=== PATIENT | male | born 1985 | race Caucasian/White ===

== ENCOUNTER 2016-11-21 11:51 | Emergency (ER) | payer MEDICAID ==
[2016-11-21] MEDS ORDERED: SODIUM CHLORIDE 0.9% 1,000 ML IV ONE (12:19)
[2016-11-21] MEDS ORDERED: ONDANSETRON 4 MG/2 ML VIAL IVP STA ×2 (12:19→13:04)
[2016-11-21] MEDS ORDERED: ONDANSETRON 4 MG/2 ML VIAL ONE ×2 (12:21→13:08)
[2016-11-21] MEDS ORDERED: KETOROLAC 60 MG/2 ML VIAL IVP STA (13:04)
[2016-11-21] MEDS ORDERED: KETOROLAC 30 MG/ML VIAL ONE (13:08)
== END 2016-11-21 13:34 | disposition home or self-care (01) ==
DX: K52.9 Noninfective gastroenteritis and colitis, unspecified (principal); J45.909 Unspecified asthma, uncomplicated; F17.200 Nicotine dependence, unspecified, uncomplicated

== ENCOUNTER 2016-12-02 13:55 | Emergency (ER) | payer MEDICAID ==
[2016-12-02 14:01] VITALS: BP 133/85
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
[2016-12-02] MEDS ORDERED: HYDROcod/ACETAM 5/325 MG TABLET ONE (14:43)
[2016-12-02] MEDS ORDERED: IBUPROFEN 600 MG TABLET PO ONE (14:43)
[2016-12-02] MEDS: IBUPROFEN 600 MG TABLET PO STA (14:44)
[2016-12-02] MEDS: BACITRACIN OINT TOP STA (14:44)
[2016-12-02] MEDS: HYDROcod/ACETAM 5/325 MG TABLET PO STA (14:44)
== END 2016-12-02 14:49 | disposition home or self-care (01) ==
LOC: ED 13:55
DX: T23.251A Burn of second degree of right palm, initial encounter (principal); T23.231A Burn of second degree of multiple right fingers (nail), not including thumb, initial encounter; X00.8XXA Other exposure to uncontrolled fire in building or structure, initial encounter; X06.3XXA Exposure to melting of other clothing and apparel, initial encounter; Y92.828 Other wilderness area as the place of occurrence of the external cause; J45.909 Unspecified asthma, uncomplicated; F17.200 Nicotine dependence, unspecified, uncomplicated
CPT/HCPCS: 99282; 99283

== ENCOUNTER 2016-12-08 14:32 | Emergency (ER) | payer MEDICAID ==
[2016-12-08] MEDS ORDERED: traMADol 50 MG TABLET PO STA (15:22)
[2016-12-08] MEDS ORDERED: traMADol 50 MG TABLET PO ONE (15:24)
== END 2016-12-08 15:37 | disposition home or self-care (01) ==
DX: T23.001D Burn of unspecified degree of right hand, unspecified site, subsequent encounter (principal); X08.8XXD Exposure to other specified smoke, fire and flames, subsequent encounter; J45.909 Unspecified asthma, uncomplicated; F17.200 Nicotine dependence, unspecified, uncomplicated
CPT/HCPCS: 99283; A9270

== ENCOUNTER 2016-12-10 14:45 | Outpatient (CLI) | payer MEDICAID | END 2016-12-10 14:46 | disposition critical access hospital (66) | DX: R42 Dizziness and giddiness (principal) | CPT/HCPCS: A0425; A0429 ==

== ENCOUNTER 2016-12-10 15:12 | Emergency (ER) | payer MEDICAID ==
[2016-12-10] MEDS ORDERED: LIDOCAINE PATCH 5% TOP STA (16:41)
[2016-12-10] MEDS ORDERED: SODIUM CHLORIDE 0.9% 1,000 ML IV ONE (16:41)
[2016-12-10] MEDS ORDERED: ONDANSETRON 4 MG/2 ML VIAL IVP STA (16:41)
[2016-12-10] MEDS ORDERED: LORazepam 2 MG/ML SYRINGE IVP STA (16:41)
[2016-12-10] MEDS ORDERED: LORazepam 2 MG/ML SYRINGE ONE (16:48)
[2016-12-10] MEDS ORDERED: ONDANSETRON 4 MG/2 ML VIAL ONE (16:50)
[2016-12-10] MEDS ORDERED: LIDOCAINE PATCH 5% TOP ONE (16:51)
[2016-12-10] MEDS ORDERED: FAMOTIDINE 20 MG TABLET PO STA (17:59)
[2016-12-10] MEDS ORDERED: MAG HYDROX/AL HYDROX/SIMETH 30 ML UDC PO STA (17:59)
[2016-12-10] MEDS ORDERED: LIDOCAINE VISCOUS 2% 15 ML UDC MM STA (17:59)
[2016-12-10] MEDS ORDERED: FAMOTIDINE 20 MG TABLET ONE (18:01)
[2016-12-10] MEDS ORDERED: MAG HYDROX/AL HYDROX/SIMETH 30 ML UDC ONE (18:02)
[2016-12-10] MEDS ORDERED: LIDOCAINE VISCOUS 2% 15 ML UDC MM ONE (18:02)
== END 2016-12-10 18:15 | disposition home or self-care (01) ==
DX: R42 Dizziness and giddiness (principal); T39.395A Adverse effect of other nonsteroidal anti-inflammatory drugs [NSAID], initial encounter; Y92.009 Unspecified place in unspecified non-institutional (private) residence as the place of occurrence of the external cause; J45.909 Unspecified asthma, uncomplicated; F17.200 Nicotine dependence, unspecified, uncomplicated; K29.00 Acute gastritis without bleeding; T23.201D Burn of second degree of right hand, unspecified site, subsequent encounter; X08.8XXD Exposure to other specified smoke, fire and flames, subsequent encounter
CPT/HCPCS: 36415; 80053; 80306; 80320; 81003; 83690; 85025; 93005; 93010; 96361; 96374; 96375; 99284; A9270; J2060

== ENCOUNTER 2016-12-17 15:14 | Emergency (ER) | payer MEDICAID ==
[2016-12-17] MEDS ORDERED: CYCLOBENZAPRINE 10 MG TABLET PO STA (17:02)
[2016-12-17] MEDS ORDERED: CYCLOBENZAPRINE 10 MG TABLET PO ONE (17:04)
== END 2016-12-17 18:07 | disposition left against medical advice (07) ==
DX: M54.2 Cervicalgia (principal); W13.2XXA Fall from, out of or through roof, initial encounter; J45.909 Unspecified asthma, uncomplicated; Z53.29 Procedure and treatment not carried out because of patient's decision for other reasons
CPT/HCPCS: 99282; 99283; A9270

== ENCOUNTER 2016-12-26 17:28 | Emergency (ER) | payer MEDICAID ==
[2016-12-26] MEDS ORDERED: IBUPROFEN 800 MG TABLET PO ONE (17:35)
[2016-12-26] MEDS ORDERED: HYDROcod/ACETAM 5/325 MG TABLET PO STA (17:40)
[2016-12-26] MEDS ORDERED: IPRATROPIUM/ALBUTEROL 3 ML NEB INH STA (17:40)
[2016-12-26] MEDS ORDERED: predniSONE 20 MG TABLET PO STA (17:40)
[2016-12-26] MEDS ORDERED: DOXYCYCLINE 100 MG TABLET PO STA (17:41)
[2016-12-26] MEDS ORDERED: predniSONE 20 MG TABLET ONE (17:43)
[2016-12-26] MEDS ORDERED: DOXYCYCLINE 100 MG TABLET PO ONE (17:43)
[2016-12-26] MEDS ORDERED: HYDROcod/ACETAM 5/325 MG TABLET ONE (17:43)
[2016-12-26] MEDS ORDERED: IPRATROPIUM/ALBUTEROL 3 ML NEB INH ONE (17:47)
== END 2016-12-26 18:57 | disposition home or self-care (01) ==
DX: M50.322 Other cervical disc degeneration at C5-C6 level (principal); J45.901 Unspecified asthma with (acute) exacerbation; K08.89 Other specified disorders of teeth and supporting structures; R05 Cough; F90.9 Attention-deficit hyperactivity disorder, unspecified type; M47.892 Other spondylosis, cervical region; W13.2XXA Fall from, out of or through roof, initial encounter; F17.200 Nicotine dependence, unspecified, uncomplicated; R03.0 Elevated blood-pressure reading, without diagnosis of hypertension; Z59.0 Homelessness
CPT/HCPCS: 72125; 94640; 99283; A9270; J7512; J7620

== ENCOUNTER 2017-01-09 12:01 | Emergency (ER) | payer MEDICAID ==
--- NOTE | 2017-01-09 13:03 | ED Physician Documentation ---
PD HPI HEENT - Stated complaint Stated Complaint: TOOTH PX/NAUSEA - Chief complaint Chief Complaint: Heent - History obtained from History obtained from: Patient - History of Present Illness Timing - onset: How many days ago (4) Timing - duration: Days (4) Timing - details: Gradual onset, Still present Location: Tooth Improves: Nothing Worsens: Everything Associated symptoms: Congestion, Other (nauasea) Similar symptoms before: Diagnosis (bad teeth) Recently seen: Emergency Dept (The patient was seen in the ED) - Additional information Additional information: 31 y/o male living in a tent on family property has had some trouble with his teeth and this is bad enough that he has been unable to eat for the past 4 days. He has pain with hot, cold, pressure and just about anything. He has only the four bottom front teeth left in his mouth. These are sensitive to everything and the patient feels that he is having the nausea because he is not eating. He reports that he is now staying in a tent and they have recently buried his father about a week ago. He has some asthma as well. He does not yet have his dental appointment. PD PAST MEDICAL HISTORY - Past Medical History Past Medical History: Yes Respiratory: Asthma Neuro: None Endocrine/Autoimmune: None GI: Pancreatitis Psych: ADD/ADHD - Past Surgical History Past Surgical History: Yes HEENT: Tonsil/Adenoidectomy - Present Medications Home Medications: Ambulatory Orders Medication Instructions Recorded Confirmed Torfinol 12/17/16 Albuterol Sulfate [Proventil Hfa 1 - 2 puffs IH Q4H PRN #1 12/26/16 Inhaler] hfa.[email or web address].ad predniSONE [Deltasone] 60 mg PO DAILY 5 Days 12/26/16 Clindamycin [Cleocin] 300 mg PO Q6H #28 capsule 01/09/17 HYDROcod/ACETAM 5/325 [[place] 5/325] 1 - 2 ea PO Q6H PRN #15 tablet 01/09/17 Ondansetron Odt [Zofran] 4 mg TL Q6H PRN #10 tablet 01/09/17 - Allergies Allergies/Adverse Reactions: Allergies Allergy/AdvReac Type Severity Reaction Status Date / Time meloxicam Allergy Intermediate Dizziness Verified 12/10/16 15:20 Penicillins Allergy Unknown Verified 12/02/16 14:00 prochlorperazine Allergy Anxiety Verified 12/02/16 14:00 [From Compazine] prochlorperazine edisylate * Allergy Anxiety Verified 12/02/16 14:00 [From Hangar Sevenazine] prochlorperazine maleate * Allergy Anxiety Verified 12/02/16 14:00 [From Hangar Sevenazine] - Social History Does the pt smoke?: Yes Smoking Status: Current every day smoker Does the pt drink ETOH?: No Does the pt have substance abuse?: Yes - Immunizations Immunizations are current?: Yes Immunizations: TDAP current <10years - POLST Patient has POLST: No PD ED PE NORMAL - HEENT HEENT: Atraumatic, PERRL, EOMI, Ears normal, Other (dry mucous membranes and dental decay is present on the lower 4 front teeth. These are the only natural teeth left in the mouth. There is decay at the gum line and a hole in the top of each tooth. ) - Neck Neck: Supple, no meningeal sign, No bony TTP - Cardiac Cardiac: No murmur, Other (tachy ) - Respiratory Respiratory: No respiratory distress, Other (there are transmitted rhonchi in all dorantes. ) - Abdomen Abdomen: Soft, Non tender - Back Back: No CVA TTP, No spinal TTP - Derm Derm: Normal color, Warm and dry, No rash - Extremities Extremities: No deformity, No edema - Neuro Neuro: No motor deficit, No sensory deficit - Psych Psych: Normal mood, Normal affect Results - Vitals Vitals: Vital Signs - 24 hr 01/09/17 12:01 Temperature 36.9 C Heart Rate 113 H Respiratory 18 Rate Blood Pressure 129/89 H O2 Saturation 95 Oxygen O2 Source Room air - Labs Labs: Laboratory Tests 01/09/17 01/09/17 01/09/17 13:00 13:12 13:12 WBC 9.0 RBC 4.63 L Hgb 15.1 Hct 43.9 MCV 94.6 H MCH 32.6 H MCHC 34.5 RDW 15.1 H Plt Count 220 MPV 7.9 Neut # 5.8 Lymph # 2.3 Ray # 0.7 Eos # 0.2 Baso # 0.0 Absolute Nucleated RBC 0.00 Nucleated RBCs 0.0 Sodium 135 Potassium 4.1 Chloride 105 Carbon Dioxide 22 Anion Gap 8.0 BUN 15 Creatinine 0.9 Estimated GFR (MDRD) 98 Glucose 120 H Calcium 9.3 Total Bilirubin 0.4 AST 27 ALT 38 Alkaline Phosphatase 77 Total Protein 7.0 Albumin 4.4 Globulin 2.6 Albumin/Globulin Ratio 1.7 Lipase 59 H Urine Color YELLOW Urine Clarity CLEAR Urine pH 6.0 Ur Specific [place] 1.010 Urine Protein NEGATIVE Urine Glucose (UA) NEGATIVE Urine Ketones NEGATIVE Urine Occult Blood NEGATIVE Urine Nitrite NEGATIVE Urine Bilirubin NEGATIVE Urine Urobilinogen 0.2 (NORMAL) Ur Leukocyte Esterase NEGATIVE Ur Microscopic Review NOT INDICATED Urine Culture Comments NOT INDICATED Urine Opiates Screen NEGATIVE Ur Oxycodone Screen NEGATIVE Urine Methadone Screen NEGATIVE Ur Propoxyphene Screen NEGATIVE Ur Barbiturates Screen NEGATIVE Ur Tricyclics Screen NEGATIVE Ur Phencyclidine Scrn NEGATIVE Ur Amphetamine Screen NEGATIVE U Methamphetamines Scrn NEGATIVE U Benzodiazepines Scrn NEGATIVE Urine Cocaine Screen NEGATIVE U Cannabinoids Screen POSITIVE H Procedures - IVC sono (time) 1410 Bedside IVC sono: IVC measures (cm) (1.64), IVC collapsed c insp (cm) (1.36), Euvolemia PD MEDICAL DECISION MAKING - ED course Complexity details: reviewed results, re-evaluated patient, considered differential, d/w patient ED course: 31 y/o male with nothing to eat or drink for the past 4 days with bad teeth on the bottom and stress of family has developed vomiting as well. An IV is begun and he is given an infusion of a banana bag some zofran and some toradal as well as some decadron. At the conclusion of the infusion his IVC was interrogated and he now appears euvolemic. His nausea improved but he continues to have pain. The exposed areas of the remaining teeth are covered with CAVIT to reduce irritation. Departure - Departure Disposition: 01 Home, Self Care Clinical Impression: Pain, dental, Dehydration Condition: Stable Instructions: ED Dehydration, ED Tooth Pain Follow-Up: [facility] [Provider Group] Prescriptions: Clindamycin [Cleocin] 300 mg PO Q6H #28 capsule HYDROcod/ACETAM 5/325 [[place] 5/325] 1 - 2 ea PO Q6H PRN #15 tablet PRN Reason: Pain Ondansetron Odt [Zofran] 4 mg TL Q6H PRN #10 tablet PRN Reason: Nausea / Vomiting
[2017-01-09] MEDS ORDERED: ONDANSETRON 4 MG/2 ML VIAL ONE (13:07)
[2017-01-09] MEDS ORDERED: CHERRY SYRUP 10 ML UDC PO ONE (13:07)
[2017-01-09] MEDS ORDERED: DEXAMETHASONE 10 MG/ML VIAL ONE (13:07)
[2017-01-09] MEDS ORDERED: KETOROLAC 30 MG/ML VIAL ONE (13:07)
[2017-01-09] MEDS: KETOROLAC 60 MG/2 ML VIAL IVP STA (13:19)
[2017-01-09] MEDS: FOLIC ACID INJ 1 MG, THIAMINE INJ 100 MG, MAGNESIUM SULFATE 2 GM, MULTIVITAMIN 10 ML in... IV STA ×5 (13:19)
[2017-01-09] MEDS: ONDANSETRON 4 MG/2 ML VIAL IVP STA (13:20)
[2017-01-09] MEDS: DEXAMETHASONE 10 MG/ML VIAL IVP STA (13:20)
[2017-01-09 13:27] LABS: BILIRUBIN,URINE NEGATIVE (NEGATIVE)
[2017-01-09 13:29] LABS: BASOPHILS % (AUTO) 0.4 %; EOSINOPHILS # (AUTO) 0.2 10^3/uL (0.0-0.7); EOSINOPHILS % (AUTO) 2.6 %; HCT - HEMATOCRIT 43.9 % (42.0-52.0); HGB - HEMOGLOBIN 15.1 g/dL (14.0-18.0); LYMPHOCYTES # (AUTO) 2.3 10^3/uL (1.5-3.5); LYMPHOCYTES % (AUTO) 25.1 %; MEAN CORPUSCULAR HEMOGLOBIN 32.6 pg (27.0-31.0); MEAN CORPUSCULAR HGB CONC 34.5 g/dL (32.0-36.0); MEAN CORPUSCULAR VOLUME 94.6 fL (80.0-94.0); MEAN PLATELET VOLUME 7.9 fL (7.4-11.4); MONOCYTES # (AUTO) 0.7 10^3/uL (0.0-1.0); MONOCYTES % (AUTO) 7.8 %; NEUTROPHILS # (AUTO) 5.8 10^3/uL (1.5-6.6); NEUTROPHILS % (AUTO) 64.1 %; RED BLOOD COUNT 4.63 10^6/uL (4.70-6.10); RED CELL DISTRIBUTION WIDTH 15.1 % (12.0-15.0)
[2017-01-09 13:34] LABS: UA CHARGE (STRIP ONLY) YES; UR CULTURE IF IND NOT INDICATED
[2017-01-09 13:40] LABS: ALBUMIN/GLOBULIN RATIO 1.7 (1.0-2.2); BILIRUBIN,TOTAL 0.4 mg/dL (0.2-1.0); CALCIUM 9.3 mg/dL (8.5-10.3); CREATININE 0.9 mg/dL (0.6-1.2); POTASSIUM 4.1 mmol/L (3.5-5.0)
[2017-01-09 14:29] VITALS: BP 128/78
== END 2017-01-09 14:34 | disposition home or self-care (01) ==
LOC: ED 12:01
DX: K08.89 Other specified disorders of teeth and supporting structures (principal); E86.0 Dehydration; J45.909 Unspecified asthma, uncomplicated; F17.200 Nicotine dependence, unspecified, uncomplicated
CPT/HCPCS: 80053; 80306; 81001; 81003; 83690; 85025; 87086; 96365; 96375; 99283; 99284

== ENCOUNTER 2017-02-06 11:50 | Emergency (ER) | payer MEDICAID ==
--- NOTE | 2017-02-06 15:08 | ED Physician Documentation ---
PD HPI HEENT - Stated complaint Stated Complaint: MOUTH PX - Chief complaint Chief Complaint: General - History obtained from History obtained from: Patient - History of Present Illness Timing - onset: How many days ago (5) Timing - duration: Days (5) Timing - details: Gradual onset, Still present Location: Tooth Improves: Other (beer) Worsens: Everything Associated symptoms: Congestion. No: Fever Similar symptoms before: Diagnosis (dental pain) Recently seen: Emergency Dept (Seen last month and treated with clindamyacin with improvement.) - Additional information Additional information: 31 y/o male with bad teeth on the bottom improved with treatment last time and has begun to have pain again. He is medicating this with beer and has begun to have the shakes when he is not drinking and he would like to stop drinking. Review of Systems Constitutional: denies: Fever Eyes: denies: Decreased vision Ears: denies: Ear pain Nose: reports: Congestion Throat: reports: Dental pain / toothache. denies: Sore throat Respiratory: reports: Cough. denies: Dyspnea GI: denies: Abdominal Pain, Nausea, Vomiting : denies: Dysuria, Frequency Skin: denies: Rash Musculoskeletal: denies: Neck pain, Back pain, Extremity pain Neurologic: denies: Generalized weakness, Focal weakness, Numbness PD PAST MEDICAL HISTORY - Past Medical History Respiratory: Asthma Neuro: None Endocrine/Autoimmune: None GI: Pancreatitis Psych: ADD/ADHD - Past Surgical History Past Surgical History: Yes HEENT: Tonsil/Adenoidectomy - Present Medications Home Medications: Ambulatory Orders Medication Instructions Recorded Confirmed Albuterol Sulfate [Proventil Hfa 1 - 2 puffs IH Q4H PRN #1 12/26/16 Inhaler] [email or web address] Clindamycin [Cleocin] 300 mg PO Q6H #28 capsule 02/06/17 HYDROcod/ACETAM 5/325 [Raymond 5/325] 1 - 2 ea PO Q6H PRN #15 tablet 02/06/17 Lorazepam [Ativan] 1 mg PO Q6HR PRN #20 tablet 02/06/17 - Allergies Allergies/Adverse Reactions: Allergies Allergy/AdvReac Type Severity Reaction Status Date / Time meloxicam Allergy Intermediate Dizziness Verified 02/06/17 12:14 Penicillins Allergy Unknown Verified 02/06/17 12:14 prochlorperazine Allergy Anxiety Verified 02/06/17 12:14 [From Compazine] prochlorperazine edisylate * Allergy Anxiety Verified 02/06/17 12:14 [From Compazine] prochlorperazine maleate * Allergy Anxiety Verified 02/06/17 12:14 [From Compazine] - Social History Does the pt smoke?: Yes Smoking Status: Current every day smoker Does the pt drink ETOH?: No Does the pt have substance abuse?: Yes - Immunizations Immunizations are current?: Yes Immunizations: TDAP current <10years - POLST Patient has POLST: No PD ED PE NORMAL - Vitals Vital signs reviewed: Yes (normal ) - HEENT HEENT: Atraumatic, PERRL, EOMI, Other (There is an uppper denture and 4 jena teeth in the front bottom all of which appear inflammed along the gum line. ) - Neck Neck: Supple, no meningeal sign, No bony TTP - Respiratory Respiratory: No respiratory distress - Derm Derm: Normal color, Warm and dry, No rash - Extremities Extremities: No deformity, No edema - Neuro Neuro: No motor deficit, No sensory deficit - Psych Psych: Normal mood, Normal affect Results - Vitals Vitals: Vital Signs - 24 hr 02/06/17 12:07 Temperature 36.8 C Heart Rate 96 Respiratory 16 Rate Blood Pressure 129/77 O2 Saturation 97 Oxygen O2 Source Room air PD MEDICAL DECISION MAKING - ED course Complexity details: considered differential, d/w patient ED course: 31 y/o male with a dental infection has been medicating with beer and wants to stop drinking. He has an appointment to see the dentist in 2 weeks. Departure - Departure Disposition: 01 Home, Self Care Clinical Impression: Pain, dental Alcohol withdrawal Qualifiers: Complication of substance-induced condition: uncomplicated Qualified Code(s): F10.230 - Alcohol dependence with withdrawal, uncomplicated Condition: Stable Instructions: ED Withdrawal Alcohol, ED Abscess Tooth Follow-Up: [facility] [Provider Group] Prescriptions: Lorazepam [Ativan] 1 mg PO Q6HR PRN #20 tablet PRN Reason: withdrawal symptoms Clindamycin [Cleocin] 300 mg PO Q6H #28 capsule HYDROcod/ACETAM 5/325 [Raymond 5/325] 1 - 2 ea PO Q6H PRN #15 tablet PRN Reason: Pain
[2017-02-06 15:36] VITALS: BP 141/97
== END 2017-02-06 15:33 | disposition home or self-care (01) ==
LOC: ED 11:50
DX: K08.89 Other specified disorders of teeth and supporting structures (principal); F17.200 Nicotine dependence, unspecified, uncomplicated; F10.230 Alcohol dependence with withdrawal, uncomplicated
CPT/HCPCS: 99283

== ENCOUNTER 2017-03-13 12:17 | Emergency (ER) | payer MEDICAID ==
[2017-03-13] MEDS ORDERED: SODIUM CHLORIDE 0.9% 1,000 ML IV ONE (12:28)
[2017-03-13] MEDS ORDERED: FOLIC ACID INJ 1 MG, THIAMINE INJ 100 MG, MAGNESIUM SULFATE 2 GM, MULTIVITAMIN 10 ML in... IV STA ×5 (12:35)
[2017-03-13] MEDS ORDERED: LORazepam 2 MG/ML SYRINGE IVP STA ×2 (12:36→14:24)
--- NOTE | 2017-03-13 12:42 | ED Physician Documentation ---
History of Present Illness - Stated complaint Stated Complaint: SOA/VOMITING - Chief complaint Chief Complaint: General - History obtained from History obtained from: Patient - Additonal information Additional information: Patient is a 31-year-old male with a history of alcoholism and asthma who presents with a complaint of nausea vomiting, and diarrhea. He has had these symptoms for the past couple days. He last consumed alcohol about a day ago. He says when he does not consume alcohol he often shakes but has never had blackouts. In general he has been trying to decrease his alcohol consumption. He also complains of low back pain which he thinks is unrelated to anything acute this low back pain is been present for a couple months. 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 It is worse when he eats and drinks. He does have a history of pancreatitis he says but it has been a long time he is unsure whether his symptoms are pancreatic in nature. Review of systems: For pertinent positive and negatives in the review of systems please see history of present illness. Otherwise all other systems have been reviewed and are negative. Dragon disclaimer: Parts of this medical record were created using voice recognition technology. Because of the inherent limitations of this system occasional same sounding word substitutions do occur and persist despite proofreading. Please read the document for context. Review of Systems Ten Systems: 10 systems reviewed and negative Constitutional: denies: Fever, Chills Cardiac: denies: Chest pain / pressure, Palpitations Respiratory: reports: Cough, Wheezing. denies: Dyspnea GI: reports: Abdominal Pain, Nausea, Vomiting, Diarrhea PD PAST MEDICAL HISTORY - Past Medical History Past Medical History: Yes Respiratory: Asthma Neuro: None Endocrine/Autoimmune: None GI: Pancreatitis Psych: ADD/ADHD - Past Surgical History Past Surgical History: Yes HEENT: Tonsil/Adenoidectomy - Present Medications Home Medications: Ambulatory Orders Medication Instructions Recorded Confirmed Ondansetron Odt [Zofran] 4 mg TL Q6H PRN #10 tablet 03/13/17 raNITIdine [Zantac] 150 mg PO DAILY #28 tablet 03/13/17 - Allergies Allergies/Adverse Reactions: Allergies Allergy/AdvReac Type Severity Reaction Status Date / Time meloxicam Allergy Intermediate Dizziness Verified 03/13/17 12:24 Penicillins Allergy Unknown Verified 03/13/17 12:24 prochlorperazine Allergy Anxiety Verified 03/13/17 12:24 [From Compazine] prochlorperazine edisylate * Allergy Anxiety Verified 03/13/17 12:24 [From Compazine] prochlorperazine maleate * Allergy Anxiety Verified 03/13/17 12:24 [From Compazine] - Social History Does the pt smoke?: Yes Smoking Status: Current every day smoker Does the pt drink ETOH?: Yes Does the pt have substance abuse?: No - Immunizations Immunizations are current?: Yes Immunizations: TDAP current <10years - POLST Patient has POLST: No PD ED PE NORMAL - General General: No acute distress, Well developed/nourished, Other (Flushed and tremulous. Very shaky. He is alert and oriented 3. Smells heavily of tobacco ) - HEENT HEENT: Atraumatic - Cardiac Cardiac: No murmur, No gallop, No rub, Other (Mildly tachycardic) - Respiratory Respiratory: Other (Occasional end expiratory wheezes) - Abdomen Abdomen: Normal bowel sounds, Soft, Non tender, Non distended - Back Back: No CVA TTP - Derm Derm: Warm and dry, No rash, Other - Extremities Extremities: No deformity, No tenderness to palpate - Neuro Neuro: Alert and oriented X 3, No motor deficit, No sensory deficit - Psych Psych: Normal mood, Normal affect Results - Vitals Vitals: Vital Signs - 24 hr 03/13/17 03/13/17 03/13/17 12:21 13:29 14:49 Temperature 36.8 C Heart Rate 122 H 79 81 Respiratory 16 16 16 Rate Blood Pressure 135/86 H 110/67 110/68 O2 Saturation 98 97 98 Oxygen O2 Source Room air - Labs Labs: Laboratory Tests 03/13/17 03/13/17 03/13/17 12:30 12:40 12:40 WBC 8.8 RBC 4.60 L Hgb 15.4 Hct 44.8 MCV 97.3 H MCH 33.4 H MCHC 34.3 RDW 13.4 Plt Count 203 MPV 8.3 Neut # 6.0 Lymph # 1.8 [place] # 0.9 Eos # 0.1 Baso # 0.1 Absolute Nucleated RBC 0.00 Nucleated RBCs 0.0 Sodium 135 Potassium 3.7 Chloride 103 Carbon Dioxide 22 Anion Gap 10.0 BUN 11 Creatinine 1.0 Estimated GFR (MDRD) 87 L Glucose 103 H Calcium 9.3 Total Bilirubin 0.8 AST 38 ALT 56 Alkaline Phosphatase 84 Total Protein 7.1 Albumin 4.2 Globulin 2.9 Albumin/Globulin Ratio 1.4 Lipase 36 Urine Color DARK YELLOW Urine Clarity CLOUDY Urine pH 6.0 Ur Specific [place] >=1.030 H Urine Protein NEGATIVE Urine Glucose (UA) NEGATIVE Urine Ketones 15 H Urine Occult Blood NEGATIVE Urine Nitrite NEGATIVE Urine Bilirubin MODERATE H Urine Urobilinogen 0.2 (NORMAL) Ur Leukocyte Esterase NEGATIVE Urine RBC 0-5 Urine WBC 4-5 Ur Squamous Epith Cells MOD Squamous H Urine Bacteria Moderate H Urine Mucus Few Strands Ur Microscopic Review INDICATED Urine Culture Comments NOT INDICATED Ethyl Alcohol < 5.0 PD MEDICAL DECISION MAKING - ED course Complexity details: reviewed old records, reviewed results, re-evaluated patient , considered differential, d/w patient ED course: Patient is a 31-year-old male who presents with a complaint of epigastric abdominal pain nausea vomiting and diarrhea. Historically think this patient has alcohol abuse issues although he says he gets by with drinking 3-4 times a week and gets shaky but otherwise does not have withdrawal symptoms. He does have emergency department care plan that recommend strongly against use of narcotics in this patient. He is supposed to be diverted back to see [facility]. The patient Presented mildly tachycardic and was tremulous. This might represent early alcohol withdrawal or perhaps even opiate withdrawal. 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 He does not have any numbness or weakness in his examination really is fairly benign I did not detect any tenderness epigastrium or any significant tenderness in the paraspinal muscles. He was given a liter of IV fluids here and 1 L of fluid with magnesium, thiamine and multivitamin. He is given a dose of Zofran and 2 doses of Ativan 1 mg each. We have addressed his hydration issue. In regards to his epigastric pain I suspect he might have a mild case of gastritis. His transaminases and lipase are normal. The patient did request narcotic Analgesics on a couple occasions. I told him I was not going to give him any opiates. I have reviewed his care planI think from a risk-benefit standpoint the use of antibiotics and other narcotics are contraindicated. I am directing him back to [facility] clinic. Disposition to home clinical impression: 1. Nausea vomiting diarrhea 2. Possible opiate and/or alcohol Withdrawal symptoms 3.Epigastric abdominal pain-suspect possible mild gastritis Departure - Departure Disposition: Home, Self Care Clinical Impression: Alcohol abuse, Gastritis and duodenitis Condition: Good Instructions: Alcoholism, ED Gastritis, ED Pain Management Contract Requ Follow-Up: [facility] [Provider Group] Prescriptions: raNITIdine [Zantac] 150 mg PO DAILY #28 tablet Ondansetron Odt [Zofran] 4 mg TL Q6H PRN #10 tablet PRN Reason: Nausea / Vomiting
[2017-03-13] MEDS ORDERED: LORazepam 2 MG/ML SYRINGE ONE ×2 (12:43→14:27)
[2017-03-13 12:54] LABS: BASOPHILS # (AUTO) 0.1 10^3/uL (0.0-0.1); BASOPHILS % (AUTO) 0.7 %; EOSINOPHILS # (AUTO) 0.1 10^3/uL (0.0-0.7); EOSINOPHILS % (AUTO) 1.4 %; HCT - HEMATOCRIT 44.8 % (42.0-52.0); HGB - HEMOGLOBIN 15.4 g/dL (14.0-18.0); LYMPHOCYTES # (AUTO) 1.8 10^3/uL (1.5-3.5); MEAN CORPUSCULAR HEMOGLOBIN 33.4 pg (27.0-31.0); MEAN CORPUSCULAR HGB CONC 34.3 g/dL (32.0-36.0); MEAN CORPUSCULAR VOLUME 97.3 fL (80.0-94.0); MEAN PLATELET VOLUME 8.3 fL (7.4-11.4); MONOCYTES # (AUTO) 0.9 10^3/uL (0.0-1.0); MONOCYTES % (AUTO) 9.9 %; RED CELL DISTRIBUTION WIDTH 13.4 % (12.0-15.0); UNCORRECTED WHITE BLOOD COUNT 8.8 x10^3/uL; WHITE BLOOD COUNT 8.8 x10^3/uL (4.8-10.8)
[2017-03-13 12:56] LABS: UA w/ MICROSCOPIC CHARGE YES
[2017-03-13 13:02] LABS: BILIRUBIN,URINE MODERATE (NEGATIVE)
[2017-03-13 13:08] LABS: UR CULTURE IF IND NOT INDICATED
[2017-03-13 13:12] LABS: ALBUMIN/GLOBULIN RATIO 1.4 (1.0-2.2); BILIRUBIN,TOTAL 0.8 mg/dL (0.2-1.0); BUN - BLOOD UREA NITROGEN 11 mg/dL (6-20); CALCIUM 9.3 mg/dL (8.5-10.3); CARBON DIOXIDE - CO2 22 mmol/L (21-32); CHLORIDE 103 mmol/L (101-111); GFR - MDRD 87 (>89); GLUCOSE 103 mg/dL (70-100); LIPASE 36 U/L (22-51); POTASSIUM 3.7 mmol/L (3.5-5.0); SODIUM 135 mmol/L (135-145); TOTAL PROTEIN 7.1 g/dL (6.7-8.2)
[2017-03-13] MEDS ORDERED: raNITIdine INJ 50 MG in SODIUM CHLORIDE 0.9% 50 ML IV ONE (13:17)
[2017-03-13] MEDS ORDERED: ONDANSETRON 4 MG/2 ML VIAL IVP STA (13:18)
[2017-03-13] MEDS ORDERED: FAMOTIDINE 20 MG/50 ML 50 ML IV STA (13:22)
[2017-03-13] MEDS ORDERED: ONDANSETRON 4 MG/2 ML VIAL ONE (13:22)
[2017-03-13] MEDS ORDERED: FAMOTIDINE 20 MG/50 ML 50 ML IV ONE (13:32)
[2017-03-13 14:49] VITALS: BP 110/68
== END 2017-03-13 16:05 | disposition home or self-care (01) ==
LOC: ED 12:17
DX: R11.2 Nausea with vomiting, unspecified (principal); R19.7 Diarrhea, unspecified; R10.13 Epigastric pain
CPT/HCPCS: 36415; 80053; 80320; 81001; 83690; 85025; 96365; 96366; 96368; 96375; 96376; 99284; J2060; J3411; 81003; 87086

== ENCOUNTER 2017-04-09 14:13 | Emergency (ER) | payer MEDICAID ==
[2017-04-09] MEDS: diphenhydrAMINE INJ 50 MG/ML VIAL IVP STA (17:09)
[2017-04-09] MEDS: METOCLOPRAMIDE 10 MG/2 ML VIAL IVP STA (17:09)
[2017-04-09] MEDS ORDERED: diphenhydrAMINE INJ 50 MG/ML VIAL ONE (17:09)
[2017-04-09] MEDS ORDERED: SODIUM CHLORIDE FLUSH 0.9% 10 ML SYRINGE IVP ONE (17:10)
[2017-04-09] MEDS: SODIUM CHLORIDE 0.9% 1,000 ML IV ONE (17:10)
[2017-04-09] MEDS ORDERED: METOCLOPRAMIDE 10 MG/2 ML VIAL ONE (17:10)
[2017-04-09 17:16] LABS: BASOPHILS # (AUTO) 0.1 10^3/uL (0.0-0.1); BASOPHILS % (AUTO) 0.6 %; EOSINOPHILS # (AUTO) 0.1 10^3/uL (0.0-0.7); EOSINOPHILS % (AUTO) 0.9 %; HCT - HEMATOCRIT 50.9 % (42.0-52.0); HGB - HEMOGLOBIN 17.2 g/dL (14.0-18.0); LYMPHOCYTES # (AUTO) 1.8 10^3/uL (1.5-3.5); LYMPHOCYTES % (AUTO) 17.9 %; MEAN CORPUSCULAR HEMOGLOBIN 33.1 pg (27.0-31.0); MEAN CORPUSCULAR HGB CONC 33.8 g/dL (32.0-36.0); MEAN PLATELET VOLUME 7.7 fL (7.4-11.4); MONOCYTES # (AUTO) 0.8 10^3/uL (0.0-1.0); MONOCYTES % (AUTO) 7.8 %; NEUTROPHILS # (AUTO) 7.5 10^3/uL (1.5-6.6); NEUTROPHILS % (AUTO) 72.8 %; RED BLOOD COUNT 5.19 10^6/uL (4.70-6.10); RED CELL DISTRIBUTION WIDTH 13.5 % (12.0-15.0); UNCORRECTED WHITE BLOOD COUNT 10.4 x10^3/uL; WHITE BLOOD COUNT 10.4 x10^3/uL (4.8-10.8)
[2017-04-09 17:25] LABS: ALBUMIN/GLOBULIN RATIO 1.6 (1.0-2.2); CALCIUM 9.5 mg/dL (8.5-10.3); CREATININE 1.1 mg/dL (0.6-1.2); POTASSIUM 4.1 mmol/L (3.5-5.0); TOTAL PROTEIN 7.5 g/dL (6.7-8.2)
[2017-04-09] MEDS ORDERED: LORazepam 2 MG/ML SYRINGE ONE (18:03)
[2017-04-09] MEDS: THIAMINE INJ 100 MG in SODIUM CHLORIDE 0.9% 50 ML IV STA (18:05)
[2017-04-09] MEDS: LORazepam 2 MG/ML SYRINGE IVP STA (18:05)
[2017-04-09 18:47] VITALS: BP 109/79
--- NOTE | 2017-04-09 18:50 | ED Physician Documentation ---
History of Present Illness - Stated complaint Stated Complaint: VOMITING - Chief complaint Chief Complaint: General - Additonal information Additional information: This patient is a 31-year-old male who has a admitted history of alcoholism. He normally drinks in the afternoon after working all day sleeps and then goes to work in the morning. Apparently this evening he apparently yesterday he was told that he has to quit drinking as a requirement of his current housing situation. Yesterday he started cutting back in alcohol and has not had much to drink for most of the day now presents feeling nauseous and jittery. It is unclear whether he is going to abstain from alcohol but he wants to at least try. He refuses going to treatment at this time. Review of systems: For pertinent positive and negatives in the review of systems please see the history of present illness, otherwise all other systems have been reviewed and are negative. Dragon disclaimer: Parts of this medical record were created using voice recognition technology. Because of the inherent limitations of this system, occasional same sounding word substitutions do occur and persist despite proofreading. Please read the document for context. Review of Systems Constitutional: denies: Fever, Chills, Myalgias Throat: denies: Dental pain / toothache Cardiac: denies: Chest pain / pressure, Palpitations Respiratory: denies: Dyspnea, Cough GI: reports: Nausea, Vomiting. denies: Abdominal Pain, Abdominal Swelling, Constipation, Diarrhea, Hematemesis : denies: Dysuria, Frequency, Hesitancy, Unable to Void, Hematuria Skin: denies: Rash, Lesions, Abrasion (s) Musculoskeletal: denies: Neck pain, Back pain, Extremity pain, Joint pain, Extremity swelling Neurologic: denies: Generalized weakness Psychiatric: denies: Depressed, Suicidal Endocrine: denies: Polydypsia PD PAST MEDICAL HISTORY - Past Medical History Respiratory: Asthma Neuro: None Endocrine/Autoimmune: None GI: Pancreatitis Psych: ADD/ADHD - Past Surgical History Past Surgical History: Yes HEENT: Tonsil/Adenoidectomy - Present Medications Home Medications: Ambulatory Orders Medication Instructions Recorded Confirmed Lorazepam [Ativan] 1 mg PO TID PRN #12 tablet 04/09/17 - Allergies Allergies/Adverse Reactions: Allergies Allergy/AdvReac Type Severity Reaction Status Date / Time meloxicam Allergy Intermediate Dizziness Verified 04/09/17 16:35 Penicillins Allergy Unknown Verified 04/09/17 16:35 prochlorperazine Allergy Anxiety Verified 04/09/17 16:35 [From Compazine] prochlorperazine edisylate * Allergy Anxiety Verified 04/09/17 16:35 [From Compazine] prochlorperazine maleate * Allergy Anxiety Verified 04/09/17 16:35 [From [employer]] - Social History Does the pt smoke?: Yes Smoking Status: Current every day smoker Does the pt drink ETOH?: Yes Does the pt have substance abuse?: No - Immunizations Immunizations are current?: Yes Immunizations: TDAP current <10years - POLST Patient has POLST: No PD ED PE NORMAL - Vitals Vital signs reviewed: Yes - General General: Alert and oriented X 3, Well developed/nourished - HEENT HEENT: Other - Neck Neck: Supple, no meningeal sign (Mild pupillary dilation bilaterally, mild tremulousness one episode of nausea witnessed) - Cardiac Cardiac: RRR, No murmur - Respiratory Respiratory: No respiratory distress - Abdomen Abdomen: Normal bowel sounds, Soft, Non tender, Non distended - Male Male : Deferred - Extremities Extremities: No deformity, No tenderness to palpate, Normal ROM s pain - Neuro Neuro: Alert and oriented X 3, No motor deficit, No sensory deficit - Psych Psych: Normal mood, Normal affect Results - Vitals Vitals: Vital Signs - 24 hr 04/09/17 04/09/17 14:17 17:59 Temperature 36.6 C 36.4 C L Heart Rate 97 74 Respiratory 20 18 Rate Blood Pressure 142/98 H 120/86 H O2 Saturation 97 100 Oxygen O2 Source Room air - Labs Labs: Laboratory Tests 04/09/17 04/09/17 17:00 17:00 WBC 10.4 RBC 5.19 Hgb 17.2 Hct 50.9 MCV 98.0 H MCH 33.1 H MCHC 33.8 RDW 13.5 Plt Count 266 MPV 7.7 Neut # 7.5 H Lymph # 1.8 [place] # 0.8 Eos # 0.1 Baso # 0.1 Absolute Nucleated RBC 0.00 Nucleated RBCs 0.0 Sodium 138 Potassium 4.1 Chloride 105 Carbon Dioxide 22 Anion Gap 11.0 BUN 9 Creatinine 1.1 Estimated GFR (MDRD) 78 L Glucose 102 H Calcium 9.5 Total Bilirubin 1.0 AST 27 ALT 24 Alkaline Phosphatase 102 Total Protein 7.5 Albumin 4.6 Globulin 2.9 Albumin/Globulin Ratio 1.6 Lipase 32 Ethyl Alcohol 6.2 PD MEDICAL DECISION MAKING - ED course Complexity details: reviewed old records, reviewed results, re-evaluated patient , considered differential ED course: Patient is a 31-year-old male who presents feeling jittery nauseated after not drinking for approximately 12 hours. On examination he is a rough appearing 31- year-old male who appears mildly tremulous. He is alert and oriented and does not look overtly toxic or ill. He has had a benign abdominal examination. He was given IV fluids, thiamine, Ativan, and Reglan here and he looks and feels better at this point in time he does not want to go into rehab he probably still getting continue drinking although is going to try and cut back which is a requirement of his current living situation. I did agree to write him for small amounts of Ativan to assist him but recommended that he consider formal alcohol detox. I have asked him to talk to his local Alcoholics Anonymous group for support. Disposition: To home Clinical impression: 1. History of alcoholism with possible early alcohol withdrawal symptoms Departure - Departure Disposition: 01 Home, Self Care Clinical Impression: Alcohol abuse counseling and surveillance Alcohol withdrawal Qualifiers: Complication of substance-induced condition: uncomplicated Qualified Code(s): F10.230 - Alcohol dependence with withdrawal, uncomplicated Instructions: ED Withdrawal Alcohol Follow-Up: [facility] [Provider Group] Prescriptions: Lorazepam [Ativan] 1 mg PO TID PRN #12 tablet PRN Reason: Alcohol Withdrawal
== END 2017-04-09 18:58 | disposition home or self-care (01) ==
LOC: ED 14:13
DX: F10.239 Alcohol dependence with withdrawal, unspecified (principal); J45.909 Unspecified asthma, uncomplicated; F17.200 Nicotine dependence, unspecified, uncomplicated
CPT/HCPCS: 36415; 80053; 80320; 83690; 85025; 96374; 96375; 99283; 99284; J2060; J3411; J7040

== ENCOUNTER 2017-04-12 07:50 | Emergency (ER) | payer MEDICAID ==
[2017-04-12] MEDS ORDERED: FAMOTIDINE 20 MG/50 ML 50 ML IV ONE ×2 (08:24→08:43)
[2017-04-12] MEDS ORDERED: SODIUM CHLORIDE 0.9% 1,000 ML IV ONE (08:24)
[2017-04-12] MEDS ORDERED: ONDANSETRON 4 MG/2 ML VIAL IVP STA (08:27)
[2017-04-12] MEDS ORDERED: LORazepam 2 MG/ML SYRINGE IVP STA (08:27)
--- NOTE | 2017-04-12 08:31 | ED Physician Documentation ---
PD HPI ABD PAIN - Stated complaint Stated Complaint: ABD PAIN - Chief complaint Chief Complaint: Abd Pain - History obtained from History obtained from: Patient - History of Present Illness Timing - onset: How many days ago (3) Timing - details: Still present Quality: Pain Location: Epigastric Radiation: Upper back Associated symptoms: Nausea, Vomiting, Diarrhea. No: Fever, Dysuria Similar symptoms before: Diagnosis (He reports history of pancreatitis 6 years ago.) Recently seen: Emergency Dept (3 days ago.) - Additional information Additional information: The patient is a 31-year-old male with history of alcoholism who quit drinking alcohol 3 days ago, and presents today with upper abdominal pain. His abdominal pain has been waxing and waning for the past 3 days. It radiates to his mid back. He was vomiting multiple times yesterday, and reports occasional diarrhea for the past 3 days. He denies fever or dysuria. His last alcohol was reportedly 3 days ago. He was seen in the emergency department here 3 days ago with tremulousness 12 hours after his last alcohol drink. He reports a history of pancreatitis about 6 years ago. He states his abdominal pain feels similar to when he had pancreatitis. Review of Systems Constitutional: denies: Fever Ears: denies: Tinnitus/ringing Nose: denies: Congestion Throat: denies: Sore throat Cardiac: denies: Chest pain / pressure Respiratory: reports: Cough (chronic smoker's cough.). denies: Dyspnea GI: reports: Abdominal Pain, Nausea, Vomiting, Diarrhea : denies: Dysuria Skin: denies: Rash Musculoskeletal: reports: Back pain. denies: Extremity pain Neurologic: denies: Focal weakness, Numbness, Headache PD PAST MEDICAL HISTORY - Past Medical History Respiratory: Asthma Neuro: None Endocrine/Autoimmune: None GI: Pancreatitis Psych: ADD/ADHD - Past Surgical History Past Surgical History: Yes HEENT: Tonsil/Adenoidectomy - Present Medications Home Medications: Ambulatory Orders Medication Instructions Recorded Confirmed Lorazepam [Ativan] 1 mg PO TID PRN #12 tablet 04/09/17 04/12/17 Lorazepam [Ativan] 1 mg PO TID PRN #15 tablet 04/12/17 Promethazine [Phenergan] 25 - 50 mg PO Q6H PRN #10 tab 04/12/17 raNITIdine [Zantac] 150 mg PO BID #30 tablet 04/12/17 - Allergies Allergies/Adverse Reactions: Allergies Allergy/AdvReac Type Severity Reaction Status Date / Time meloxicam Allergy Intermediate Dizziness Verified 04/12/17 08:00 Penicillins Allergy Unknown Verified 04/12/17 08:00 prochlorperazine Allergy Anxiety Verified 04/12/17 08:00 [From Compazine] prochlorperazine edisylate * Allergy Anxiety Verified 04/12/17 08:00 [From Compazine] prochlorperazine maleate * Allergy Anxiety Verified 04/12/17 08:00 [From Compazine] diphenhydramine HCl * AdvReac Anxiety Verified 04/12/17 08:00 [From Benadryl] - Social History Does the pt smoke?: Yes Smoking Status: Current every day smoker Does the pt drink ETOH?: Yes Does the pt have substance abuse?: No - Immunizations Immunizations are current?: Yes Immunizations: TDAP current <10years - POLST Patient has POLST: No PD ED PE NORMAL - Vitals Vital signs reviewed: Yes (tachycardic) - General General: Alert and oriented X 3, Well developed/nourished - HEENT HEENT: Atraumatic, EOMI, Pharynx benign - Neck Neck: Supple, no meningeal sign, No adenopathy, No JVD - Cardiac Cardiac: No murmur, Other (Rapid rate, regular rhythm.) - Respiratory Respiratory: No respiratory distress, Other (Faint expiratory wheezes bilaterally.) - Abdomen Abdomen: Normal bowel sounds, Soft, Other (Epigastric tenderness to palpation, without rebound or guarding.) - Back Back: No CVA TTP - Derm Derm: No rash - Extremities Extremities: No edema, No calf tenderness / cord - Neuro Neuro: Alert and oriented X 3, No motor deficit, No sensory deficit Results - Vitals Vitals: Oxygen O2 Source Room air - Labs Labs: Laboratory Tests 04/12/17 04/12/17 08:34 08:34 WBC 15.8 H RBC 4.89 Hgb 16.1 Hct 46.9 MCV 95.9 H MCH 32.9 H MCHC 34.3 RDW 13.2 Plt Count 208 MPV 7.6 Neut # 12.2 H Lymph # 2.1 [place] # 1.4 H Eos # 0.1 Baso # 0.1 Absolute Nucleated RBC 0.00 Nucleated RBCs 0.0 Sodium 134 L Potassium 3.5 Chloride 95 L Carbon Dioxide 26 Anion Gap 13.0 BUN 18 Creatinine 1.2 Estimated GFR (MDRD) 71 L Glucose 108 H Calcium 10.7 H Total Bilirubin 1.0 AST 33 ALT 26 Alkaline Phosphatase 98 Total Protein 7.7 Albumin 4.6 Globulin 3.1 Albumin/Globulin Ratio 1.5 Lipase 32 Ethyl Alcohol < 5.0 PD MEDICAL DECISION MAKING - ED course Complexity details: reviewed old records, reviewed results, re-evaluated patient , considered differential, d/w patient ED course: The patient's presentation is significant for alcoholic gastritis, and alcohol withdrawal symptoms. His lab results revealed normal liver enzymes and lipase. His white count is elevated at 15.8, but he clinically does not reveal evidence of intra-abdominal infectious process. Treatment in the emergency department included administration of normal saline 1 L IV, Zofran 4 mg IV, famotidine 20 mg IV, and lorazepam 1 mg IV. He felt subjectively improved with the above treatment, and repeat exam reveals a benign abdomen. I discussed alcohol treatment with him, and he declines any such referral. At discharge I did give him contact information for alcohol treatment facilities. He is being discharged with prescriptions for lorazepam and for Phenergan. I discussed with him potentially worrisome signs or symptoms that should prompt reevaluation in the emergency department. Departure - Departure Disposition: 01 Home, Self Care Clinical Impression: Alcohol withdrawal Qualifiers: Complication of substance-induced condition: uncomplicated Qualified Code(s): F10.230 - Alcohol dependence with withdrawal, uncomplicated Gastritis Qualifiers: Gastritis type: alcoholic Chronicity: acute Gastritis bleeding: without bleeding Qualified Code(s): K29.20 - Alcoholic gastritis without bleeding Condition: Stable Instructions: ED Gastritis Follow-Up: [facility] [Provider Group] [facility] [Provider Group] [facility] [Provider Group] Prescriptions: Lorazepam [Ativan] 1 mg PO TID PRN #15 tablet PRN Reason: Alcohol Withdrawal Promethazine [Phenergan] 25 - 50 mg PO Q6H PRN #10 tab PRN Reason: Nausea / Vomiting raNITIdine [Zantac] 150 mg PO BID #30 tablet Comments: Drink plenty of fluids. Refrain from alcohol. Take ranitidine twice daily as prescribed. You can use Ativan as prescribed if needed for alcohol withdrawal symptoms Schedule a followup appointment with primary physician as soon as possible. Return to the emergency department if you develop increasing abdominal pain, persistent vomiting, or otherwise worsening symptoms. Discharge Date/Time: 04/12/17 09:40
[2017-04-12 08:39] LABS: BASOPHILS # (AUTO) 0.1 10^3/uL (0.0-0.1); BASOPHILS % (AUTO) 0.3 %; EOSINOPHILS # (AUTO) 0.1 10^3/uL (0.0-0.7); EOSINOPHILS % (AUTO) 0.4 %; HCT - HEMATOCRIT 46.9 % (42.0-52.0); HGB - HEMOGLOBIN 16.1 g/dL (14.0-18.0); LYMPHOCYTES # (AUTO) 2.1 10^3/uL (1.5-3.5); LYMPHOCYTES % (AUTO) 13.6 %; MEAN CORPUSCULAR HEMOGLOBIN 32.9 pg (27.0-31.0); MEAN CORPUSCULAR HGB CONC 34.3 g/dL (32.0-36.0); MEAN CORPUSCULAR VOLUME 95.9 fL (80.0-94.0); MEAN PLATELET VOLUME 7.6 fL (7.4-11.4); MONOCYTES # (AUTO) 1.4 10^3/uL (0.0-1.0); MONOCYTES % (AUTO) 8.7 %; NEUTROPHILS # (AUTO) 12.2 10^3/uL (1.5-6.6); RED BLOOD COUNT 4.89 10^6/uL (4.70-6.10); RED CELL DISTRIBUTION WIDTH 13.2 % (12.0-15.0); UNCORRECTED WHITE BLOOD COUNT 15.8 x10^3/uL; WHITE BLOOD COUNT 15.8 x10^3/uL (4.8-10.8)
[2017-04-12] MEDS ORDERED: ONDANSETRON 4 MG/2 ML VIAL ONE (08:43)
[2017-04-12] MEDS ORDERED: LORazepam 2 MG/ML SYRINGE ONE (08:43)
[2017-04-12 08:51] LABS: ALBUMIN/GLOBULIN RATIO 1.5 (1.0-2.2); BUN - BLOOD UREA NITROGEN 18 mg/dL (6-20); CALCIUM 10.7 mg/dL (8.5-10.3); CARBON DIOXIDE - CO2 26 mmol/L (21-32); CHLORIDE 95 mmol/L (101-111); CREATININE 1.2 mg/dL (0.6-1.2); GFR - MDRD 71 (>89); GLUCOSE 108 mg/dL (70-100); LIPASE 32 U/L (22-51); POTASSIUM 3.5 mmol/L (3.5-5.0); SODIUM 134 mmol/L (135-145); TOTAL PROTEIN 7.7 g/dL (6.7-8.2)
[2017-04-12 09:32] VITALS: BP 126/69
== END 2017-04-12 09:40 | disposition home or self-care (01) ==
LOC: ED 07:50
DX: K29.20 Alcoholic gastritis without bleeding (principal); F10.239 Alcohol dependence with withdrawal, unspecified; J45.909 Unspecified asthma, uncomplicated; F17.200 Nicotine dependence, unspecified, uncomplicated
CPT/HCPCS: 36415; 80053; 80320; 83690; 85025; 96361; 96365; 96375; 99283; 99284; J2060

== ENCOUNTER 2017-04-24 10:15 | Emergency (ER) | payer MEDICAID ==
[2017-04-24] MEDS ORDERED: MULTIVITAMIN 10 ML in SODIUM CHLORIDE 0.9% 1,000 ML IV STA (11:33)
[2017-04-24] MEDS ORDERED: MAGNESIUM SULFATE 2 GRAM 50 ML IV STA (11:33)
[2017-04-24] MEDS ORDERED: THIAMINE INJ 100 MG, FOLIC ACID INJ 1 MG in SODIUM CHLORIDE 0.9% 100ML 100 ML IV STA (11:33)
[2017-04-24] MEDS ORDERED: DEXAMETHASONE 10 MG/ML VIAL IVP STA (11:34)
[2017-04-24] MEDS ORDERED: LORazepam 2 MG/ML SYRINGE IVP STA (11:34)
[2017-04-24] MEDS ORDERED: KETOROLAC 60 MG/2 ML VIAL IVP STA (11:34)
[2017-04-24 11:49] LABS: BASOPHILS # (AUTO) 0.1 10^3/uL (0.0-0.1); BASOPHILS % (AUTO) 0.3 %; EOSINOPHILS # (AUTO) 0.1 10^3/uL (0.0-0.7); EOSINOPHILS % (AUTO) 0.7 %; HCT - HEMATOCRIT 51.4 % (42.0-52.0); HGB - HEMOGLOBIN 17.2 g/dL (14.0-18.0); LYMPHOCYTES # (AUTO) 2.2 10^3/uL (1.5-3.5); LYMPHOCYTES % (AUTO) 13.2 %; MEAN CORPUSCULAR HEMOGLOBIN 32.6 pg (27.0-31.0); MEAN CORPUSCULAR HGB CONC 33.5 g/dL (32.0-36.0); MEAN CORPUSCULAR VOLUME 97.4 fL (80.0-94.0); MEAN PLATELET VOLUME 7.7 fL (7.4-11.4); MONOCYTES # (AUTO) 1.3 10^3/uL (0.0-1.0); MONOCYTES % (AUTO) 7.6 %; NEUTROPHILS # (AUTO) 13.1 10^3/uL (1.5-6.6); NEUTROPHILS % (AUTO) 78.2 %; NUCLEATED RED BLOOD CELLS AUTO 0.1 /100WBC; RED BLOOD COUNT 5.28 10^6/uL (4.70-6.10); RED CELL DISTRIBUTION WIDTH 13.4 % (12.0-15.0); UNCORRECTED WHITE BLOOD COUNT 16.7 x10^3/uL; WHITE BLOOD COUNT 16.7 x10^3/uL (4.8-10.8)
[2017-04-24] MEDS ORDERED: LORazepam 2 MG/ML SYRINGE ONE (11:57)
[2017-04-24] MEDS ORDERED: KETOROLAC 30 MG/ML VIAL ONE (11:58)
[2017-04-24] MEDS ORDERED: MAGNESIUM SULFATE 2 GRAM 50 ML IV ONE (11:58)
[2017-04-24] MEDS ORDERED: DEXAMETHASONE 10 MG/ML VIAL ONE (11:58)
[2017-04-24 12:13] LABS: ALBUMIN/GLOBULIN RATIO 1.6 (1.0-2.2); BILIRUBIN,TOTAL 0.7 mg/dL (0.2-1.0); CALCIUM 9.7 mg/dL (8.5-10.3); CREATININE 1.1 mg/dL (0.6-1.2); POTASSIUM 4.2 mmol/L (3.5-5.0); TOTAL PROTEIN 7.4 g/dL (6.7-8.2)
--- NOTE | 2017-04-24 12:40 | ED Physician Documentation ---
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 He did have a little bit of pain when he went to bed last night but this morning he can barely move. He is not having numbness or tingling is not having difficulty with urinary incontinence or fecal incontinence. He has pain with any movement.He felt like he did a good job of hydrating yesterday. He reports that he has decreased his alcohol intake from 12 beers a day to about 1 Beer per day and last cut down about 3-4 days ago. He has developed shakes and feels some symptoms of withdrawal. Review of Systems Constitutional: reports: Myalgias. denies: Fever, Chills Eyes: denies: Decreased vision Ears: denies: Ear pain Nose: denies: Congestion Throat: denies: Sore throat Respiratory: denies: Dyspnea, Cough GI: denies: Abdominal Pain, Nausea, Vomiting : denies: Dysuria, Frequency Skin: denies: Rash Musculoskeletal: reports: Back pain. denies: Neck pain Neurologic: denies: Generalized weakness, Focal weakness, Numbness PD PAST MEDICAL HISTORY - Past Medical History Respiratory: Asthma Neuro: None Endocrine/Autoimmune: None GI: Pancreatitis Psych: ADD/ADHD - Past Surgical History Past Surgical History: Yes HEENT: Tonsil/Adenoidectomy - Present Medications Home Medications: Ambulatory Orders Medication Instructions Recorded Confirmed Lorazepam [Ativan] 1 mg PO TID PRN #12 tablet 04/09/17 04/24/17 Lorazepam [Ativan] 1 mg PO TID PRN #15 tablet 04/12/17 04/24/17 Promethazine [Phenergan] 25 - 50 mg PO Q6H PRN #10 tab 04/12/17 04/24/17 raNITIdine [Zantac] 150 mg PO BID #30 tablet 04/12/17 04/24/17 Cyclobenzaprine [Flexeril] 10 mg PO TID PRN #20 tablet 04/24/17 HYDROcod/ACETAM 5/325 [Sumpter 5/325] 1 - 2 ea PO Q6H PRN #15 tablet 04/24/17 Lorazepam [Ativan] 1 mg PO Q6HR PRN #20 tablet 04/24/17 - Allergies Allergies/Adverse Reactions: Allergies Allergy/AdvReac Type Severity Reaction Status Date / Time meloxicam Allergy Intermediate Dizziness Verified 04/24/17 10:20 Penicillins Allergy Unknown Verified 04/24/17 10:20 prochlorperazine Allergy Anxiety Verified 04/24/17 10:20 [From Compazine] prochlorperazine edisylate * Allergy Anxiety Verified 04/24/17 10:20 [From Compazine] prochlorperazine maleate * Allergy Anxiety Verified 04/24/17 10:20 [From Compazine] diphenhydramine HCl * AdvReac Anxiety Verified 04/24/17 10:20 [From Benadryl] - Social History Does the pt smoke?: Yes Smoking Status: Current every day smoker Does the pt drink ETOH?: Yes Does the pt have substance abuse?: No - Immunizations Immunizations are current?: Yes Immunizations: TDAP current <10years - POLST Patient has POLST: No PD ED PE NORMAL - Vitals Vital signs reviewed: Yes (Hypertensive and tachycardic) - General General: Alert and oriented X 3, Well developed/nourished, Other (The patient has the shakes) - HEENT HEENT: Atraumatic, PERRL, Other (Dry mucous membranes) - Neck Neck: Supple, no meningeal sign, No bony TTP - Cardiac Cardiac: No murmur, Other (Tachycardic) - Respiratory Respiratory: No respiratory distress, Clear bilaterally - Abdomen Abdomen: Soft, Non tender - Back Back: No CVA TTP, No spinal TTP, Other (There is bilateral lower lumbar paraspinous muscle tenderness.) - Derm Derm: Normal color, Warm and dry, No rash - Extremities Extremities: No deformity, No edema - Neuro Neuro: Alert and oriented X 3, No motor deficit, No sensory deficit, Normal speech - Psych Psych: Normal mood, Normal affect Results - Vitals Vitals: Vital Signs - 24 hr 04/24/17 10:19 Temperature 36.1 C L Heart Rate 101 H Respiratory 18 Rate Blood Pressure 130/89 H O2 Saturation 99 Oxygen O2 Source Room air - Labs Labs: Laboratory Tests 04/24/17 04/24/17 10:43 10:43 WBC 16.7 H RBC 5.28 Hgb 17.2 Hct 51.4 MCV 97.4 H MCH 32.6 H MCHC 33.5 RDW 13.4 Plt Count 275 MPV 7.7 Neut # 13.1 H Lymph # 2.2 Crisp # 1.3 H Eos # 0.1 Baso # 0.1 Absolute Nucleated RBC 0.01 Nucleated RBCs 0.1 Sodium 135 Potassium 4.2 Chloride 100 L Carbon Dioxide 25 Anion Gap 10.0 BUN 11 Creatinine 1.1 Estimated GFR (MDRD) 78 L Glucose 88 Calcium 9.7 Total Bilirubin 0.7 AST 19 ALT 18 Alkaline Phosphatase 71 Total Protein 7.4 Albumin 4.5 Globulin 2.9 Albumin/Globulin Ratio 1.6 Lipase 24 Procedures - IVC sono (time) 1040 Bedside IVC sono: IVC measures (cm) (0.89), IVC collapsed c insp (cm) (complete) , Dehydration PD MEDICAL DECISION MAKING - ED course Complexity details: reviewed old records, reviewed results, re-evaluated patient , considered differential, d/w patient ED course: 31-year-old alcoholic male in alcohol withdrawal has developed back spasm after doing a lot of lifting yesterday and being dehydrated. Here in the emergency department he is administered dexamethasone 10 mg intravenously, a banana bag and 30 mg of Toradol. Departure - Departure Disposition: 01 Home, Self Care Clinical Impression: Back muscle spasm, Dehydration Alcohol withdrawal Qualifiers: Complication of substance-induced condition: uncomplicated Qualified Code(s): F10.230 - Alcohol dependence with withdrawal, uncomplicated Condition: Stable Instructions: ED Dehydration, ED Withdrawal Alcohol, ED Spasm Back No Trauma Follow-Up: [facility] [Provider Group] [facility] [Provider Group] Prescriptions: Lorazepam [Ativan] 1 mg PO Q6HR PRN #20 tablet PRN Reason: withdrawal symptoms Cyclobenzaprine [Flexeril] 10 mg PO TID PRN #20 tablet PRN Reason: Spasms HYDROcod/ACETAM 5/325 [Sumpter 5/325] 1 - 2 ea PO Q6H PRN #15 tablet PRN Reason: Pain Comments: Today in the Emergency Department your blood pressure was elevated. This can happen from the stress of the visit itself, from a current illness or circumstance or from uncontrolled hypertension. If you take blood pressure medications take your usual mediations, have your blood pressure re-checked in an appropriate setting and follow up any elevation with your primary care doctor.
[2017-04-24] MEDS ORDERED: ONDANSETRON 4 MG/2 ML VIAL IVP STA (13:12)
[2017-04-24] MEDS ORDERED: HYDROmorphone 1 MG/ML SYRINGE IVP STA (13:12)
[2017-04-24] MEDS ORDERED: HYDROmorphone 1 MG/ML SYRINGE ONE (13:20)
[2017-04-24] MEDS ORDERED: ONDANSETRON 4 MG/2 ML VIAL ONE (13:20)
[2017-04-24 13:39] VITALS: BP 147/78
== END 2017-04-24 13:42 | disposition home or self-care (01) ==
LOC: ED 10:15
DX: M62.830 Muscle spasm of back (principal); E86.0 Dehydration; F10.230 Alcohol dependence with withdrawal, uncomplicated
CPT/HCPCS: 36415; 80053; 83690; 85025; 96365; 96366; 96375; 99283; 99284; J1170; J2060; J3411

== ENCOUNTER 2017-04-29 18:01 | Outpatient (CLI) | payer MEDICAID | END 2017-04-29 18:02 | disposition critical access hospital (66) | LOC: EMS 18:01 | PROVIDERS: ATTEND Surgery | DX: R07.89 Other chest pain (principal) | CPT/HCPCS: A0425; A0427 ==

== ENCOUNTER 2017-04-29 18:26 | Observation (INO) | payer MEDICAID ==
[2017-04-29 18:49] LABS: BILIRUBIN,URINE NEGATIVE (NEGATIVE)
[2017-04-29] MEDS ORDERED: LORazepam 2 MG/ML SYRINGE IVP STA (18:49)
[2017-04-29] MEDS ORDERED: SODIUM CHLORIDE 0.9% 1,000 ML IV ONE (18:49)
[2017-04-29 18:52] LABS: UA CHARGE (STRIP ONLY) YES; UR CULTURE IF IND NOT INDICATED
--- NOTE | 2017-04-29 18:52 | ED Physician Documentation ---
PD HPI ABD PAIN - Stated complaint Stated Complaint: CP - Chief complaint Chief Complaint: Cardiac - History obtained from History obtained from: Patient, EMS - History of Present Illness Timing - onset: Other (31-year-old gentleman with history of tobacco and alcohol abuse admits to recent attempts to decrease his drinking. He has had mild diarrhea for the last few days. 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 They were moving boulders by hand and he suddenly developed severe upper back pain radiating straight through to the chest. He felt like he needed to have a bowel movement and try to but was unsuccessful. Pain is continuous. He has never had this before. There is no associated shortness of breath, pedal edema, or calf pain.) Review of Systems Ten Systems: 10 systems reviewed and negative Constitutional: denies: Fever, Chills Nose: denies: Rhinorrhea / runny nose, Congestion Cardiac: denies: Pedal edema, Calf pain Respiratory: denies: Dyspnea, Cough GI: denies: Abdominal Pain, Nausea, Vomiting, Bloody / black stool : denies: Dysuria, Frequency PD PAST MEDICAL HISTORY - Past Medical History Respiratory: Asthma Neuro: None Endocrine/Autoimmune: None GI: Pancreatitis Psych: ADD/ADHD - Past Surgical History Past Surgical History: Yes HEENT: Tonsil/Adenoidectomy - Present Medications Home Medications: Ambulatory Orders Medication Instructions Recorded Confirmed Lorazepam [Ativan] 1 mg PO TID PRN #12 tablet 04/09/17 04/29/17 Promethazine [Phenergan] 25 - 50 mg PO Q6H PRN #10 tab 04/12/17 04/24/17 raNITIdine [Zantac] 150 mg PO BID #30 tablet 04/12/17 04/24/17 Cyclobenzaprine [Flexeril] 10 mg PO TID PRN #20 tablet 04/24/17 04/29/17 HYDROcod/ACETAM 5/325 [[place] 5/325] 1 - 2 ea PO Q6H PRN #15 tablet 04/24/17 - Allergies Allergies/Adverse Reactions: Allergies Allergy/AdvReac Type Severity Reaction Status Date / Time meloxicam Allergy Intermediate Dizziness Verified 04/29/17 18:30 Penicillins Allergy Unknown Verified 04/29/17 18:30 prochlorperazine Allergy Anxiety Verified 04/29/17 18:30 [From Compazine] prochlorperazine edisylate * Allergy Anxiety Verified 04/29/17 18:30 [From Compazine] prochlorperazine maleate * Allergy Anxiety Verified 04/29/17 18:30 [From Compazine] diphenhydramine HCl * AdvReac Anxiety Verified 04/29/17 18:30 [From Benadryl] - Social History Does the pt smoke?: Yes Smoking Status: Current every day smoker Does the pt drink ETOH?: Yes Does the pt have substance abuse?: No - Immunizations Immunizations are current?: Yes Immunizations: TDAP current <10years - POLST Patient has POLST: No PD ED PE NORMAL - Vitals Vital signs reviewed: Yes (Tachycardic) - General General: Alert and oriented X 3, Other (Quite shaky) - HEENT HEENT: PERRL, EOMI - Neck Neck: Supple, no meningeal sign, No bony TTP - Cardiac Cardiac: No murmur, Other (Tachycardic) - Respiratory Respiratory: No respiratory distress, Clear bilaterally - Abdomen Abdomen: Soft, Non tender - Back Back: No CVA TTP, No spinal TTP - Derm Derm: Normal color, Warm and dry - Extremities Extremities: No deformity, No tenderness to palpate, No edema, No calf tenderness / cord - Neuro Neuro: Alert and oriented X 3, slab tripper 2-12 intact, No motor deficit, No sensory deficit, Other (Seems fairly shaky with a fine tremor consistent with probably alcohol withdrawal) Results - Vitals Vitals: Vital Signs - 24 hr 04/29/17 04/29/17 04/29/17 18:28 19:25 20:45 Temperature 36.6 C Heart Rate 126 H 95 109 H Respiratory 20 16 16 Rate Blood Pressure 115/72 144/75 H 132/93 H O2 Saturation 93 96 100 Oxygen O2 Source Room air - EKG (time done) 1832 Rate: Rate (enter#) (124) Rhythm: Sinus tachycardia Reva: Normal Intervals: Normal SC Ischemia: ST elevation c/w repol Computer interpretation: Agree with computer - Labs Labs: Laboratory Tests 04/29/17 04/29/17 04/29/17 18:41 18:41 19:48 WBC 8.8 RBC 4.26 L Hgb 14.1 Hct 41.3 L MCV 96.8 H MCH 33.1 H MCHC 34.2 RDW 13.3 Plt Count 243 MPV 7.4 Neut # 5.9 Lymph # 2.1 [place] # 0.6 Eos # 0.2 Baso # 0.1 Absolute Nucleated RBC 0.00 Nucleated RBCs 0.0 Sodium Potassium Chloride Carbon Dioxide Anion Gap BUN Creatinine Estimated GFR (MDRD) Glucose Calcium Total Bilirubin AST ALT Alkaline Phosphatase Troponin I Total Protein Albumin Globulin Albumin/Globulin Ratio Lipase Urine Color YELLOW Urine Clarity CLEAR Urine pH 6.0 Ur Specific [place] <=1.005 Urine Protein NEGATIVE Urine Glucose (UA) NEGATIVE Urine Ketones TRACE Urine Occult Blood NEGATIVE Urine Nitrite NEGATIVE Urine Bilirubin NEGATIVE Urine Urobilinogen 0.2 (NORMAL) Ur Leukocyte Esterase NEGATIVE Ur Microscopic Review NOT INDICATED Urine Culture Comments NOT INDICATED Urine Opiates Screen NEGATIVE Ur Oxycodone Screen NEGATIVE Urine Methadone Screen NEGATIVE Ur Propoxyphene Screen NEGATIVE Ur Barbiturates Screen NEGATIVE Ur Tricyclics Screen NEGATIVE Ur Phencyclidine Scrn NEGATIVE Ur Amphetamine Screen NEGATIVE U Methamphetamines Scrn NEGATIVE U Benzodiazepines Scrn POSITIVE H Urine Cocaine Screen NEGATIVE U Cannabinoids Screen POSITIVE H Ethyl Alcohol 04/29/17 04/29/17 19:48 19:48 WBC RBC Hgb Hct MCV MCH MCHC RDW Plt Count MPV Neut # Lymph # [place] # Eos # Baso # Absolute Nucleated RBC Nucleated RBCs Sodium 136 Potassium 3.7 Chloride 104 Carbon Dioxide 23 Anion Gap 9.0 BUN 11 Creatinine 0.9 Estimated GFR (MDRD) 98 Glucose 84 Calcium 8.7 Total Bilirubin 0.4 AST 14 ALT 13 Alkaline Phosphatase 58 Troponin I 0.33 Total Protein 5.7 L Albumin 3.4 Globulin 2.3 Albumin/Globulin Ratio 1.5 Lipase 23 Urine Color Urine Clarity Urine pH Ur Specific [place] Urine Protein Urine Glucose (UA) Urine Ketones Urine Occult Blood Urine Nitrite Urine Bilirubin Urine Urobilinogen Ur Leukocyte Esterase Ur Microscopic Review Urine Culture Comments Urine Opiates Screen Ur Oxycodone Screen Urine Methadone Screen Ur Propoxyphene Screen Ur Barbiturates Screen Ur Tricyclics Screen Ur Phencyclidine Scrn Ur Amphetamine Screen U Methamphetamines Scrn U Benzodiazepines Scrn Urine Cocaine Screen U Cannabinoids Screen Ethyl Alcohol 21.3 - Rads (name of study) cT cHEST ANGIO Radiology: EMP read contemporaneously (Negative for PE/dissection) PD MEDICAL DECISION MAKING - ED course ED course: 31-year-old gentleman with alcohol withdrawal presents with chest and abdominal pain with an EKG demonstrating only early repolarization pattern and tachycardia. He did appear to be in alcohol withdrawal and was administered IV fluids and Ativan with some improvement but was having a lot of nausea and got a couple of doses of morphine for the pain as well. Of note his troponin was 0.33 which is elevated for a young man without comorbid illnesses. Case was discussed by phone with [facility], Dr. 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 PE and dissection were considered as well, however there is no evidence of either on Angiogram of the chest. Spoke with Dr. Simon for admission at 8:56 PM Departure - Departure Disposition: ED Place in Observation Clinical Impression: Troponin level elevated Alcohol withdrawal Qualifiers: Complication of substance-induced condition: uncomplicated Qualified Code(s): F10.230 - Alcohol dependence with withdrawal, uncomplicated Chest pain Qualifiers: Chest pain type: unspecified Qualified Code(s): R07.9 - Chest pain, unspecified Condition: Serious Discharge Date/Time: 04/29/17 22:00
[2017-04-29] MEDS ORDERED: LORazepam 2 MG/ML SYRINGE ONE (19:08)
[2017-04-29] MEDS ORDERED: MORPHINE 2 MG/ML CARPUJECT IVP STA ×3 (19:36→21:46)
[2017-04-29] MEDS ORDERED: PROMETHAZINE INJ 25 MG in SODIUM CHLORIDE 0.9% 50 ML IV STA (19:36)
[2017-04-29] MEDS ORDERED: MORPHINE 2 MG/ML CARPUJECT ONE ×3 (19:46→20:48)
[2017-04-29] MEDS ORDERED: PROMETHAZINE 25 MG/1 ML VIAL ONE (19:46)
[2017-04-29 19:57] LABS: BASOPHILS # (AUTO) 0.1 10^3/uL (0.0-0.1); BASOPHILS % (AUTO) 0.7 %; EOSINOPHILS # (AUTO) 0.2 10^3/uL (0.0-0.7); EOSINOPHILS % (AUTO) 1.8 %; HCT - HEMATOCRIT 41.3 % (42.0-52.0); HGB - HEMOGLOBIN 14.1 g/dL (14.0-18.0); LYMPHOCYTES # (AUTO) 2.1 10^3/uL (1.5-3.5); MEAN CORPUSCULAR HEMOGLOBIN 33.1 pg (27.0-31.0); MEAN CORPUSCULAR HGB CONC 34.2 g/dL (32.0-36.0); MEAN CORPUSCULAR VOLUME 96.8 fL (80.0-94.0); MEAN PLATELET VOLUME 7.4 fL (7.4-11.4); MONOCYTES # (AUTO) 0.6 10^3/uL (0.0-1.0); MONOCYTES % (AUTO) 6.8 %; NEUTROPHILS # (AUTO) 5.9 10^3/uL (1.5-6.6); NEUTROPHILS % (AUTO) 66.7 %; RED BLOOD COUNT 4.26 10^6/uL (4.70-6.10); RED CELL DISTRIBUTION WIDTH 13.3 % (12.0-15.0); UNCORRECTED WHITE BLOOD COUNT 8.8 x10^3/uL; WHITE BLOOD COUNT 8.8 x10^3/uL (4.8-10.8)
[2017-04-29 20:11] LABS: ALBUMIN/GLOBULIN RATIO 1.5 (1.0-2.2); BILIRUBIN,TOTAL 0.4 mg/dL (0.2-1.0); CALCIUM 8.7 mg/dL (8.5-10.3); CREATININE 0.9 mg/dL (0.6-1.2); POTASSIUM 3.7 mmol/L (3.5-5.0); TOTAL PROTEIN 5.7 g/dL (6.7-8.2)
[2017-04-29] MEDS ORDERED: METOPROLOL 5 MG/5 ML VIAL IVP STA (20:23)
[2017-04-29] MEDS ORDERED: ASPIRIN 325 MG TABLET PO STA (20:23)
[2017-04-29] MEDS ORDERED: IOPAMIDOL-300 100 ML VIAL IVP ONE (20:29)
[2017-04-29] MEDS ORDERED: METOPROLOL 5 MG/5 ML VIAL IVP ONE ×2 (20:37→20:47)
[2017-04-29] MEDS ORDERED: ASPIRIN 325 MG TABLET PO ONE ×2 (20:37→20:47)
--- NOTE | 2017-04-29 20:56 | CT Preliminary Report ---
Exam: CT Chest Angio (AORTA) IMPRESSION: 1. Negative for aneurysm or dissection. Unremarkable other visualized vascular structures, including pulmonary arteries. 2. Mild bibasilar atelectasis or scarring and other incidental or chronic findings. [facility] SITE ID: [id number]
--- NOTE | 2017-04-29 20:58 | CT Report ---
<H1.> EXAM: CT ANGIOGRAM CHEST EXAM DATE: 04/29/2017 08:31 PM. CLINICAL HISTORY: Chest/back pain. COMPARISONS: None. TECHNIQUE: Routine axial helical CT angiographic imaging was performed through the chest. IV Contrast: 100 cc Is ovue-300. Reconstructions: Coronal, sagittal, and 3D MIP reconstructions of the aorta. In accordance with CT protocol optimization, one or more of the following dose reduction techniques w ere utilized for this exam: automated exposure control, adjustment of mA and/or KV based on patient s ize, or use of iterative reconstructive technique. FINDINGS: Vascular Structures: Normal. No aneurysm, dissection, or significant atherosclerotic disease of the t horacic aorta. The visualized pulmonary arteries also well visualized and within normal limits. Lungs/Pleura: Small blebs in medial apices, right more than left. Mild bibasilar atelectasis or scarr ing, right more than left. Otherwise unremarkable. No effusion or pneumothorax. Mediastinum: Normal heart size. No pericardial effusion. No coronary artery calcifications. No lympha denopathy. Upper abdomen: Normal. The liver, spleen, pancreas, adrenal glands, gallbladder and kidneys are tamica l in size and demonstrate no masses or abnormal enhancement. Bones: No significant abnormality. Other: None. IMPRESSION: 1. Negative for aneurysm or dissection. Unremarkable other visualized vascular structures, including pulmonary arteries. 2. Mild bibasilar atelectasis or scarring and other incidental or chronic findings. [facility] Referring Provider Line: [phone] SITE ID: [id number]
[2017-04-29] MEDS ORDERED: CYCLOBENZAPRINE 10 MG TABLET PO PRN (21:00)
[2017-04-29] MEDS ORDERED: MORPHINE 2 MG/ML CARPUJECT IVP PRN (21:01)
[2017-04-29] MEDS ORDERED: NITROGLYCERIN SL 0.4 MG TABLET SL PRN (21:01)
[2017-04-29] MEDS ORDERED: PROCHLORPERAZINE 10 MG/2 ML VIAL IVP PRN (21:01)
[2017-04-29] MEDS ORDERED: ZOLPIDEM 5 MG TABLET PO PRN (21:01)
[2017-04-29] MEDS ORDERED: ACETAMINOPHEN 325 MG TABLET PO PRN (21:01)
[2017-04-29] MEDS ORDERED: PROMETHAZINE 25 MG/1 ML VIAL IM PRN (21:01)
[2017-04-29] MEDS ORDERED: IBUPROFEN 600 MG TABLET PO PRN (21:01)
--- NOTE | 2017-04-29 22:24 | HISTORY & PHYSICAL EXAMINATION ---
Chief Complaint - Chief Complaint Chief Complaint: Chest and lower back pain History of Present Illness - Admitted From Admitted From:: Emergency department - History Obtained From Records Reviewed: Yes History obtained from: Patient Exam Limitations: None - History of Present Illness HPI Comment/Other: Patient is a 31-year-old gentleman with a past medical history significant for obesity, tobacco and alcohol abuse who presented to the emergency department with a chief complaint of left-sided chest pain and lower back pain. 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 He states that he has been having issues with chronic low back pain since starting the job. The patient states that the pain he experienced today however was very different. He states that around 2 PM today while he was lifting a cement block he had a sudden onset of left-sided chest pain as well as lower back pain which she states started around the same time. He states that the left-sided chest pain was 9 out of 10 , it was sharp and non-radiating. The patient states it was localized on the left side of his chest. He states that he has some associated nausea but no vomiting and no diaphoresis. The patient denied having any shortness of air, fevers, chills but does admit to some mild cough. The patient states that the chest pain is made worse with deep breathing, coughing and with having a bowel movement. The patient stated that the pain did improve after he received aspirin and morphine in the emergency department the pain was down to a 6 out of 10 when I saw him. The patient also admits to having diarrhea for the last 2 days he states that he has had loose stools but is only having 2 bowel movements a day. The patient also states that he has been cutting down on alcohol use over the last 2 weeks. He states that he was previously drinking a 12 pack of beer a night but has cut down to 124 ounce beer a night. He states that with cutting back on the alcohol he has noticed that he has had shakes. He does admit to having some shakes today. He also admits to having a headache. He otherwise denies any blurred vision, runny nose, sore throat, abdominal pain, muscle aches, joint pains, joint swelling, lower extremity swelling, orthopnea, PND, urinary urgency, urinary frequency, dysuria or focal neurologic deficits. On presentation to the emergency department the patient was afebrile he was however tachycardic with a heart rate of 126 and did become hypertensive while he was in the emergency department. The patient otherwise was not in any respiratory distress. The patient did appear to be quite flushed and shaky. The patient's EKG showed some early repolarization in the anterior leads but otherwise did not reveal any obvious ischemic changes. The patient's initial lab work did reveal a troponin of 0.33 which is mildly abnormal. Patient's lab work otherwise was negative. Dr. Izquierdo spoke with a stenographic court reporter on-call at [facility] who was unimpressed by the troponin of 0.33. 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 He recommended that the patient be placed in observation at [facility] and have repeat serial troponins and an echocardiogram. If the patient' s troponin became significantly elevated then he would likely need to be transferred to [facility]. The patient was given aspirin and morphine in the emergency department. Review of Systems - Other Findings Other Findings: A comprehensive review of systems was performed the pertinent positives and negatives are stated above in the HPI the remainder of the review of systems is negative History - Past Medical History Respiratory: reports: Asthma Neuro: reports: None Endocrine/Autoimmune: reports: None GI: reports: Pancreatitis Psych: reports: ADD/ADHD MRSA Hx?: No Other Past Medical History: 1. Asthma. 2. Obesity. 3. Alcohol abuse. 4. Tobacco abuse. 5. Marijuana use. 6. Tonsillectomy - Past Surgical History HEENT: reports: Tonsil/Adenoidectomy - Family & Social History Family History: Mother: Cancer (Breast cancer) Family History Comment/Other: Grandfather had cancer of unknown type and mother had breast cancer no family history of coronary artery disease or diabetes Living arrangement: At home Living Situation: Alone Social History Notes: Patient was born in [place], [place] and has lived in [place], [place] for 15 years. He is not , he does not have any children and lives alone. He has been working doing [email or web address] for the last 3 months. Patient smokes a quarter pack a day of cigarettes and has been smoking since the age of 13. The patient drinks 124 ounce beer a day but had been drinking a 12 pack of beer a day for many years he began drinking at the age of 22. The patient smokes marijuana a few times a week. He denies any other illicit drug use - POLST Patient has POLST: No POLST Status: Full Code Meds/Allgy - Home Medications Home Medications: Ambulatory Orders Medication Instructions Recorded Confirmed Lorazepam [Ativan] 1 mg PO TID PRN #12 tablet 04/09/17 04/29/17 Promethazine [Phenergan] 25 - 50 mg PO Q6H PRN #10 tab 04/12/17 04/24/17 raNITIdine [Zantac] 150 mg PO BID #30 tablet 04/12/17 04/24/17 Cyclobenzaprine [Flexeril] 10 mg PO TID PRN #20 tablet 04/24/17 04/29/17 HYDROcod/ACETAM 5/325 [[place] 5/325] 1 - 2 ea PO Q6H PRN #15 tablet 04/24/17 - Allergies Allergies/Adverse Reactions: Allergies Allergy/AdvReac Type Severity Reaction Status Date / Time meloxicam Allergy Intermediate Dizziness Verified 04/29/17 18:30 Penicillins Allergy Unknown Verified 04/29/17 18:30 prochlorperazine Allergy Anxiety Verified 04/29/17 18:30 [From Compazine] prochlorperazine edisylate * Allergy Anxiety Verified 04/29/17 18:30 [From Compazine] prochlorperazine maleate * Allergy Anxiety Verified 04/29/17 18:30 [From Compazine] diphenhydramine HCl * AdvReac Anxiety Verified 04/29/17 18:30 [From Benadryl] Exam - Vital Signs Reviewed Vital Signs: Yes Vital Signs: Vital Signs x48h Pulse Resp BP Pulse Ox 04/29/17 21:16 90 18 156/100 H 100 - Physical Exam General Appearance: positive: Alert, Mild distress (Shaky), Other (Poor hygiene) Eyes Bilateral: positive: Normal inspection, PERRL, EOMI, No lid inflammation, Conjunctivae nml, No scleral icterus ENT: positive: ENT inspection nml, Pharynx nml, Dry mucous membranes. negative : Purulent nasal drainage, Pharyngeal erythema, Oral lesions Neck: positive: Nml inspection, Thyroid nml, No JVD, Trachea midline. negative : Thyromegaly, Lymphadenopathy (R), Lymphadenopathy (L), Carotid bruit, Tracheal deviation Respiratory: positive: Chest non-tender, No respiratory distress, Breath sounds nml. negative: Wheezes, Rales, Rhonchi Cardiovascular: positive: No murmur, No gallop, Tachycardia, Other (Left chest wall tenderness) Peripheral Pulses: positive: 2+ Abdomen: positive: Non-tender, No organomegaly, Nml bowel sounds, No distention. negative: Guarding, Rebound, Hepatomegaly Back: positive: Nml inspection, Other (Lower back spasms of the paraspinal muscles in the lumbosacral spine). negative: CVA tenderness (R), CVA tenderness (L) Skin: positive: Color nml, No rash, Warm, Dry. negative: Cyanosis, Diaphoresis , Pallor Extremities: positive: Non-tender, Full ROM, Nml appearance, No pedal edema, Pedal edema Neurologic/Psychiatric: positive: Oriented x3, CN's nml (2-12), Motor nml, Sensation nml, Mood/affect nml Conclusion/Plan - Problem List (1) Chest pain Conclusion/Plan: The patient's chest pain most likely appears to be musculoskeletal as patient's chest wall is tender to palpation and the pain occurred with lifting and pulling at work in conjunction to low back pain. The patient is also cutting back on alcohol use and does have some mild symptoms of alcohol withdrawal. The patient's EKG showed early repolarization in the anterior leads and troponin was mildly elevated at 0.33. Cardiology at [facility] felt this could be alcoholic pericarditis. The patient does have risk factor of obesity and smoking but given his age he has lower risk for an [place]. Plan: Start patient on aspirin and Lipitor Start metoprolol 25 mg every 6 hours Serial troponins Telemetry monitoring Nitroglycerin as needed for chest pain Morphine as needed for chest pain Echocardiogram Lipid profile If troponin continues to rise then patient may need transfer for cardiology consultation. Qualifiers: Chest pain type: unspecified Qualified Code(s): R07.9 - Chest pain, unspecified (2) Alcohol abuse Conclusion/Plan: Patient has history of alcohol abuse. Was drinking up to 12 beers a day just 2 weeks ago but has been cutting down on his own at home. He is experiencing some shaking and some nausea. Patient was tachycardic on presentation and mildly hypertensive in the emergency department. This could all be due to some mild alcohol withdrawal. Plan: Patient counseled on need to quit drinking and referral made to social work. Placed on alcohol withdrawal protocol with Ativan as needed Start banana bag with multivitamin, folic acid, thiamine and normal saline Monitor for worsening withdrawal (3) Back muscle spasm Conclusion/Plan: Patient appears to have spasms in the lower back at the paraspinal muscles. This is likely secondary to muscle strain from heavy lifting at work. Plan: Muscle relaxantFlexeril Tylenol as needed and ibuprofen as needed. Vicodin for severe pain. Patient advised to use better technique when lifting and may consider rest from work. (4) Tobacco abuse Conclusion/Plan: Patient continues to smoke quarter pack cigarettes a day. He is not currently interested in quitting smoking as he states it helps him through his day. Patient advised to quit and counseled. Offered nicotine patch - Lab Results Lab results reviewed: Yes Fish Bones: 04/29/17 19:48 04/29/17 19:48 Other Lab Results: Laboratory Results WBC 8.8 x10^3/uL (4.8-10.8) 04/29/17 19:48 RBC 4.26 10^6/uL (4.70-6.10) L 04/29/17 19:48 Hgb 14.1 g/dL (14.0-18.0) 04/29/17 19:48 Hct 41.3 % (42.0-52.0) L 04/29/17 19:48 MCV 96.8 fL (80.0-94.0) H 04/29/17 19:48 MCH 33.1 pg (27.0-31.0) H 04/29/17 19:48 MCHC 34.2 g/dL (32.0-36.0) 04/29/17 19:48 RDW 13.3 % (12.0-15.0) 04/29/17 19:48 Plt Count 243 10^3/uL (130-450) 04/29/17 19:48 MPV 7.4 fL (7.4-11.4) 04/29/17 19:48 Neut # 5.9 10^3/uL (1.5-6.6) 04/29/17 19:48 Lymph # 2.1 10^3/uL (1.5-3.5) 04/29/17 19:48 [place] # 0.6 10^3/uL (0.0-1.0) 04/29/17 19:48 Eos # 0.2 10^3/uL (0.0-0.7) 04/29/17 19:48 Baso # 0.1 10^3/uL (0.0-0.1) 04/29/17 19:48 Absolute Nucleated RBC 0.00 x10^3/uL 04/29/17 19:48 Nucleated RBCs 0.0 /100WBC 04/29/17 19:48 Sodium 136 mmol/L (135-145) 04/29/17 19:48 Potassium 3.7 mmol/L (3.5-5.0) 04/29/17 19:48 Chloride 104 mmol/L (101-111) 04/29/17 19:48 Carbon Dioxide 23 mmol/L (21-32) 04/29/17 19:48 Anion Gap 9.0 (6-13) 04/29/17 19:48 BUN 11 mg/dL (6-20) 04/29/17 19:48 Creatinine 0.9 mg/dL (0.6-1.2) 04/29/17 19:48 Estimated GFR (MDRD) 98 (>89) 04/29/17 19:48 Glucose 84 mg/dL (70-100) 04/29/17 19:48 Calcium 8.7 mg/dL (8.5-10.3) 04/29/17 19:48 Total Bilirubin 0.4 mg/dL (0.2-1.0) 04/29/17 19:48 AST 14 IU/L (10-42) 04/29/17 19:48 ALT 13 IU/L (10-60) 04/29/17 19:48 Alkaline Phosphatase 58 IU/L (42-121) 04/29/17 19:48 Troponin I 0.33 ng/mL (<0.49) 04/29/17 19:48 Total Protein 5.7 g/dL (6.7-8.2) L 04/29/17 19:48 Albumin 3.4 g/dL (3.2-5.5) 04/29/17 19:48 Globulin 2.3 g/dL (2.1-4.2) 04/29/17 19:48 Albumin/Globulin Ratio 1.5 (1.0-2.2) 04/29/17 19:48 Lipase 23 U/L (22-51) 04/29/17 19:48 Urine Color YELLOW 04/29/17 18:41 Urine Clarity CLEAR (CLEAR) 04/29/17 18:41 Urine pH 6.0 PH (5.0-7.5) 04/29/17 18:41 Ur Specific [place] <=1.005 (1.002-1.030) 04/29/17 18:41 Urine Protein NEGATIVE mg/dL (NEGATIVE) 04/29/17 18:41 Urine Glucose (UA) NEGATIVE mg/dL (NEGATIVE) 04/29/17 18:41 Urine Ketones TRACE mg/dL (NEGATIVE) 04/29/17 18:41 Urine Occult Blood NEGATIVE (NEGATIVE) 04/29/17 18:41 Urine Nitrite NEGATIVE (NEGATIVE) 04/29/17 18:41 Urine Bilirubin NEGATIVE (NEGATIVE) 04/29/17 18:41 Urine Urobilinogen 0.2 (NORMAL) E.U./dL (NORMAL) 04/29/17 18:41 Ur Leukocyte Esterase NEGATIVE (NEGATIVE) 04/29/17 18:41 Ur Microscopic Review NOT INDICATED 04/29/17 18:41 Urine Culture Comments NOT INDICATED 04/29/17 18:41 Urine Opiates Screen NEGATIVE (NEGATIVE) 04/29/17 18:41 Ur Oxycodone Screen NEGATIVE (NEGATIVE) 04/29/17 18:41 Urine Methadone Screen NEGATIVE (NEGATIVE) 04/29/17 18:41 Ur Propoxyphene Screen NEGATIVE (NEGATIVE) 04/29/17 18:41 Ur Barbiturates Screen NEGATIVE (NEGATIVE) 04/29/17 18:41 Ur Tricyclics Screen NEGATIVE (NEGATIVE) 04/29/17 18:41 Ur Phencyclidine Scrn NEGATIVE (NEGATIVE) 04/29/17 18:41 Ur Amphetamine Screen NEGATIVE (NEGATIVE) 04/29/17 18:41 U Methamphetamines Scrn NEGATIVE (NEGATIVE) 04/29/17 18:41 U Benzodiazepines Scrn POSITIVE (NEGATIVE) H 04/29/17 18:41 Urine Cocaine Screen NEGATIVE (NEGATIVE) 04/29/17 18:41 U Cannabinoids Screen POSITIVE (NEGATIVE) H 04/29/17 18:41 Ethyl Alcohol 21.3 mg/dL 04/29/17 19:48 - Diagnostic Imaging Results Diagnostic Imaging Results: positive: Final report reviewed Diagnostic Imaging Results Comments: CT angiography of the chest Impression: 1. Negative for aneurysm or dissection. Unremarkable other visualized vascular structures, including pulmonary arteries. 2. Mild bibasilar atelectasis or scarring and other incidental or chronic findings. - EKG Results EKG Interpreted Independently: Yes EKG Findings: Early repolarization in the anterior leads. No ST elevations or ischemic changes are noted. Issues/Core Measures - Anticipated LOS Anticipated Stay Length: 2 or more midnights - DVT/VTE - Prophylaxis VTE/DVT Device ordered at admit?: Yes
[2017-04-29] MEDS: SODIUM CHLORIDE FLUSH 0.9% 10 ML SYRINGE IVP SCH (22:27)
[2017-04-29] MEDS: ONDANSETRON 4 MG/2 ML VIAL IVP PRN (22:27)
[2017-04-29] MEDS: METOPROLOL TARTRATE 25 MG TABLET PO SCH (22:27)
[2017-04-29] MEDS: MORPHINE 2 MG/ML CARPUJECT IVP PRN (22:27)
[2017-04-29] MEDS: LORazepam 0.5 MG TABLET PO PRN (22:46)
[2017-04-30] MEDS: HYDROcod/ACETAM 5/325 MG TABLET PO PRN ×3 (00:04→08:58)
[2017-04-30] MEDS: LORazepam 0.5 MG TABLET PO PRN ×6 (00:04→09:30)
[2017-04-30] MEDS: MORPHINE 2 MG/ML CARPUJECT IVP PRN ×2 (01:42→05:14)
[2017-04-30] MEDS: SODIUM CHLORIDE FLUSH 0.9% 10 ML SYRINGE IVP PRN ×2 (01:43→05:14)
[2017-04-30] MEDS: METOPROLOL TARTRATE 25 MG TABLET PO SCH ×2 (04:14→10:15)
--- NOTE | 2017-04-30 04:58 | Discharge Plan ---
Discharge Plan Disposition: 07 Against Medical Advice Condition: Fair Diet: Regular Activity Restrictions: Activity as Tolerated Shower Restrictions: No Driving Restrictions: No Weight Bearing: Full Weight Additional Instructions or Follow Up instructions: No Smoking: If you smoke, Please STOP! Call for help.
--- NOTE | 2017-04-30 05:03 | DISCHARGE SUMMARY ---
Discharge Summary Admit Date: 04/29/17 Condition at Discharge: Fair Discharge Disposition: 07 Against Medical Advice - ALLERGIES Allergies/Adverse Reactions: Allergies Allergy/AdvReac Type Severity Reaction Status Date / Time meloxicam Allergy Intermediate Dizziness Verified 04/29/17 18:30 Penicillins Allergy Unknown Verified 04/29/17 18:30 prochlorperazine Allergy Anxiety Verified 04/29/17 18:30 [From Compazine] prochlorperazine edisylate * Allergy Anxiety Verified 04/29/17 18:30 [From Compazine] prochlorperazine maleate * Allergy Anxiety Verified 04/29/17 18:30 [From Compazine] diphenhydramine HCl * AdvReac Anxiety Verified 04/29/17 18:30 [From Benadryl] - MEDICATIONS Home Medications: Ambulatory Orders Medication Instructions Recorded Confirmed Lorazepam [Ativan] 1 mg PO TID PRN #12 tablet 04/09/17 04/29/17 Promethazine [Phenergan] 25 - 50 mg PO Q6H PRN #10 tab 04/12/17 04/24/17 raNITIdine [Zantac] 150 mg PO BID #30 tablet 04/12/17 04/24/17 Cyclobenzaprine [Flexeril] 10 mg PO TID PRN #20 tablet 04/24/17 04/29/17 HYDROcod/ACETAM 5/325 [[place] 5/325] 1 - 2 ea PO Q6H PRN #15 tablet 04/24/17 - LABS Result Diagrams: 04/29/17 19:48 04/29/17 19:48
[2017-04-30] MEDS: SODIUM CHLORIDE FLUSH 0.9% 10 ML SYRINGE IVP SCH ×3 (06:21→10:35)
[2017-04-30] MEDS ORDERED: PANTOPRAZOLE 40 MG TABLET PO SCH (07:00)
[2017-04-30 08:39] LABS: ALBUMIN/GLOBULIN RATIO 1.7 (1.0-2.2); BILIRUBIN,TOTAL 0.4 mg/dL (0.2-1.0); BUN - BLOOD UREA NITROGEN 12 mg/dL (6-20); CALCIUM 8.9 mg/dL (8.5-10.3); CARBON DIOXIDE - CO2 25 mmol/L (21-32); CHLORIDE 102 mmol/L (101-111); CHOL/HDL RATIO 3.5 (<5.0); CHOLESTEROL 144 mg/dL; GFR - MDRD 87 (>89); GLUCOSE 144 mg/dL (70-100); HDL CHOLESTEROL 41 mg/dL; LDL/HDL RATIO 2.1 (<3.6); POTASSIUM 3.5 mmol/L (3.5-5.0); SODIUM 136 mmol/L (135-145); TRIGLYCERIDES 83 mg/dL; VLDL CHOLESTEROL 17 mg/dL
[2017-04-30] MEDS ORDERED: MULTIVITAMIN 10 ML in SODIUM CHLORIDE 0.9% 1,000 ML IV SCH (09:00)
[2017-04-30] MEDS ORDERED: ASPIRIN EC 81 MG TABLET PO SCH (09:00)
[2017-04-30] MEDS ORDERED: POLYETHYLENE GLYCOL 3350 17 GM PACKET PO SCH (09:00)
[2017-04-30] MEDS ORDERED: THIAMINE INJ 100 MG, FOLIC ACID INJ 1 MG in SODIUM CHLORIDE 0.9% 100ML 100 ML IV SCH (09:00)
[2017-04-30 10:15] VITALS: BP 132/78
[2017-04-30] MEDS: ONDANSETRON 4 MG/2 ML VIAL IVP PRN (10:35)
--- NOTE | 2017-04-30 10:57 | PROVIDER PROGRESS NOTE ---
Subjective - Prog Note Date Prog Note Date: 04/30/17 - Subjective Pt reports feeling: Improved Subjective: pt state he want to go home as soon as possible. pt report he does not have chest pain any more. pt report he had chest pain at left anterior chest which is producible and tender by palpitation. Pt report he has mild chronic back pain as well. No shortness of breathing, diaphoresis, palpitations or other complaints reported Current Medications - Current Medications Current Medications: I callled pharmacy, pharmacy told me pt did not have home medications. The medications in home medication list on [facility] are the medications ER provider gave to pt. Objective - Vital Signs/Intake & Output Vital Signs: Vital Signs x48h Temp Pulse Resp BP BP Pulse Ox 04/30/17 10:15 132/78 H 04/30/17 07:30 36.7 C 88 20 115/62 99 04/30/17 05:13 81 22 118/82 H 04/30/17 04:20 36.6 C 96 18 97/64 95 04/30/17 04:14 97/64 Intake & Output: Intake & Output 04/27/17 04/28/17 04/29/17 04/30/17 23:59 23:59 23:59 23:59 Intake Total 1500 Output Total 1050 Balance 450 - Objective General Appearance: positive: No acute distress, Alert. negative: Lethargic Eyes Bilateral: positive: Normal inspection, PERRL. negative: No lid inflammation, Conjunctivae nml ENT: positive: ENT inspection nml, Pharynx nml, No signs of dehydration. negative: Purulent nasal drainage, Pharyngeal erythema Neck: positive: Nml inspection, Thyroid nml, No JVD, Trachea midline. negative : Thyromegaly, Lymphadenopathy (R), Lymphadenopathy (L), Stiff neck, Swelling/ bruising, Tracheal deviation Respiratory: positive: Chest non-tender, No respiratory distress, Breath sounds nml. negative: Wheezes, Rales, Rhonchi Cardiovascular: positive: Regular rate & rhythm, No murmur, No gallop. negative : Irregularly irregular, Tachycardia, Bradycardia, Systolic murmur, Diastolic murmur Peripheral Pulses: 2+ Radial (R), 2+ Radial (L), 2+ Dorsalis pedis (R), 2+ Dorsalis pedis (L) Abdomen: positive: Non-tender, Nml bowel sounds, No distention. negative: Tenderness, Guarding, Rebound Back: positive: Nml inspection. negative: CVA tenderness (R), CVA tenderness (L ) Skin: positive: Color nml, Warm, Dry. negative: Cyanosis, Diaphoresis, Pallor, Skin rash Extremities: positive: Non-tender, Full ROM, Nml appearance. negative: Pedal edema, Calf tenderness, Pato's sign/cords Neurologic/Psychiatric: positive: Oriented x3, Motor nml, Sensation nml, Mood/ affect nml. negative: Sensory loss, Facial droop, Slurred/abnml speech, Depressed mood/affect - Lab Results Fish Bones: 04/29/17 19:48 04/30/17 08:10 Other Labs: Lab Results x24hrs 04/30/17 04/30/17 04/30/17 Range/Units 08:10 08:10 08:10 Sodium 136 (135-145) mmol/L Potassium 3.5 (3.5-5.0) mmol/L Chloride 102 (101-111) mmol/L Carbon Dioxide 25 (21-32) mmol/L Anion Gap 9.0 (6-13) BUN 12 (6-20) mg/dL Creatinine 1.0 (0.6-1.2) mg/dL Estimated GFR (MDRD) 87 L (>89) Glucose 144 H (70-100) mg/dL Calcium 8.9 (8.5-10.3) mg/dL Total Bilirubin 0.4 (0.2-1.0) mg/dL AST 16 (10-42) IU/L ALT 14 (10-60) IU/L Alkaline Phosphatase 60 (42-121) IU/L Troponin I 0.35 (<0.49) ng/mL B-Natriuretic Peptide 41 (5-100) pg/mL Total Protein 6.0 L (6.7-8.2) g/dL Albumin 3.8 (3.2-5.5) g/dL Globulin 2.2 (2.1-4.2) g/dL Albumin/Globulin Ratio 1.7 (1.0-2.2) Triglycerides 83 ( - 149) mg/dL Cholesterol 144 ( - 199) mg/dL LDL Cholesterol, Calc 86 ( - 129) mg/dL VLDL Cholesterol 17 mg/dL HDL Cholesterol 41 L (60 - ) mg/dL LDL/HDL Ratio 2.1 (<3.6) Cholesterol/HDL Ratio 3.5 (<5.0) 04/30/17 Range/Units 02:15 Sodium (135-145) mmol/L Potassium (3.5-5.0) mmol/L Chloride (101-111) mmol/L Carbon Dioxide (21-32) mmol/L Anion Gap (6-13) BUN (6-20) mg/dL Creatinine (0.6-1.2) mg/dL Estimated GFR (MDRD) (>89) Glucose (70-100) mg/dL Calcium (8.5-10.3) mg/dL Total Bilirubin (0.2-1.0) mg/dL AST (10-42) IU/L ALT (10-60) IU/L Alkaline Phosphatase (42-121) IU/L Troponin I 0.34 (<0.49) ng/mL B-Natriuretic Peptide (5-100) pg/mL Total Protein (6.7-8.2) g/dL Albumin (3.2-5.5) g/dL Globulin (2.1-4.2) g/dL Albumin/Globulin Ratio (1.0-2.2) Triglycerides ( - 149) mg/dL Cholesterol ( - 199) mg/dL LDL Cholesterol, Calc ( - 129) mg/dL VLDL Cholesterol mg/dL HDL Cholesterol (60 - ) mg/dL LDL/HDL Ratio (<3.6) Cholesterol/HDL Ratio (<5.0) Assessment/Plan - Problem List (1) Chest pain Impression: 1) Chest pain Conclusion/Plan: pt denies chest pain now. three troponin negative. EKG indicate ST before which could be etiology from pt's alcoholic withdrawal. now HR is down to 88, ECHO is pending plan D/C today The patient's chest pain most likely appears to be musculoskeletal as patient's chest wall is tender to palpation and the pain occurred with lifting and pulling at work in conjunction to low back pain. The patient is also cutting back on alcohol use and does have some mild symptoms of alcohol withdrawal. The patient's EKG showed early repolarization in the anterior leads and troponin was mildly elevated at 0.33. 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 The patient does have risk factor of obesity and smoking but given his age he has lower risk for an NC. Plan: Start patient on aspirin and Lipitor Start metoprolol 25 mg every 6 hours Serial troponins Telemetry monitoring Nitroglycerin as needed for chest pain Morphine as needed for chest pain Echocardiogram Lipid profile If troponin continues to rise then patient may need transfer for cardiology consultation. Qualifiers: Chest pain type: unspecified Qualified Code(s): R07.9 - Chest pain, unspecified (2) Alcohol abuse Conclusion/Plan: it is pt's major issue. advise pt quit alcohol, and referral to social work Patient has history of alcohol abuse. Was drinking up to 12 beers a day just 2 weeks ago but has been cutting down on his own at home. He is experiencing some shaking and some nausea. Patient was tachycardic on presentation and mildly hypertensive in the emergency department. This could all be due to some mild alcohol withdrawal. Plan: Patient counseled on need to quit drinking and referral made to social work. Placed on alcohol withdrawal protocol with Ativan as needed Start banana bag with multivitamin, folic acid, thiamine and normal saline Monitor for worsening withdrawal (3) Back muscle spasm Conclusion/Plan: continue current treatment Patient appears to have spasms in the lower back at the paraspinal muscles. This is likely secondary to muscle strain from heavy lifting at work. Plan: Muscle relaxantFlexeril Tylenol as needed and ibuprofen as needed. Vicodin for severe pain. Patient advised to use better technique when lifting and may consider rest from work. (4) Tobacco abuse Conclusion/Plan: Patient continues to smoke quarter pack cigarettes a day. He is not currently interested in quitting smoking as he states it helps him through his day. Patient advised to quit and counseled. Offered nicotine patch Qualifiers: Chest pain type: unspecified Qualified Code(s): R07.9 - Chest pain, unspecified
--- NOTE | 2017-04-30 11:33 | Discharge Plan ---
Discharge Plan Disposition: 01 Home, Self Care Condition: Stable Prescriptions: Lorazepam [Ativan] 1 mg PO TID PRN #12 tablet PRN Reason: Alcohol Withdrawal HYDROcod/ACETAM 5/325 [Ram[place] 5/325] 1 - 2 ea PO Q6H PRN #15 tablet PRN Reason: Pain Promethazine [Phenergan] 25 - 50 mg PO Q6H PRN #10 tab PRN Reason: Nausea / Vomiting raNITIdine [Zantac] 150 mg PO BID #30 tablet Diet: Regular Activity Restrictions: Activity as Tolerated Shower Restrictions: No Driving Restrictions: No Weight Bearing: Full Weight Additional Instructions or Follow Up instructions: may see PCP in one week Follow-Up Care: [facility] - [facility] No Smoking: If you smoke, Please STOP! Call for help. Follow-up with: EDDY FONG DO [Physician No Access] -
--- NOTE | 2017-04-30 15:12 | DISCHARGE SUMMARY ---
Discharge Summary Admit Date: 04/29/17 Discharge Date: 04/30/17 Discharging Provider: ROCHA Primary Care Provider: [facility] Code Status: Attempt Resuscitation Condition at Discharge: Stable Discharge Disposition: 01 Home, Self Care - DIAGNOSES Admission Diagnoses: 1) Chest pain (2) Alcohol abuse (3) Back muscle spasm (4) Tobacco abuse Discharge Diagnoses with Status of Each Condition: (1) Chest pain pt report he does not have chest pain more. Pt report his previous chest pain was producible, and tender when palpitation, worsen with deep breathing. (2) Alcohol abuse advise pt quit the alcohol, consult with oncology social work, provide the resource to help pt (3) Back muscle spasm chronic stable condition, pain control (4) Tobacco abuse pt state he is not volunteer to void smoking yet. - HPI History of Present Illness: please referral HPI from Dr. Simon's HPI on 04/30/17 as the following. Patient is a 31-year-old gentleman with a past medical history significant for obesity, tobacco and alcohol abuse who presented to the emergency department with a chief complaint of left-sided chest pain and lower back pain. The patient states that he started a new [employer] job about 3 months ago which requires a lot of heavy lifting and bending. He states that he has been having issues with chronic low back pain since starting the job. The patient states that the pain he experienced today however was very different. He states that around 2 PM today while he was lifting a cement block he had a sudden onset of left-sided chest pain as well as lower back pain which she states started around the same time. He states that the left-sided chest pain was 9 out of 10 , it was sharp and non-radiating. The patient states it was localized on the left side of his chest. He states that he has some associated nausea but no vomiting and no diaphoresis. The patient denied having any shortness of air, fevers, chills but does admit to some mild cough. The patient states that the chest pain is made worse with deep breathing, coughing and with having a bowel movement. The patient stated that the pain did improve after he received aspirin and morphine in the emergency department the pain was down to a 6 out of 10 when I saw him. The patient also admits to having diarrhea for the last 2 days he states that he has had loose stools but is only having 2 bowel movements a day. The patient also states that he has been cutting down on alcohol use over the last 2 weeks. He states that he was previously drinking a 12 pack of beer a night but has cut down to 124 ounce beer a night. He states that with cutting back on the alcohol he has noticed that he has had shakes. He does admit to having some shakes today. He also admits to having a headache. He otherwise denies any blurred vision, runny nose, sore throat, abdominal pain, muscle aches, joint pains, joint swelling, lower extremity swelling, orthopnea, PND, urinary urgency, urinary frequency, dysuria or focal neurologic deficits. On presentation to the emergency department the patient was afebrile he was however tachycardic with a heart rate of 126 and did become hypertensive while he was in the emergency department. The patient otherwise was not in any respiratory distress. The patient did appear to be quite flushed and shaky. The patient's EKG showed some early repolarization in the anterior leads but otherwise did not reveal any obvious ischemic changes. The patient's initial lab work did reveal a troponin of 0.33 which is mildly abnormal. Patient's lab work otherwise was negative. Dr. Izquierdo spoke with a chief of anesthesiology on-call at [facility] who was unimpressed by the troponin of 0.33. 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 He recommended that the patient be placed in observation at [facility] and have repeat serial troponins and an echocardiogram. If the patient' s troponin became significantly elevated then he would likely need to be transferred to [facility]. The patient was given aspirin and morphine in the emergency department. - HOSPITAL COURSE Hospital Course: pt was admitted last night for chest pain. Pt report he had heavy physical work day on yesterday. He feels chest pain at left anterior chest lateral to middle sternal. Pt report his chest pain is worsening when he deeply breath. Some tenderness appear by palpation. When I assess pt at the morning, he denies any more chest pain. Troponin serial three times are stable, but less than 0.5, are considered negative, although elevated. consulted the [facility] chief of anesthesiology on last night as HPI statement. Pt's EKG and ECHO are unremarkable. Pt's HR is 88 at d/c time, vital stable. Pt's initiate elevated HR is ST and Pt request to D/C today "no matter what, I will leave." Pt is advised to follow up PCP and quit his alcohol abuse. 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 - ALLERGIES Allergies/Adverse Reactions: Allergies Allergy/AdvReac Type Severity Reaction Status Date / Time meloxicam Allergy Intermediate Dizziness Verified 04/29/17 18:30 Penicillins Allergy Unknown Verified 04/29/17 18:30 prochlorperazine Allergy Anxiety Verified 04/29/17 18:30 [From Compazine] prochlorperazine edisylate * Allergy Anxiety Verified 04/29/17 18:30 [From Compazine] prochlorperazine maleate * Allergy Anxiety Verified 04/29/17 18:30 [From Compazine] diphenhydramine HCl * AdvReac Anxiety Verified 04/29/17 18:30 [From Benadryl] - MEDICATIONS Home Medications: Ambulatory Orders Medication Instructions Recorded Confirmed HYDROcod/ACETAM 5/325 [Bryant 5/325] 1 - 2 ea PO Q6H PRN #15 tablet 04/30/17 Lorazepam [Ativan] 1 mg PO TID PRN #12 tablet 04/30/17 Promethazine [Phenergan] 25 - 50 mg PO Q6H PRN #10 tab 04/30/17 raNITIdine [Zantac] 150 mg PO BID #30 tablet 04/30/17 - PHYSICAL EXAM AT DISCHARGE General Appearance: positive: No acute distress, Alert. negative: Lethargic Eyes Bilateral: positive: Normal inspection, PERRL, EOMI. negative: No lid inflammation, Conjunctivae nml ENT: positive: ENT inspection nml, Pharynx nml, No signs of dehydration. negative: Purulent nasal drainage, Pharyngeal erythema, Oral lesions Neck: positive: Nml inspection, Thyroid nml, Trachea midline. negative: Thyromegaly, Lymphadenopathy (R), Lymphadenopathy (L), Stiff neck, Carotid bruit , Swelling/bruising, Tracheal deviation Respiratory: positive: Chest non-tender, No respiratory distress, Breath sounds nml. negative: Wheezes, Rales, Rhonchi Cardiovascular: positive: Regular rate & rhythm, No murmur, No gallop. negative : Tachycardia, Bradycardia, Systolic murmur, Diastolic murmur Peripheral Pulses: negative: 2+ Abdomen: positive: Non-tender, No organomegaly, Nml bowel sounds, No distention. negative: Tenderness, Guarding, Rebound Back: positive: Nml inspection. negative: CVA tenderness (R), CVA tenderness (L ) Skin: positive: Color nml, No rash, Warm, Dry. negative: Cyanosis, Diaphoresis , Skin rash Extremities: positive: Non-tender, Full ROM, Nml appearance. negative: Calf tenderness, Pato's sign/cords Neurologic/Psychiatric: positive: Oriented x3, Motor nml, Sensation nml, Mood/ affect nml. negative: Weakness, Sensory loss, Facial droop, Slurred/abnml speech, Depressed mood/affect - LABS Result Diagrams: 04/29/17 19:48 04/30/17 08:10 - FOLLOW UP Follow Up: december follow up PCP in one week - TIME SPENT Time Spent in Discharge (Minutes): 40
[2017-04-30] MEDS ORDERED: ATORVASTATIN 40 MG TABLET PO SCH (21:00)
[2017-05-01] MEDS ORDERED: METOPROLOL TARTRATE 50 MG TABLET PO SCH (21:00)
== END 2017-04-30 12:05 | disposition home or self-care (01) ==
LOC: EDUNIT# → ED 18:26 → OBS 21:01
PROVIDERS: ADMIT Internal Medicine; ATTEND Nurse Practitioner Gerontology
DX: R07.9 Chest pain, unspecified (principal); F10.10 Alcohol abuse, uncomplicated; M62.830 Muscle spasm of back; E66.9 Obesity, unspecified; Z68.34 Body mass index [BMI] 34.0-34.9, adult; J45.909 Unspecified asthma, uncomplicated; F17.210 Nicotine dependence, cigarettes, uncomplicated; E86.0 Dehydration
CPT/HCPCS: 36415; 71275; 80053; 80061; 80306; 80320; 81001; 81003; 83690; 83880; 84484; 85025; 87086; 93005; 93306; 96361; 96365; 96375; 96376; 99284; 99285

== ENCOUNTER 2017-05-07 09:11 | Emergency (ER) | payer MEDICAID ==
[2017-05-07] MEDS ORDERED: MULTIVITAMIN 10 ML in SODIUM CHLORIDE 0.9% 1,000 ML IV STA (10:45)
[2017-05-07] MEDS ORDERED: MAGNESIUM SULFATE 2 GRAM 50 ML IV STA (10:45)
[2017-05-07] MEDS ORDERED: LORazepam 2 MG/ML SYRINGE IVP STA ×2 (10:45→11:58)
[2017-05-07] MEDS ORDERED: THIAMINE INJ 100 MG, FOLIC ACID INJ 1 MG in SODIUM CHLORIDE 0.9% 100ML 100 ML IV STA (10:45)
--- NOTE | 2017-05-07 10:47 | ED Physician Documentation ---
History of Present Illness - Stated complaint Stated Complaint: SHAKEY,ANXIOUS - Chief complaint Chief Complaint: General - History obtained from History obtained from: Patient - History of Present Illness Timing: How many weeks ago (4) - Additonal information Additional information: 31-year-old male with a prior alcohol use of 12 beers per day has cut down to 1 beer per day and continues to have shakes and anxiety. He is not able to sleep at night with ruminations. 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 The patient indicates that the ruminations are keeping him from falling asleep at night and he has not used much of anything for sleep previously. The patient has had a recent admission to the hospital when he presented to the emergency department with shakes and was found to have a mildly elevated troponin. The troponin remained stable he remained in in alcohol withdrawal and signed out AGAINST MEDICAL ADVICE. Review of Systems Constitutional: reports: Myalgias, Fatigue, Sweats. denies: Fever Eyes: denies: Decreased vision Ears: denies: Ear pain Nose: denies: Rhinorrhea / runny nose, Congestion Throat: denies: Sore throat Cardiac: denies: Chest pain / pressure, Palpitations Respiratory: denies: Dyspnea, Cough GI: reports: Abdominal Pain, Nausea, Vomiting : denies: Dysuria, Frequency Skin: denies: Rash Musculoskeletal: reports: Back pain. denies: Neck pain, Extremity pain Neurologic: denies: Generalized weakness, Focal weakness, Numbness PD PAST MEDICAL HISTORY - Past Medical History Cardiovascular: None Respiratory: Asthma Neuro: None Endocrine/Autoimmune: None GI: Pancreatitis : None HEENT: None Psych: ADD/ADHD Musculoskeletal: Chronic back pain Derm: None - Past Surgical History Past Surgical History: Yes HEENT: Tonsil/Adenoidectomy - Present Medications Home Medications: Ambulatory Orders Medication Instructions Recorded Confirmed HYDROcod/ACETAM 5/325 [[place] 5/325] 1 - 2 ea PO Q6H PRN #15 tablet 04/30/1701/16 Lorazepam [Ativan] 1 mg PO TID PRN #12 tablet 04/30/17 05/07/17 Promethazine [Phenergan] 25 - 50 mg PO Q6H PRN #10 tab 04/30/17 05/07/17 raNITIdine [Zantac] 150 mg PO BID #30 tablet 04/30/17 05/07/17 Lorazepam [Ativan] 1 - 2 mg PO Q6HR PRN #30 tablet 05/07/17 Olanzapine [Zyprexa] 2.5 mg PO QPM #7 tablet 05/07/17 traMADol [Ultram] 50 - 100 mg PO Q6H PRN #20 tablet 05/07/17 - Allergies Allergies/Adverse Reactions: Allergies Allergy/AdvReac Type Severity Reaction Status Date / Time meloxicam Allergy Intermediate Dizziness Verified 05/07/17 09:18 Penicillins Allergy Unknown Verified 05/07/17 09:18 prochlorperazine Allergy Anxiety Verified 05/07/17 09:18 [From Compazine] prochlorperazine edisylate * Allergy Anxiety Verified 05/07/17 09:18 [From Compazine] prochlorperazine maleate * Allergy Anxiety Verified 05/07/17 09:18 [From Compazine] diphenhydramine HCl * AdvReac Anxiety Verified 05/07/17 09:18 [From Benadryl] - Social History Does the pt smoke?: Yes Smoking Status: Current every day smoker Does the pt drink ETOH?: Yes Does the pt have substance abuse?: No - Immunizations Immunizations are current?: Yes Immunizations: TDAP current <10years - POLST Patient has POLST: No POLST Status: Full Code PD ED PE NORMAL - Vitals Vital signs reviewed: Yes (tachy and hypertensive ) - General General: Well developed/nourished, Other - HEENT HEENT: Atraumatic, Other (dry mucous membranes) - Neck Neck: Supple, no meningeal sign, No bony TTP - Cardiac Cardiac: No murmur, Other (tachy ) - Respiratory Respiratory: No respiratory distress, Clear bilaterally - Abdomen Abdomen: Soft, Non tender - Back Back: No CVA TTP, No spinal TTP - Derm Derm: Normal color, Warm and dry, No rash - Extremities Extremities: No deformity, No edema - Neuro Neuro: No motor deficit, No sensory deficit - Psych Psych: Normal mood, Normal affect Results - Vitals Vitals: Vital Signs - 24 hr 05/07/17 05/07/17 05/07/17 09:15 10:32 12:14 Temperature 36.7 C 36.9 C 36.2 C L Heart Rate 117 H 85 95 Respiratory 18 18 18 Rate Blood Pressure 136/101 H 154/83 H 135/84 H O2 Saturation 98 97 99 05/07/17 14:11 Temperature 37.0 C Heart Rate 91 Respiratory 16 Rate Blood Pressure 168/96 H O2 Saturation 100 Oxygen O2 Source Room air - Labs Labs: Laboratory Tests 05/07/17 05/07/17 05/07/17 11:00 11:00 11:00 WBC 7.7 RBC 4.94 Hgb 16.3 Hct 47.2 MCV 95.7 H MCH 33.1 H MCHC 34.6 RDW 13.8 Plt Count 171 MPV 8.1 Neut # 5.4 Lymph # 1.5 [place] # 0.6 Eos # 0.1 Baso # 0.0 Absolute Nucleated RBC 0.00 Nucleated RBCs 0.1 Sodium 136 Potassium 4.1 Chloride 104 Carbon Dioxide 23 Anion Gap 9.0 BUN 8 Creatinine 1.1 Estimated GFR (MDRD) 78 L Glucose 100 Calcium 9.5 Total Bilirubin 0.7 AST 18 ALT 18 Alkaline Phosphatase 85 Troponin I 0.39 Total Protein 7.0 Albumin 4.1 Globulin 2.9 Albumin/Globulin Ratio 1.4 Lipase 35 Ethyl Alcohol < 5.0 PD MEDICAL DECISION MAKING - ED course Complexity details: reviewed old records, reviewed results, re-evaluated patient , considered differential, d/w patient, d/w family ED course: 31 y/o male with alcohol withdrawal symptoms has recently been admitted with iday heart and withdrawal. He continues to work and has not been performing well and continues to have shakes and anxiety. He was prescribed ativan and has been taking 1 mg every 8 hours and he does not feel this is adequate and it does not appear to be adequate. Here in the ED he Is administered a banana bag and intravenous Ativan. He does have hypertension and tachycardia and shakes. He requires first 1 mg and 2 mg intravenously this does help some. He has been continuing to drink some alcohol at night for his pain in his back. In the past he has used some tramadol and this is helped. He also is having some trouble with sleep at night. Departure - Departure Disposition: 01 Home, Self Care Clinical Impression: Back muscle spasm, Dehydration Alcohol withdrawal Qualifiers: Complication of substance-induced condition: with unspecified complication Qualified Code(s): F10.239 - Alcohol dependence with withdrawal, unspecified Insomnia Qualifiers: Insomnia type: unspecified Qualified Code(s): G47.00 - Insomnia, unspecified Instructions: ED Withdrawal Alcohol, ED Dehydration, ED Spasm Back No Trauma, ED Insomnia Follow-Up: [facility] [Provider Group] Prescriptions: Lorazepam [Ativan] 1 - 2 mg PO Q6HR PRN #30 tablet PRN Reason: withdrawal symptoms traMADol [Ultram] 50 - 100 mg PO Q6H PRN #20 tablet PRN Reason: back spasms Olanzapine [Zyprexa] 2.5 mg PO QPM #7 tablet Forms: Activity restrictions
[2017-05-07] MEDS ORDERED: SODIUM CHLORIDE FLUSH 0.9% 10 ML SYRINGE IVP ONE ×2 (10:56→12:09)
[2017-05-07 11:11] LABS: BASOPHILS % (AUTO) 0.4 %; EOSINOPHILS # (AUTO) 0.1 10^3/uL (0.0-0.7); EOSINOPHILS % (AUTO) 1.2 %; HCT - HEMATOCRIT 47.2 % (42.0-52.0); HGB - HEMOGLOBIN 16.3 g/dL (14.0-18.0); LYMPHOCYTES # (AUTO) 1.5 10^3/uL (1.5-3.5); LYMPHOCYTES % (AUTO) 19.8 %; MEAN CORPUSCULAR HEMOGLOBIN 33.1 pg (27.0-31.0); MEAN CORPUSCULAR HGB CONC 34.6 g/dL (32.0-36.0); MEAN CORPUSCULAR VOLUME 95.7 fL (80.0-94.0); MEAN PLATELET VOLUME 8.1 fL (7.4-11.4); MONOCYTES # (AUTO) 0.6 10^3/uL (0.0-1.0); MONOCYTES % (AUTO) 8.3 %; NEUTROPHILS # (AUTO) 5.4 10^3/uL (1.5-6.6); NEUTROPHILS % (AUTO) 70.3 %; NUCLEATED RED BLOOD CELLS AUTO 0.1 /100WBC; RED BLOOD COUNT 4.94 10^6/uL (4.70-6.10); RED CELL DISTRIBUTION WIDTH 13.8 % (12.0-15.0); UNCORRECTED WHITE BLOOD COUNT 7.7 x10^3/uL; WHITE BLOOD COUNT 7.7 x10^3/uL (4.8-10.8)
[2017-05-07] MEDS ORDERED: MAGNESIUM SULFATE 2 GRAM 50 ML IV ONE (11:16)
[2017-05-07] MEDS ORDERED: LORazepam 2 MG/ML SYRINGE ONE ×2 (11:16→12:09)
[2017-05-07 11:25] LABS: ALBUMIN/GLOBULIN RATIO 1.4 (1.0-2.2); BILIRUBIN,TOTAL 0.7 mg/dL (0.2-1.0); BUN - BLOOD UREA NITROGEN 8 mg/dL (6-20); CALCIUM 9.5 mg/dL (8.5-10.3); CARBON DIOXIDE - CO2 23 mmol/L (21-32); CHLORIDE 104 mmol/L (101-111); CREATININE 1.1 mg/dL (0.6-1.2); GFR - MDRD 78 (>89); GLUCOSE 100 mg/dL (70-100); LIPASE 35 U/L (22-51); POTASSIUM 4.1 mmol/L (3.5-5.0); SODIUM 136 mmol/L (135-145)
[2017-05-07 14:11] VITALS: BP 168/96
== END 2017-05-07 14:46 | disposition home or self-care (01) ==
LOC: ED 09:11
DX: M62.830 Muscle spasm of back (principal); E86.0 Dehydration; F10.239 Alcohol dependence with withdrawal, unspecified; F17.200 Nicotine dependence, unspecified, uncomplicated
CPT/HCPCS: 36415; 80053; 80320; 83690; 84484; 85025; 96365; 96366; 96375; 96376; 99283; 99284; J2060; J3411

== ENCOUNTER 2017-05-17 11:03 | Emergency (ER) | payer MEDICAID ==
[2017-05-17 12:22] LABS: BASOPHILS # (AUTO) 0.1 10^3/uL (0.0-0.1); BASOPHILS % (AUTO) 0.6 %; EOSINOPHILS # (AUTO) 0.1 10^3/uL (0.0-0.7); EOSINOPHILS % (AUTO) 0.6 %; HCT - HEMATOCRIT 52.5 % (42.0-52.0); HGB - HEMOGLOBIN 17.7 g/dL (14.0-18.0); LYMPHOCYTES # (AUTO) 2.2 10^3/uL (1.5-3.5); LYMPHOCYTES % (AUTO) 16.3 %; MEAN CORPUSCULAR HEMOGLOBIN 32.1 pg (27.0-31.0); MEAN CORPUSCULAR HGB CONC 33.6 g/dL (32.0-36.0); MEAN CORPUSCULAR VOLUME 95.6 fL (80.0-94.0); MEAN PLATELET VOLUME 8.1 fL (7.4-11.4); MONOCYTES % (AUTO) 7.2 %; NEUTROPHILS % (AUTO) 75.3 %; RED CELL DISTRIBUTION WIDTH 13.5 % (12.0-15.0); UNCORRECTED WHITE BLOOD COUNT 13.2 x10^3/uL; WHITE BLOOD COUNT 13.2 x10^3/uL (4.8-10.8)
[2017-05-17 12:23] LABS: ALBUMIN/GLOBULIN RATIO 1.5 (1.0-2.2); BILIRUBIN,TOTAL 0.6 mg/dL (0.2-1.0); CALCIUM 9.9 mg/dL (8.5-10.3); POTASSIUM 4.1 mmol/L (3.5-5.0); TOTAL PROTEIN 8.4 g/dL (6.7-8.2)
--- NOTE | 2017-05-17 12:26 | ED Physician Documentation ---
PD HPI CHEST PAIN - Stated complaint Stated Complaint: CHEST PAIN,RAPID HR - Chief complaint Chief Complaint: General - History obtained from History obtained from: Patient - History of Present Illness Timing - onset: How many days ago (1-2) Timing - onset during: Light activity (he feels anxious and heart going fast. He had been drinking 12pack beer daily for past month or so (had been sober 1 1/ 2 months prior, he says) and using that to help with tremors. He had not drank for 1-2 days and having more tremors, and then drank some [employer] and says it did not help the shakiness. He says it is from neck muscle spasm that he gets the shakiness, and prior Dx with torticollis. He says he had tried some muscle relaxants and meds in [place], but had moved here couple months ago. He is homeless here on [employer].) Timing - duration: Days Timing - details: Gradual onset, Still present, Waxing and waning Quality: Tightness (not having pain per se, just feeling anxious and heart going fast.) Location: Substernal Worsened by: No: Movement, Palpation Associated symptoms: Palpitations Similar symptoms before: Diagnosis (neck muscle spasms. He says he had been told that his symptoms come from alcohol use and withdrawal but he does not feel that is the cause.) Recently seen: Emergency Dept, Admitted (for chest pain and had abnormal ECG and Troponin but repeat tests remained at same level, so felt not an acute event.) Review of Systems Constitutional: reports: Myalgias. denies: Fever, Chills Nose: denies: Rhinorrhea / runny nose, Congestion Throat: denies: Sore throat Cardiac: reports: Palpitations (feeling like heart is going fast the past 1-2 days) Respiratory: denies: Dyspnea, Cough GI: reports: Nausea. denies: Abdominal Pain, Vomiting, Diarrhea : denies: Dysuria, Frequency Skin: denies: Rash, Lesions Musculoskeletal: reports: Neck pain (for 4-6 months, left side lower neck with muscle spasms.) Neurologic: denies: Focal weakness, Numbness Psychiatric: reports: Anxiety. denies: Depressed, Suicidal Endocrine: denies: Weight loss, Easy bruising / bleeding Immunocompromised: denies: Immunocompromised PD PAST MEDICAL HISTORY - Past Medical History Cardiovascular: None Respiratory: Asthma Neuro: None Endocrine/Autoimmune: None GI: Pancreatitis : None HEENT: None Psych: ADD/ADHD Musculoskeletal: Chronic back pain Derm: None - Past Surgical History Past Surgical History: Yes HEENT: Tonsil/Adenoidectomy - Present Medications Home Medications: Ambulatory Orders Medication Instructions Recorded Confirmed HYDROcod/ACETAM 5/325 [[place] 5/325] 1 - 2 ea PO Q6H PRN #15 tablet 04/30/1701/16 Lorazepam [Ativan] 1 mg PO TID PRN #12 tablet 04/30/17 05/07/17 Promethazine [Phenergan] 25 - 50 mg PO Q6H PRN #10 tab 04/30/17 05/07/17 raNITIdine [Zantac] 150 mg PO BID #30 tablet 04/30/17 05/07/17 Lorazepam [Ativan] 1 - 2 mg PO Q6HR PRN #30 tablet 05/07/17 Olanzapine [Zyprexa] 2.5 mg PO QPM #7 tablet 05/07/17 traMADol [Ultram] 50 - 100 mg PO Q6H PRN #20 tablet 05/07/17 Diazepam 5 mg PO TID PRN #20 tablet 05/17/17 Famotidine [Pepcid] 20 mg PO ONCE #30 tablet 05/17/17 Naproxen 375 mg PO BID #20 tablet 05/17/17 Ondansetron HCl [Zofran] 4 mg PO Q6H PRN #20 tablet 05/17/17 cloNIDine [Catapres] 0.1 mg PO BID #14 tablet 05/17/17 - Allergies Allergies/Adverse Reactions: Allergies Allergy/AdvReac Type Severity Reaction Status Date / Time meloxicam Allergy Intermediate Dizziness Verified 05/07/17 09:18 Penicillins Allergy Unknown Verified 05/07/17 09:18 prochlorperazine Allergy Anxiety Verified 05/07/17 09:18 [From Compazine] prochlorperazine edisylate * Allergy Anxiety Verified 05/07/17 09:18 [From Compazine] prochlorperazine maleate * Allergy Anxiety Verified 05/07/17 09:18 [From Compazine] diphenhydramine HCl * AdvReac Anxiety Verified 05/07/17 09:18 [From Benadryl] - Social History Does the pt smoke?: Yes Smoking Status: Current every day smoker Does the pt drink ETOH?: Yes Does the pt have substance abuse?: No - Immunizations Immunizations are current?: Yes Immunizations: TDAP current <10years - POLST Patient has POLST: No POLST Status: Full Code PD ED PE NORMAL - Vitals Vital signs reviewed: Yes - General General: Alert and oriented X 3, Well developed/nourished, Other (seems somewhat anxious. ) - HEENT HEENT: Ears normal, Moist mucous membranes, Pharynx benign - Neck Neck: Supple, no meningeal sign, No adenopathy, Other (has good ROM of the neck without stiffness. There is muscle tenderness left lower trapezius without rash nor redness. ) - Cardiac Cardiac: RRR, No murmur - Respiratory Respiratory: Clear bilaterally - Abdomen Abdomen: Soft, Non tender - Back Back: No CVA TTP - Derm Derm: Normal color, Warm and dry - Extremities Extremities: No deformity, No tenderness to palpate, Normal ROM s pain, Other ( some mild general arm/hand shakiness with rest and intention. ) - Neuro Neuro: Alert and oriented X 3, No motor deficit, No sensory deficit, Normal speech - Psych Psych: Normal mood, Normal affect Results - Vitals Vitals: Vital Signs - 24 hr 05/17/17 05/17/17 11:09 14:35 Temperature 36.4 C L 36.8 C Heart Rate 114 H 90 Respiratory 18 20 Rate Blood Pressure 152/105 H 121/83 H O2 Saturation 100 97 Oxygen O2 Source Room air - EKG (time done) on presentation Rhythm: Sinus tachycardia [place]: Normal Ischemia: ST elevation c/w repol, T wave inversion (anterior leads), Non specific changes Compare to prior EKG: Unchanged from prior EKG - Labs Labs: Laboratory Tests 05/17/17 05/17/17 05/17/17 11:59 11:59 11:59 WBC 13.2 H RBC 5.50 Hgb 17.7 Hct 52.5 H MCV 95.6 H MCH 32.1 H MCHC 33.6 RDW 13.5 Plt Count 255 MPV 8.1 Neut # 10.0 H Lymph # 2.2 [place] # 1.0 Eos # 0.1 Baso # 0.1 Absolute Nucleated RBC 0.00 Nucleated RBCs 0.0 Sodium 135 Potassium 4.1 Chloride 101 Carbon Dioxide 19 L Anion Gap 15.0 H BUN 6 Creatinine 1.0 Estimated GFR (MDRD) 87 L Glucose 104 H Calcium 9.9 Total Bilirubin 0.6 AST 25 ALT 21 Alkaline Phosphatase 96 Total Creatine Kinase Troponin I 0.38 Total Protein 8.4 H Albumin 5.0 Globulin 3.4 Albumin/Globulin Ratio 1.5 Lipase 30 05/17/17 13:16 WBC RBC Hgb Hct MCV MCH MCHC RDW Plt Count MPV Neut # Lymph # [place] # Eos # Baso # Absolute Nucleated RBC Nucleated RBCs Sodium Potassium Chloride Carbon Dioxide Anion Gap BUN Creatinine Estimated GFR (MDRD) Glucose Calcium Total Bilirubin AST ALT Alkaline Phosphatase Total Creatine Kinase 200 Troponin I Total Protein Albumin Globulin Albumin/Globulin Ratio Lipase PD MEDICAL DECISION MAKING - ED course Complexity details: reviewed results (his ECG and Troponin are abnormal but are baseline compared to recent labs. ), considered differential (He says he is having neck muscle tremor and not related to withdrawal, and nurse talked with his mother when she called (at pateint request) and she feels it is muscle spasms. He does seem to have some general mild shakiness and says he has been drinking 12pack the past month or so, and had not drank for 1-2 days. I did do muscle trigger injection at left trapezius with Kenalog and Marcaine. See if that will help. He says he needs Botox injection (primary care advise when he was in [place] - had not seen Neurologist, per patient). I told him he would need to get primary care then referral to Neurology, though primary care could aroder some PT and other treatments that may be useful instead. The mild shakiness, fast heart rate and elevated BP would suggest some withdrawal. He does not appear ill otherwise. ), d/w patient Departure - Departure Disposition: 01 Home, Self Care Clinical Impression: Muscle spasms of neck, Tachycardia High blood pressure Qualifiers: Hypertension type: unspecified Qualified Code(s): I10 - Essential (primary) hypertension Condition: Stable Record reviewed to determine appropriate education?: Yes Instructions: ED Spasm Muscle, ED Spasm Back No Trauma Follow-Up: [facility] [Provider Group] Prescriptions: cloNIDine [Catapres] 0.1 mg PO BID #14 tablet Diazepam 5 mg PO TID PRN #20 tablet PRN Reason: Spasms Naproxen 375 mg PO BID #20 tablet Famotidine [Pepcid] 20 mg PO ONCE #30 tablet Ondansetron HCl [Zofran] 4 mg PO Q6H PRN #20 tablet PRN Reason: Nausea / Vomiting Comments: Use of diazepam 2-3 times daily for muscle spasms and tremors. Use famotidine daily for the next month to help with stomach so it does not get irritated. Use naproxen twice daily as needed for pain. Clonidine as directed to help with spasms and also with blood pressure. Follow-up with [facility], call for an appointment. You need to establish a primary care in order to then get referrals for neurologists or other specialist. They may also try some physical therapy to see if it helps with the neck too. Discharge Date/Time: 05/17/17 14:35
[2017-05-17] MEDS ORDERED: FAMOTIDINE 20 MG TABLET PO STA (12:45)
[2017-05-17] MEDS ORDERED: diazePAM 5 MG TABLET PO STA (12:45)
[2017-05-17] MEDS ORDERED: TRIAMCINOLONE 40 MG/ML VIAL IM STA (12:45)
[2017-05-17] MEDS ORDERED: IBUPROFEN 600 MG TABLET PO STA (12:45)
[2017-05-17] MEDS ORDERED: BUPIVACAINE 0.5% PF 30 ML VIAL SUBQ STA (12:45)
[2017-05-17] MEDS ORDERED: diazePAM 5 MG TABLET PO ONE (13:02)
[2017-05-17] MEDS ORDERED: FAMOTIDINE 20 MG TABLET ONE (13:02)
[2017-05-17] MEDS ORDERED: IBUPROFEN 600 MG TABLET PO ONE (13:03)
[2017-05-17] MEDS ORDERED: BUPIVACAINE 0.5% PF 30 ML VIAL ONE (13:03)
[2017-05-17] MEDS ORDERED: TRIAMCINOLONE 40 MG/ML VIAL ONE (13:03)
[2017-05-17] MEDS ORDERED: ONDANSETRON ODT 4 MG TABLET TL STA (13:13)
[2017-05-17] MEDS ORDERED: ONDANSETRON ODT 4 MG TABLET ONE (13:21)
[2017-05-17 14:36] VITALS: BP 121/83
== END 2017-05-17 14:35 | disposition home or self-care (01) ==
LOC: ED 11:03
DX: M62.838 Other muscle spasm (principal); R00.0 Tachycardia, unspecified; I10 Essential (primary) hypertension; J45.909 Unspecified asthma, uncomplicated; F17.200 Nicotine dependence, unspecified, uncomplicated
CPT/HCPCS: 20552; 36415; 80053; 82550; 83690; 84484; 85025; 93005; 99282; 99284; A9270; Q0162

== ENCOUNTER 2017-06-03 20:24 | Emergency (ER) | payer MEDICAID ==
[2017-06-03 21:01] LABS: BASOPHILS # (AUTO) 0.1 10^3/uL (0.0-0.1); BASOPHILS % (AUTO) 0.7 %; EOSINOPHILS % (AUTO) 0.2 %; HCT - HEMATOCRIT 50.4 % (42.0-52.0); HGB - HEMOGLOBIN 16.8 g/dL (14.0-18.0); LYMPHOCYTES # (AUTO) 2.1 10^3/uL (1.5-3.5); LYMPHOCYTES % (AUTO) 13.9 %; MEAN CORPUSCULAR HEMOGLOBIN 32.4 pg (27.0-31.0); MEAN CORPUSCULAR HGB CONC 33.4 g/dL (32.0-36.0); MEAN CORPUSCULAR VOLUME 96.9 fL (80.0-94.0); MEAN PLATELET VOLUME 7.7 fL (7.4-11.4); MONOCYTES # (AUTO) 1.3 10^3/uL (0.0-1.0); MONOCYTES % (AUTO) 8.6 %; NEUTROPHILS # (AUTO) 11.4 10^3/uL (1.5-6.6); NEUTROPHILS % (AUTO) 76.6 %; NUCLEATED RED BLOOD CELLS AUTO 0.1 /100WBC; RED CELL DISTRIBUTION WIDTH 13.5 % (12.0-15.0); UNCORRECTED WHITE BLOOD COUNT 14.8 x10^3/uL; WHITE BLOOD COUNT 14.8 x10^3/uL (4.8-10.8)
[2017-06-03] MEDS ORDERED: LORazepam 2 MG/ML SYRINGE IVP STA (21:04)
[2017-06-03] MEDS ORDERED: LORazepam 2 MG/ML SYRINGE ONE (21:10)
[2017-06-03 21:25] LABS: SALICYLATE < 6.0 mg/dL
[2017-06-03 21:33] LABS: ACETAMINOPHEN < 10 ug/mL (10-30)
[2017-06-03 21:34] LABS: ALBUMIN/GLOBULIN RATIO 1.6 (1.0-2.2); BILIRUBIN,TOTAL 1.6 mg/dL (0.2-1.0); CREATININE 1.3 mg/dL (0.6-1.2); POTASSIUM 3.9 mmol/L (3.5-5.0); TOTAL PROTEIN 7.8 g/dL (6.7-8.2)
[2017-06-03] MEDS ORDERED: SODIUM CHLORIDE 0.9% 1,000 ML IV ONE (21:42)
[2017-06-03] MEDS ORDERED: guaiFENesin/CODEINE 5 ML UDC PO STA (22:01)
[2017-06-03] MEDS ORDERED: ONDANSETRON 4 MG/2 ML VIAL IVP STA ×2 (22:01→23:32)
[2017-06-03] MEDS ORDERED: AZITHROMYCIN INJ 500 MG in SODIUM CHLORIDE 0.9% 250 ML IV STA (22:02)
--- NOTE | 2017-06-03 22:03 | XRAY Preliminary Report ---
Exam: XR Chest 2 View PA/LAT IMPRESSION: Normal 2-view chest radiography. [facility] SITE ID: [id number]
--- NOTE | 2017-06-03 22:05 | XRAY Report ---
EXAM: CHEST RADIOGRAPHY EXAM DATE: 06/03/2017 09:31 PM. CLINICAL HISTORY: Chest Pain. COMPARISON: CT 04/29/2017. TECHNIQUE: 2 views. FINDINGS: Lungs/Pleura: No focal opacities evident. No pleural effusion. No pneumothorax. Normal volumes. Mediastinum: Heart and mediastinal contours are unremarkable. Other: None. IMPRESSION: Normal 2-view chest radiography. [facility] Referring Provider Line: [phone] SITE ID: [id number]
[2017-06-03 22:06] LABS: BILIRUBIN,URINE NEGATIVE (NEGATIVE); UA w/ MICROSCOPIC CHARGE YES
[2017-06-03 22:12] LABS: UR CULTURE IF IND NOT INDICATED; WBC,URINE 0-3 /HPF (0-3)
[2017-06-03] MEDS ORDERED: BENZONATATE 100 MG CAPSULE PO STA (23:32)
[2017-06-03] MEDS ORDERED: IOPAMIDOL-300 100 ML VIAL ONE (23:35)
[2017-06-03] MEDS ORDERED: BENZONATATE 100 MG CAPSULE PO ONE (23:42)
[2017-06-03] MEDS ORDERED: ONDANSETRON 4 MG/2 ML VIAL ONE (23:42)
[2017-06-03] MEDS ORDERED: IOPAMIDOL-300 100 ML VIAL IVP ONE (23:58)
--- NOTE | 2017-06-04 01:46 | CT Preliminary Report ---
Exam: CT Chest Angio (PE) IMPRESSION: 1. No pulmonary embolism or acute air space disease. 2. Fatty liver. [facility] SITE ID: [id number]
--- NOTE | 2017-06-04 01:49 | CT Report ---
EXAM: CT ANGIOGRAM CHEST EXAM DATE: 06/04/2017 12:01 AM. CLINICAL HISTORY: Hypoxia, tachycardia elevated dimer. COMPARISON: 04/29/[address] TECHNIQUE: Routine helical imaging was performed through the chest in the pulmonary arterial phase. I V Contrast: 80 mL Isovue 300. Reconstructions: Coronal 3-D MIP reconstructions.Sagittal and coronal. In accordance with CT protocol optimization, one or more of the following dose reduction techniques w ere utilized for this exam: automated exposure control, adjustment of mA and/or KV based on patient s ize, or use of iterative reconstructive technique. FINDINGS: Pulmonary Arteries: Diagnostic quality: Adequate through the segmental arteries. No evidence for acute or chronic pulmona ry emboli. RV/LV is within normal limits. There is no interventricular septal bowing. There is no reflux of cont rast material in the IVC. Lungs/Pleura: No consolidation, nodules, or edema. No effusions or pneumothorax. Mediastinum: Normal. No cardiac enlargement or adenopathy. Thoracic Aorta: Unremarkable. Upper Abdomen: Decreased liver attenuation. The visualized upper abdomen is otherwise unremarkable. Other: None. IMPRESSION: 1. No pulmonary embolism or acute air space disease. 2. Fatty liver. [facility] Referring Provider Line: [phone] SITE ID: [id number]
--- NOTE | 2017-06-04 02:08 | ED Physician Documentation ---
PD HPI DYSPNEA - Stated complaint Stated Complaint: CHEST PX - Chief complaint Chief Complaint: Resp - History obtained from History obtained from: Patient - History of Present Illness Timing - onset: How many weeks ago (2) Timing - details: Gradual onset, Still present Inciting event(s): URI Improved by: O2, Inhaler/neb Associated symptoms: Cough, Wheezing, Chest pain / discomfort, Anxiety Similar symptoms before: Work up / diagnostics, Treatment Recently seen: Not recently seen - Additional information Additional information: Patient is a 32 year old male with a history of persistent tachycardia and torticollis who is presenting to the emergency department for chest pain and persistent cough. Patient states that it has been going on for the last few days. patient states that he is homeless and his symptoms have been becoming progressively worse. Review of Systems Constitutional: denies: Fever, Chills Eyes: denies: Loss of vision, Decreased vision Ears: denies: Ear pain, Drainage/discharge Nose: denies: Congestion, Epistaxis Throat: reports: Sore throat Cardiac: reports: Chest pain / pressure, Palpitations Respiratory: reports: Dyspnea, Cough, Wheezing GI: reports: Nausea. denies: Abdominal Pain, Vomiting, Constipation, Diarrhea : denies: Dysuria, Frequency, Hesitancy Skin: reports: Rash Musculoskeletal: denies: Neck pain, Extremity pain Neurologic: denies: Generalized weakness, Focal weakness, Numbness, Difficulty speaking, Headache, Head injury Psychiatric: denies: Depressed, Suicidal Immunocompromised: denies: Immunocompromised PD PAST MEDICAL HISTORY - Past Medical History Past Medical History: Yes Cardiovascular: None Respiratory: Asthma Neuro: None Endocrine/Autoimmune: None GI: Pancreatitis : None HEENT: None Psych: ADD/ADHD Musculoskeletal: Chronic back pain Derm: None - Past Surgical History Past Surgical History: Yes HEENT: Tonsil/Adenoidectomy - Present Medications Home Medications: Ambulatory Orders Medication Instructions Recorded Confirmed HYDROcod/ACETAM 5/325 [[place] 5/325] 1 - 2 ea PO Q6H PRN #15 tablet 04/30/1701/16 Lorazepam [Ativan] 1 mg PO TID PRN #12 tablet 04/30/17 05/07/17 Promethazine [Phenergan] 25 - 50 mg PO Q6H PRN #10 tab 04/30/17 05/07/17 raNITIdine [Zantac] 150 mg PO BID #30 tablet 04/30/17 05/07/17 Lorazepam [Ativan] 1 - 2 mg PO Q6HR PRN #30 tablet 05/07/17 Olanzapine [Zyprexa] 2.5 mg PO QPM #7 tablet 05/07/17 traMADol [Ultram] 50 - 100 mg PO Q6H PRN #20 tablet 05/07/17 Diazepam 5 mg PO TID PRN #20 tablet 05/17/17 Famotidine [Pepcid] 20 mg PO ONCE #30 tablet 05/17/17 Naproxen 375 mg PO BID #20 tablet 05/17/17 Ondansetron HCl [Zofran] 4 mg PO Q6H PRN #20 tablet 05/17/17 cloNIDine [Catapres] 0.1 mg PO BID #14 tablet 05/17/17 Azithromycin 250 mg PO DAILY #4 tablet 06/04/17 Benzonatate [Tessalon Perle] 100 mg PO Q8HR #20 capsule 06/04/17 Codeine Phosphate/Guaifenesin 10 ml PO TID #120 ml 06/04/17 [Guaifen-Codeine 200-20 mg/10Ml] predniSONE [Deltasone] 60 mg PO DAILY 5 Days tablet 06/04/17 - Allergies Allergies/Adverse Reactions: Allergies Allergy/AdvReac Type Severity Reaction Status Date / Time meloxicam Allergy Intermediate Dizziness Verified 05/07/17 09:18 Penicillins Allergy Unknown Verified 05/07/17 09:18 prochlorperazine Allergy Anxiety Verified 05/07/17 09:18 [From Compazine] prochlorperazine edisylate * Allergy Anxiety Verified 05/07/17 09:18 [From Compazine] prochlorperazine maleate * Allergy Anxiety Verified 05/07/17 09:18 [From Compazine] diphenhydramine HCl * AdvReac Anxiety Verified 05/07/17 09:18 [From Benadryl] - Social History Does the pt smoke?: Yes Smoking Status: Current every day smoker Does the pt drink ETOH?: Yes Does the pt have substance abuse?: No - Immunizations Immunizations are current?: Yes Immunizations: TDAP current <10years - POLST Patient has POLST: No POLST Status: Full Code PD ED PE NORMAL - Vitals Vital signs reviewed: Yes (tachycardic, ) - General General: Alert and oriented X 3 - HEENT HEENT: Atraumatic, Pharynx benign - Cardiac Cardiac: No murmur - Respiratory Respiratory: Clear bilaterally PD ED PE EXPANDED - General General: Alert, Disheveled, poorly kept - HEENT HEENT: PERRL, Dry mucous membranes, Dental decay - Cardiac Cardiac: Tachy - Respiratory Respiratory: Clear to ausultation priscilla - Abdomen Abdomen: No: Distended, Tender to palpation, Rebound, Guarding - Extremities Extremities: No: Pedal edema bilateral Results - Vitals Vitals: Vital Signs - 24 hr 06/03/17 06/03/17 06/03/17 20:29 21:10 21:48 Temperature 37.1 C Heart Rate 139 H 135 H 146 H Respiratory 18 20 20 Rate Blood Pressure 125/87 H 118/75 116/80 O2 Saturation 97 98 96 06/03/17 06/04/17 06/04/17 22:44 00:00 01:08 Temperature Heart Rate 125 H 118 H 116 H Respiratory 20 20 18 Rate Blood Pressure 111/64 108/63 113/65 O2 Saturation 97 95 95 Oxygen O2 Source Room air - EKG (time done) 2041 Rate: Rate (enter#) (133) Rhythm: Sinus tachycardia [place]: Normal Intervals: Normal HI Ischemia: ST elevation c/w repol Compare to prior EKG: Unchanged from prior EKG - Labs Labs: Laboratory Tests 06/03/17 06/03/17 06/03/17 20:53 20:53 20:53 WBC 14.8 H RBC 5.20 Hgb 16.8 Hct 50.4 MCV 96.9 H MCH 32.4 H MCHC 33.4 RDW 13.5 Plt Count 171 MPV 7.7 Neut # 11.4 H Lymph # 2.1 [place] # 1.3 H Eos # 0.0 Baso # 0.1 Absolute Nucleated RBC 0.01 Nucleated RBC % 0.1 D-Dimer Sodium 131 L Potassium 3.9 Chloride 95 L Carbon Dioxide 15 L Anion Gap 21.0 H BUN 18 Creatinine 1.3 H Estimated GFR (MDRD) 64 L Glucose 76 Calcium 9.0 Total Bilirubin 1.6 H AST 67 H ALT 63 H Alkaline Phosphatase 86 Troponin I 0.31 Total Protein 7.8 Albumin 4.8 Globulin 3.0 Albumin/Globulin Ratio 1.6 Lipase 130 H TSH Urine Color Urine Clarity Urine pH Ur Specific [place] Urine Protein Urine Glucose (UA) Urine Ketones Urine Occult Blood Urine Nitrite Urine Bilirubin Urine Urobilinogen Ur Leukocyte Esterase Urine RBC Urine WBC Ur Squamous Epith Cells Urine Bacteria Urine Casts Ur Microscopic Review Urine Culture Comments Salicylates Urine Opiates Screen Ur Oxycodone Screen Urine Methadone Screen Ur Propoxyphene Screen Acetaminophen Ur Barbiturates Screen Ur Tricyclics Screen Ur Phencyclidine Scrn Ur Amphetamine Screen U Methamphetamines Scrn U Benzodiazepines Scrn Urine Cocaine Screen U Cannabinoids Screen Ethyl Alcohol 06/03/17 06/03/17 06/03/17 20:53 20:53 20:53 WBC RBC Hgb Hct MCV MCH MCHC RDW Plt Count MPV Neut # Lymph # [place] # Eos # Baso # Absolute Nucleated RBC Nucleated RBC % D-Dimer 371.7 H Sodium Potassium Chloride Carbon Dioxide Anion Gap BUN Creatinine Estimated GFR (MDRD) Glucose Calcium Total Bilirubin AST ALT Alkaline Phosphatase Troponin I Total Protein Albumin Globulin Albumin/Globulin Ratio Lipase TSH 0.71 Urine Color Urine Clarity Urine pH Ur Specific [place] Urine Protein Urine Glucose (UA) Urine Ketones Urine Occult Blood Urine Nitrite Urine Bilirubin Urine Urobilinogen Ur Leukocyte Esterase Urine RBC Urine WBC Ur Squamous Epith Cells Urine Bacteria Urine Casts Ur Microscopic Review Urine Culture Comments Salicylates < 6.0 Urine Opiates Screen Ur Oxycodone Screen Urine Methadone Screen Ur Propoxyphene Screen Acetaminophen < 10 L Ur Barbiturates Screen Ur Tricyclics Screen Ur Phencyclidine Scrn Ur Amphetamine Screen U Methamphetamines Scrn U Benzodiazepines Scrn Urine Cocaine Screen U Cannabinoids Screen Ethyl Alcohol 121.7 06/03/17 21:46 WBC RBC Hgb Hct MCV MCH MCHC RDW Plt Count MPV Neut # Lymph # [place] # Eos # Baso # Absolute Nucleated RBC Nucleated RBC % D-Dimer Sodium Potassium Chloride Carbon Dioxide Anion Gap BUN Creatinine Estimated GFR (MDRD) Glucose Calcium Total Bilirubin AST ALT Alkaline Phosphatase Troponin I Total Protein Albumin Globulin Albumin/Globulin Ratio Lipase TSH Urine Color YELLOW Urine Clarity CLEAR Urine pH 6.0 Ur Specific [place] >=1.030 H Urine Protein 100 H Urine Glucose (UA) NEGATIVE Urine Ketones >=80 H Urine Occult Blood MODERATE H Urine Nitrite NEGATIVE Urine Bilirubin NEGATIVE Urine Urobilinogen 0.2 (NORMAL) Ur Leukocyte Esterase NEGATIVE Urine RBC 0-5 Urine WBC 0-3 Ur Squamous Epith Cells MOD Squamous H Urine Bacteria None Seen Urine Casts 26-50 Hyaline Casts Ur Microscopic Review INDICATED Urine Culture Comments NOT INDICATED Salicylates Urine Opiates Screen NEGATIVE Ur Oxycodone Screen NEGATIVE Urine Methadone Screen NEGATIVE Ur Propoxyphene Screen NEGATIVE Acetaminophen Ur Barbiturates Screen NEGATIVE Ur Tricyclics Screen NEGATIVE Ur Phencyclidine Scrn NEGATIVE Ur Amphetamine Screen NEGATIVE U Methamphetamines Scrn NEGATIVE U Benzodiazepines Scrn POSITIVE H Urine Cocaine Screen NEGATIVE U Cannabinoids Screen POSITIVE H Ethyl Alcohol - Rads (name of study) ct angio Radiology: Final report received (no acute disease process) PD MEDICAL DECISION MAKING - ED course Complexity details: reviewed old records, reviewed results, re-evaluated patient , considered differential, d/w patient ED course: Patient was seen and examined at bedside. IV access was gained. labs were drawn. Patient was started on a fluid bolus. ekg was performed and showed sinus tach but unchanged when compared to previous records. Patient was found to have a leukocytosis and a mildly elevated troponin. Previous records were reviewed and patient's troponin was at baseline. Patient's dimer was elevated and CTa was ordered. Patient was treated with zofran for nausea. Patient's CTa was within normal limits. While patient's vital signs were abnormal they were normal for the patient. Patient has had an echo within the last 6 weeks that was within normal limits. there was no further indication for keeping the patient in the hospital at this time and patient was stable for discharge with outpatient follow up. Departure - Departure Disposition: 01 Home, Self Care Clinical Impression: Pneumonia Condition: Good Instructions: Pneumonia Dc Follow-Up: [facility] [Provider Group] [facility] [Provider Group] Prescriptions: Benzonatate [Tessalon Perle] 100 mg PO Q8HR #20 capsule Azithromycin 250 mg PO DAILY #4 tablet Codeine Phosphate/Guaifenesin [Guaifen-Codeine 200-20 mg/10Ml] 10 ml PO TID # 120 ml predniSONE [Deltasone] 60 mg PO DAILY 5 Days tablet Comments: Your diagnostics today were within normal limit. Your heart remains tachycardic , as it did with your previous visits, but there is no change in your blood work or imaging. You have been prescribed multiple medications for your cough. You should call [facility] to schedule a follow up appointment. You may return to the emergency department if necessary for new, worsening or uncontrollable symptoms.
[2017-06-04 02:47] VITALS: BP 116/80
== END 2017-06-04 02:47 | disposition home or self-care (01) ==
LOC: ED 20:24
DX: J18.9 Pneumonia, unspecified organism (principal); R00.0 Tachycardia, unspecified; J45.909 Unspecified asthma, uncomplicated; Z86.39 Personal history of other endocrine, nutritional and metabolic disease; F17.200 Nicotine dependence, unspecified, uncomplicated
CPT/HCPCS: 36415; 71020; 71275; 80053; 80306; 80307; 80320; 80329; 81001; 83690; 84443; 84484; 85025; 85379; 93005; 96365; 96375; 96376; 99284; A9270; J2060; Q9967; 81003; 87086

== ENCOUNTER 2017-06-05 19:53 | Emergency (ER) | payer MEDICAID ==
[2017-06-05] MEDS: IPRATROPIUM/ALBUTEROL 3 ML NEB INH STA (20:40)
[2017-06-05] MEDS ORDERED: IPRATROPIUM/ALBUTEROL 3 ML NEB INH ONE (20:43)
[2017-06-05 21:06] LABS: BASOPHILS # (AUTO) 0.1 10^3/uL (0.0-0.1); BASOPHILS % (AUTO) 1.3 %; EOSINOPHILS # (AUTO) 0.1 10^3/uL (0.0-0.7); HCT - HEMATOCRIT 42.7 % (42.0-52.0); HGB - HEMOGLOBIN 14.9 g/dL (14.0-18.0); LYMPHOCYTES # (AUTO) 1.6 10^3/uL (1.5-3.5); LYMPHOCYTES % (AUTO) 17.7 %; MEAN CORPUSCULAR HEMOGLOBIN 33.2 pg (27.0-31.0); MEAN CORPUSCULAR HGB CONC 34.8 g/dL (32.0-36.0); MEAN CORPUSCULAR VOLUME 95.4 fL (80.0-94.0); MEAN PLATELET VOLUME 7.7 fL (7.4-11.4); MONOCYTES # (AUTO) 0.7 10^3/uL (0.0-1.0); MONOCYTES % (AUTO) 7.7 %; NEUTROPHILS # (AUTO) 6.6 10^3/uL (1.5-6.6); NEUTROPHILS % (AUTO) 72.3 %; RED BLOOD COUNT 4.47 10^6/uL (4.70-6.10); RED CELL DISTRIBUTION WIDTH 13.3 % (12.0-15.0); UNCORRECTED WHITE BLOOD COUNT 9.1 x10^3/uL; WHITE BLOOD COUNT 9.1 x10^3/uL (4.8-10.8)
[2017-06-05 21:10] LABS: VBG BASE EXCESS -1.7 mmol/L (-2 - +2); VBG OXYGEN SATURATION 98.8 % (60-80); VBG PH 7.453 (7.31-7.41)
[2017-06-05 21:23] LABS: ALBUMIN/GLOBULIN RATIO 1.7 (1.0-2.2); BILIRUBIN,TOTAL 0.8 mg/dL (0.2-1.0); BUN - BLOOD UREA NITROGEN 9 mg/dL (6-20); CALCIUM 9.4 mg/dL (8.5-10.3); CARBON DIOXIDE - CO2 23 mmol/L (21-32); CHLORIDE 98 mmol/L (101-111); CREATININE 0.9 mg/dL (0.6-1.2); GFR - MDRD 98 (>89); GLUCOSE 90 mg/dL (70-100); LIPASE 394 U/L (22-51); POTASSIUM 3.4 mmol/L (3.5-5.0); SODIUM 135 mmol/L (135-145); TOTAL PROTEIN 6.7 g/dL (6.7-8.2)
--- NOTE | 2017-06-05 21:29 | XRAY Preliminary Report ---
Exam: XR Chest 2 View PA/LAT IMPRESSION: Normal 2-view chest radiography. [facility] SITE ID: [id number]
[2017-06-05] MEDS: SODIUM CHLORIDE 0.9% 1,000 ML IV ONE ×2 (21:31→23:00)
--- NOTE | 2017-06-05 21:31 | XRAY Report ---
EXAM: CHEST RADIOGRAPHY EXAM DATE: 06/05/2017 09:17 PM. CLINICAL HISTORY: Fever, cough. COMPARISON: 06/03/2017 chest x-ray. TECHNIQUE: 2 views. FINDINGS: Lungs/Pleura: No focal opacities evident. No pleural effusion. No pneumothorax. Normal volumes. Mediastinum: Heart and mediastinal contours are unremarkable. Other: None. IMPRESSION: Normal 2-view chest radiography. [facility] Referring Provider Line: [phone] SITE ID: [id number]
[2017-06-05] MEDS: ALBUTEROL NEB 2.5 MG/3 ML INH STA (22:50)
[2017-06-05] MEDS ORDERED: methylPREDNISolone SUCCINATE 125 MG/2 ML VIAL ONE (22:52)
[2017-06-05] MEDS: methylPREDNISolone SUCCINATE 125 MG/2 ML VIAL IVP STA (22:54)
[2017-06-05] MEDS ORDERED: ALBUTEROL NEB 2.5 MG/3 ML INH ONE (23:02)
[2017-06-05 23:53] VITALS: BP 134/71
--- NOTE | 2017-06-05 23:59 | ED Physician Documentation ---
PD HPI CHEST PAIN - Stated complaint Stated Complaint: SOA/CP - Chief complaint Chief Complaint: Resp - History obtained from History obtained from: Patient - History of Present Illness Timing - onset: Chronic Timing - onset during: Rest, Light activity Timing - details: Gradual onset, Still present Quality: Pressure, Aching Location: Substernal, Left chest, Right chest Associated symptoms: Shortness of air Similar symptoms before: Work up / diagnostics, Treatment Recently seen: Emergency Dept - Additional information Additional information: Patient is a 32 year old homeless male who is presenting to the emergency department for wheezing and chest pain. Patient has been seen multiple times for similar symptoms and stated that even with the medications he isn't getting much better. Review of Systems Constitutional: denies: Fever, Chills Eyes: denies: Decreased vision, Photophobia Ears: denies: Ear pain, Drainage/discharge Nose: reports: Congestion, Sinus pressure / pain. denies: Rhinorrhea / runny nose Throat: reports: Sore throat Cardiac: reports: Chest pain / pressure, Palpitations Respiratory: reports: Dyspnea, Cough, Wheezing GI: reports: Nausea. denies: Vomiting, Constipation, Diarrhea : reports: Hesitancy Skin: reports: Lesions Musculoskeletal: reports: Neck pain, Back pain Neurologic: reports: Generalized weakness. denies: Focal weakness, Numbness, Difficulty speaking, Syncope, Seizure, Confused, Altered mental status, Head injury, LOC Psychiatric: reports: Anxiety. denies: Depressed Immunocompromised: denies: Immunocompromised PD PAST MEDICAL HISTORY - Past Medical History Cardiovascular: None Respiratory: Asthma Neuro: None Endocrine/Autoimmune: None GI: Pancreatitis : None HEENT: None Psych: ADD/ADHD Musculoskeletal: Chronic back pain Derm: None - Past Surgical History Past Surgical History: Yes HEENT: Tonsil/Adenoidectomy - Present Medications Home Medications: Ambulatory Orders Medication Instructions Recorded Confirmed HYDROcod/ACETAM 5/325 [[place] 5/325] 1 - 2 ea PO Q6H PRN #15 tablet 04/30/1701/16 Lorazepam [Ativan] 1 mg PO TID PRN #12 tablet 04/30/17 05/07/17 Promethazine [Phenergan] 25 - 50 mg PO Q6H PRN #10 tab 04/30/17 05/07/17 raNITIdine [Zantac] 150 mg PO BID #30 tablet 04/30/17 05/07/17 Lorazepam [Ativan] 1 - 2 mg PO Q6HR PRN #30 tablet 05/07/17 Olanzapine [Zyprexa] 2.5 mg PO QPM #7 tablet 05/07/17 traMADol [Ultram] 50 - 100 mg PO Q6H PRN #20 tablet 05/07/17 Diazepam 5 mg PO TID PRN #20 tablet 05/17/17 Famotidine [Pepcid] 20 mg PO ONCE #30 tablet 05/17/17 Naproxen 375 mg PO BID #20 tablet 05/17/17 Ondansetron HCl [Zofran] 4 mg PO Q6H PRN #20 tablet 05/17/17 cloNIDine [Catapres] 0.1 mg PO BID #14 tablet 05/17/17 Azithromycin 250 mg PO DAILY #4 tablet 06/04/17 Benzonatate [Tessalon Perle] 100 mg PO Q8HR #20 capsule 06/04/17 Codeine Phosphate/Guaifenesin 10 ml PO TID #120 ml 06/04/17 [Guaifen-Codeine 200-20 mg/10Ml] Ondansetron Odt [Zofran] 4 mg TL Q6H PRN #14 tablet 06/04/17 predniSONE [Deltasone] 60 mg PO DAILY 5 Days tablet 06/04/17 Albuterol Sulf [Ventolin Hfa 2 puffs INH Q4HR PRN #1 inhaler 06/06/17 Inhaler] - Allergies Allergies/Adverse Reactions: Allergies Allergy/AdvReac Type Severity Reaction Status Date / Time meloxicam Allergy Intermediate Dizziness Verified 05/07/17 09:18 Penicillins Allergy Unknown Verified 05/07/17 09:18 prochlorperazine Allergy Anxiety Verified 05/07/17 09:18 [From Compazine] prochlorperazine edisylate * Allergy Anxiety Verified 05/07/17 09:18 [From Compazine] prochlorperazine maleate * Allergy Anxiety Verified 05/07/17 09:18 [From Compazine] diphenhydramine HCl * AdvReac Anxiety Verified 05/07/17 09:18 [From Benadryl] - Social History Does the pt smoke?: Yes Smoking Status: Current every day smoker Does the pt drink ETOH?: Yes Does the pt have substance abuse?: No - Immunizations Immunizations are current?: Yes Immunizations: TDAP current <10years - POLST Patient has POLST: No POLST Status: Full Code PD ED PE NORMAL - HEENT HEENT: Pharynx benign - Neck Neck: No JVD - Abdomen Abdomen: Soft, Non tender, Non distended - Extremities Extremities: No deformity, No edema - Neuro Neuro: Alert and oriented X 3, No motor deficit, No sensory deficit, Normal speech PD ED PE EXPANDED - General General: Alert, Disheveled, poorly kept, Anxious - HEENT HEENT: Nasal congestion, Dry mucous membranes, Dental decay - Cardiac Cardiac: Tachy, Regular Rhythm - Respiratory Respiratory: Wheezing, Right upper lobe, Left upper lobe - Derm Derm: Pick diaz Results - Vitals Vitals: Vital Signs - 24 hr 06/05/17 06/05/17 06/05/17 19:57 20:40 20:44 Temperature 37.3 C Heart Rate 122 H 111 H 112 H Respiratory 18 16 19 Rate Blood Pressure 146/93 H 144/80 H O2 Saturation 96 97 06/05/17 06/05/17 06/05/17 21:59 22:50 22:52 Temperature 36.9 C Heart Rate 115 H 104 H 110 H Respiratory 19 16 16 Rate Blood Pressure 136/79 H O2 Saturation 94 94 06/05/17 06/05/17 23:34 23:52 Temperature Heart Rate 113 H 110 H Respiratory 18 19 Rate Blood Pressure 126/70 134/71 H O2 Saturation 96 95 Oxygen O2 Source Room air - EKG (time done) 2005 Rate: Rate (enter#) (107) Rhythm: Sinus tachycardia [place]: Normal Intervals: Normal [place] Ischemia: ST elevation c/w repol Compare to prior EKG: Unchanged from prior EKG - Labs Labs: Laboratory Tests 06/05/17 06/05/17 06/05/17 20:55 20:55 20:55 WBC 9.1 RBC 4.47 L Hgb 14.9 Hct 42.7 MCV 95.4 H MCH 33.2 H MCHC 34.8 RDW 13.3 Plt Count 117 L MPV 7.7 Neut # 6.6 Lymph # 1.6 [place] # 0.7 Eos # 0.1 Baso # 0.1 Absolute Nucleated RBC 0.00 Nucleated RBC % 0.0 VBG pH VBG pCO2 VBG pO2 VBG HCO3 VBG Total CO2 VBG O2 Saturation VBG Base Excess Sodium 135 Potassium 3.4 L Chloride 98 L Carbon Dioxide 23 Anion Gap 14.0 H BUN 9 Creatinine 0.9 Estimated GFR (MDRD) 98 Glucose 90 Lactic Acid Calcium 9.4 Total Bilirubin 0.8 AST 68 H ALT 73 H Alkaline Phosphatase 68 Troponin I 0.27 Total Protein 6.7 Albumin 4.2 Globulin 2.5 Albumin/Globulin Ratio 1.7 Lipase 394 H Urine Opiates Screen Ur Oxycodone Screen Urine Methadone Screen Ur Propoxyphene Screen Ur Barbiturates Screen Ur Tricyclics Screen Ur Phencyclidine Scrn Ur Amphetamine Screen U Methamphetamines Scrn U Benzodiazepines Scrn Urine Cocaine Screen U Cannabinoids Screen Ethyl Alcohol Serum Ketones NEGATIVE 06/05/17 06/05/17 06/05/17 20:55 20:55 20:55 WBC RBC Hgb Hct MCV MCH MCHC RDW Plt Count MPV Neut # Lymph # [place] # Eos # Baso # Absolute Nucleated RBC Nucleated RBC % VBG pH 7.453 H VBG pCO2 30.8 L VBG pO2 213.5 H VBG HCO3 21.1 L VBG Total CO2 22.0 L VBG O2 Saturation 98.8 H VBG Base Excess -1.7 Sodium Potassium Chloride Carbon Dioxide Anion Gap BUN Creatinine Estimated GFR (MDRD) Glucose Lactic Acid 2.3 H Calcium Total Bilirubin AST ALT Alkaline Phosphatase Troponin I Total Protein Albumin Globulin Albumin/Globulin Ratio Lipase Urine Opiates Screen Ur Oxycodone Screen Urine Methadone Screen Ur Propoxyphene Screen Ur Barbiturates Screen Ur Tricyclics Screen Ur Phencyclidine Scrn Ur Amphetamine Screen U Methamphetamines Scrn U Benzodiazepines Scrn Urine Cocaine Screen U Cannabinoids Screen Ethyl Alcohol 107.0 Serum Ketones 06/05/17 22:05 WBC RBC Hgb Hct MCV MCH MCHC RDW Plt Count MPV Neut # Lymph # Rock # Eos # Baso # Absolute Nucleated RBC Nucleated RBC % VBG pH VBG pCO2 VBG pO2 VBG HCO3 VBG Total CO2 VBG O2 Saturation VBG Base Excess Sodium Potassium Chloride Carbon Dioxide Anion Gap BUN Creatinine Estimated GFR (MDRD) Glucose Lactic Acid Calcium Total Bilirubin AST ALT Alkaline Phosphatase Troponin I Total Protein Albumin Globulin Albumin/Globulin Ratio Lipase Urine Opiates Screen POSITIVE H Ur Oxycodone Screen NEGATIVE Urine Methadone Screen NEGATIVE Ur Propoxyphene Screen NEGATIVE Ur Barbiturates Screen NEGATIVE Ur Tricyclics Screen NEGATIVE Ur Phencyclidine Scrn NEGATIVE Ur Amphetamine Screen NEGATIVE U Methamphetamines Scrn NEGATIVE U Benzodiazepines Scrn POSITIVE H Urine Cocaine Screen NEGATIVE U Cannabinoids Screen POSITIVE H Ethyl Alcohol Serum Ketones - Rads (name of study) chest x-ray Radiology: Final report received (normal chest x-ray) PD MEDICAL DECISION MAKING - ED course Complexity details: reviewed old records, reviewed results, re-evaluated patient , considered differential, d/w patient ED course: Patient was seen and examined at bedside. IV access was gained. patient was placed on a monitor. ekg was performed which showed sinus tach. patient was started on iv fluids. patient was treated with nebulizer treatments. chest x- ray was performed and showed no abnormalities. Patient's diagnostics were abnormal but not abnormal for the patient. it was actually the lowest HR, and troponin that he has ever had at the hospital. Patient was treated with additional nebulizer treatments and solumedrol. Patient responded well to the therapy. Patient already had recently had negative, echo, CT angio. Patient's wheezing resolved and had appropriate oxygenation on room air. Patient did not required inpatient care at this time and was stable for discharge with outpatient follow up. Departure - Departure Disposition: 01 Home, Self Care Clinical Impression: Bronchitis Condition: Good Instructions: ED Bronchitis Asthmatic Follow-Up: [facility] [Provider Group] Prescriptions: Albuterol Sulf [Ventolin Hfa Inhaler] 2 puffs INH Q4HR PRN #1 inhaler PRN Reason: Wheezing Comments: Your diagnostics today are unchanged from previous visit. your symptoms are likely secondary in nature. the symptoms can last for months at a time, especially if you are living outside and continue smoking. there is nothing that stops it, only to try to help the symptoms. you were recently prescribed various cough medicines and steroids and today you will also be prescribed an inhaler. you should follow up with the clinic for further evaluation and care. Discharge Date/Time: 06/06/17 00:20
== END 2017-06-06 00:20 | disposition home or self-care (01) ==
LOC: ED 19:53
DX: J40 Bronchitis, not specified as acute or chronic (principal); F17.200 Nicotine dependence, unspecified, uncomplicated
CPT/HCPCS: 36415; 51798; 71020; 80053; 80306; 80320; 82009; 82803; 83605; 83690; 84484; 85025; 87040; 93005; 94640; 96361; 96374; 99284

== ENCOUNTER 2017-06-12 19:53 | Emergency (ER) | payer MEDICAID ==
[2017-06-12] MEDS ORDERED: ALBUTEROL NEB 2.5 MG/3 ML INH STA (20:13)
[2017-06-12] MEDS ORDERED: KETOROLAC 60 MG/2 ML VIAL IM STA (20:14)
[2017-06-12] MEDS ORDERED: KETOROLAC 60 MG/2 ML VIAL ONE (20:38)
[2017-06-12] MEDS ORDERED: ALBUTEROL NEB 2.5 MG/3 ML INH ONE (20:57)
--- NOTE | 2017-06-12 21:15 | ED Physician Documentation ---
PD HPI URI - Stated complaint Stated Complaint: COLD SYMPTOMS - Chief complaint Chief Complaint: Heent - History obtained from History obtained from: Patient - History of Present Illness Timing - onset: Chronic Timing details: Gradual onset, Still present Associated symptoms: Chills, Nasal congestion, Rhinorrhea, Sinus pain, Dry cough Similar symptoms before: Work up / diagnostics, Treatment Recently seen: Emergency Dept - Additional information Additional information: Patient is 32 year old homeless male who is presenting to the emergency department for cough, nasal congestion and sinus pressure. Patient has been in the emergency department numerous times for various complaints and all of the work-up have been negative. Patient states that for the last couple of days he has had worsening congestion so he came in for evaluation. Patient states that he has been sleeping outside. Review of Systems Constitutional: reports: Chills. denies: Fever Eyes: denies: Decreased vision, Photophobia Ears: denies: Loss of hearing, Ear pain, Drainage/discharge Nose: reports: Rhinorrhea / runny nose, Congestion, Sinus pressure / pain Throat: denies: Dental pain / toothache, Sore throat Cardiac: reports: Palpitations Respiratory: reports: Cough. denies: Wheezing GI: denies: Nausea, Vomiting : reports: Reviewed and negative Skin: reports: Reviewed and negative Musculoskeletal: reports: Neck pain. denies: Extremity pain, Joint pain Neurologic: denies: Generalized weakness, Focal weakness, Syncope, Seizure, Confused, Altered mental status Psychiatric: reports: Anxiety PD PAST MEDICAL HISTORY - Past Medical History Cardiovascular: None Respiratory: Asthma Neuro: None Endocrine/Autoimmune: None GI: Pancreatitis : None HEENT: None Psych: ADD/ADHD Musculoskeletal: Chronic back pain Derm: None - Past Surgical History Past Surgical History: Yes HEENT: Tonsil/Adenoidectomy - Present Medications Home Medications: Ambulatory Orders Medication Instructions Recorded Confirmed HYDROcod/ACETAM 5/325 [[place] 5/325] 1 - 2 ea PO Q6H PRN #15 tablet 04/30/1701/16 Lorazepam [Ativan] 1 mg PO TID PRN #12 tablet 04/30/17 05/07/17 Promethazine [Phenergan] 25 - 50 mg PO Q6H PRN #10 tab 04/30/17 05/07/17 raNITIdine [Zantac] 150 mg PO BID #30 tablet 04/30/17 05/07/17 Lorazepam [Ativan] 1 - 2 mg PO Q6HR PRN #30 tablet 05/07/17 Olanzapine [Zyprexa] 2.5 mg PO QPM #7 tablet 05/07/17 traMADol [Ultram] 50 - 100 mg PO Q6H PRN #20 tablet 05/07/17 Diazepam 5 mg PO TID PRN #20 tablet 05/17/17 Famotidine [Pepcid] 20 mg PO ONCE #30 tablet 05/17/17 Naproxen 375 mg PO BID #20 tablet 05/17/17 Ondansetron HCl [Zofran] 4 mg PO Q6H PRN #20 tablet 05/17/17 cloNIDine [Catapres] 0.1 mg PO BID #14 tablet 05/17/17 Azithromycin 250 mg PO DAILY #4 tablet 06/04/17 Benzonatate [Tessalon Perle] 100 mg PO Q8HR #20 capsule 06/04/17 Codeine Phosphate/Guaifenesin 10 ml PO TID #120 ml 06/04/17 [Guaifen-Codeine 200-20 mg/10Ml] Ondansetron Odt [Zofran] 4 mg TL Q6H PRN #14 tablet 06/04/17 predniSONE [Deltasone] 60 mg PO DAILY 5 Days tablet 06/04/17 Albuterol Sulf [Ventolin Hfa 2 puffs INH Q4HR PRN #1 inhaler 06/06/17 Inhaler] - Allergies Allergies/Adverse Reactions: Allergies Allergy/AdvReac Type Severity Reaction Status Date / Time meloxicam Allergy Intermediate Dizziness Verified 06/12/17 19:59 Penicillins Allergy Unknown Verified 06/12/17 19:59 prochlorperazine Allergy Anxiety Verified 06/12/17 19:59 [From Compazine] prochlorperazine edisylate * Allergy Anxiety Verified 06/12/17 19:59 [From Compazine] prochlorperazine maleate * Allergy Anxiety Verified 06/12/17 19:59 [From Compazine] diphenhydramine HCl * AdvReac Anxiety Verified 06/12/17 19:59 [From Benadryl] - Social History Does the pt smoke?: Yes Smoking Status: Current every day smoker Does the pt drink ETOH?: Yes ETOH Use: Beer Does the pt have substance abuse?: No Substance Use and Type: Marijuana - Immunizations Immunizations are current?: Yes Immunizations: TDAP current <10years - POLST Patient has POLST: No POLST Status: Full Code PD ED PE NORMAL - General General: Alert and oriented X 3, Well developed/nourished - HEENT HEENT: Atraumatic - Neck Neck: No JVD - Abdomen Abdomen: Soft, Non distended - Extremities Extremities: No deformity, Normal ROM s pain, No edema - Neuro Neuro: Alert and oriented X 3, No motor deficit, No sensory deficit, Normal speech - Psych Psych: Normal mood, Normal affect PD ED PE EXPANDED - General General: Alert, Disheveled, poorly kept - HEENT HEENT: Right maxillary sinus TTP, Left maxillary sinus TTP, Nasal congestion, Dry mucous membranes, Other (poor dentition) - Neck Neck: Other (chronic torticollis) - Cardiac Cardiac: Tachy - Respiratory Respiratory: Rhonchi, Other (few scattered rhonchi) Results - Vitals Vitals: Vital Signs - 24 hr 06/12/17 06/12/17 19:55 20:55 Temperature 36 C L Heart Rate 119 H 108 H Respiratory 20 18 Rate Blood Pressure 145/95 H O2 Saturation 96 Oxygen O2 Source Room air PD MEDICAL DECISION MAKING - ED course Complexity details: reviewed old records, reviewed results, re-evaluated patient , considered differential, d/w patient ED course: Patient was seen and examined at bedside. Patient was tachycardic but was at his baseline. patient was treated with nebulizer treatments, toradol and pseudophed. Patient had moderate response to the therapy. Patient has had extensive work up over the last few months including echo and CT angio, all of which have been normal. Patient required no further work up at this time and was stable for discharge with outpatient follow up.
[2017-06-12] MEDS ORDERED: PSEUDOEPHEDRINE 30 MG TABLET PO STA (21:33)
[2017-06-12] MEDS ORDERED: PSEUDOEPHEDRINE 30 MG TABLET PO ONE (21:49)
[2017-06-12 22:15] VITALS: BP 157/88
== END 2017-06-12 22:06 | disposition home or self-care (01) ==
LOC: ED 19:53
DX: J32.9 Chronic sinusitis, unspecified (principal); Z59.0 Homelessness; J45.909 Unspecified asthma, uncomplicated; F17.200 Nicotine dependence, unspecified, uncomplicated
CPT/HCPCS: 94640; 96372; 99282; 99283; A9270; J7613

== ENCOUNTER 2017-06-18 19:21 | Emergency (ER) | payer MEDICAID ==
[2017-06-18] MEDS ORDERED: SODIUM CHLORIDE 0.9% 1,000 ML IV ONE (19:42)
[2017-06-18] MEDS ORDERED: LORazepam 2 MG/ML SYRINGE IVP STA (19:42)
[2017-06-18] MEDS ORDERED: METOPROLOL 5 MG/5 ML VIAL IVP STA (19:42)
--- NOTE | 2017-06-18 19:47 | ED Physician Documentation ---
PD HPI CHEST PAIN - Stated complaint Stated Complaint: IRREGULAR HR - Chief complaint Chief Complaint: Cardiac - History obtained from History obtained from: Patient - History of Present Illness Timing - onset: Other (32-year-old gentleman with history of tobacco and alcohol use, homelessness. He has been having a lot of trouble lately with chest pain and chest symptoms. Actually saw him approximately a month and a half ago, he was having chest pain and had an indeterminate troponin. 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 He was admitted to the hospital and He was ruled out, his troponins had stayed stable at around 0.3, he had a negative echocardiogram. Today around noon he started to feel palpitations especially when he took a deep breath, it feels like his heart is skipping a beat when he takes a deep breath and he gets dizzy with it seeing stars and is feeling very anxious. He says his last drink was about 24 hours ago. He has had 2 CT angiograms recently, negative for acute findings.) Review of Systems Constitutional: reports: Fatigue. denies: Fever, Chills Nose: reports: Rhinorrhea / runny nose, Congestion, Sinus pressure / pain Throat: denies: Sore throat Cardiac: reports: Chest pain / pressure, Palpitations. denies: Pedal edema, Calf pain Respiratory: reports: Dyspnea. denies: Cough GI: denies: Abdominal Pain PD PAST MEDICAL HISTORY - Past Medical History Cardiovascular: None Respiratory: Asthma Neuro: None Endocrine/Autoimmune: None GI: Pancreatitis : None HEENT: None Psych: ADD/ADHD Musculoskeletal: Chronic back pain Derm: None - Past Surgical History Past Surgical History: Yes HEENT: Tonsil/Adenoidectomy - Present Medications Home Medications: Ambulatory Orders Medication Instructions Recorded Confirmed HYDROcod/ACETAM 5/325 [[place] 5/325] 1 - 2 ea PO Q6H PRN #15 tablet 04/30/17 Lorazepam [Ativan] 1 mg PO TID PRN #12 tablet 04/30/17 06/18/17 Promethazine [Phenergan] 25 - 50 mg PO Q6H PRN #10 tab 04/30/17 06/18/17 raNITIdine [Zantac] 150 mg PO BID #30 tablet 04/30/17 06/18/17 Lorazepam [Ativan] 1 - 2 mg PO Q6HR PRN #30 tablet 05/07/17 06/18/17 Olanzapine [Zyprexa] 2.5 mg PO QPM #7 tablet 05/07/17 06/18/17 traMADol [Ultram] 50 - 100 mg PO Q6H PRN #20 tablet 05/07/17 06/18/17 Diazepam 5 mg PO TID PRN #20 tablet 05/17/17 06/18/17 Famotidine [Pepcid] 20 mg PO ONCE #30 tablet 05/17/17 06/18/17 Naproxen 375 mg PO BID #20 tablet 05/17/17 06/18/17 Ondansetron HCl [Zofran] 4 mg PO Q6H PRN #20 tablet 05/17/17 06/18/17 cloNIDine [Catapres] 0.1 mg PO BID #14 tablet 05/17/17 06/18/17 Azithromycin 250 mg PO DAILY #4 tablet 06/04/17 06/18/17 Benzonatate [Tessalon Perle] 100 mg PO Q8HR #20 capsule 06/04/17 06/18/17 Codeine Phosphate/Guaifenesin 10 ml PO TID #120 ml 06/04/17 06/18/17 [Guaifen-Codeine 200-20 mg/10Ml] Ondansetron Odt [Zofran] 4 mg TL Q6H PRN #14 tablet 06/04/17 06/18/17 predniSONE [Deltasone] 60 mg PO DAILY 5 Days tablet 06/04/17 06/18/17 Albuterol Sulf [Ventolin Hfa 2 puffs INH Q4HR PRN #1 inhaler 06/06/17 06/18/17 Inhaler] Pseudoeph/Dm/Guaifen/Acetamin 1 each PO Q6H #20 tablet 06/12/17 06/18/17 [Duraflu 477-20-744-60 mg Tab] Cyclobenzaprine [Flexeril] 10 mg PO TID PRN #10 tablet 06/18/17 Magnesium Oxide 400 mg PO DAILY #7 tablet 06/18/17 Metoprolol Succinate 25 mg PO DAILY #30 tab.er.24h 06/18/17 - Allergies Allergies/Adverse Reactions: Allergies Allergy/AdvReac Type Severity Reaction Status Date / Time meloxicam Allergy Intermediate Dizziness Verified 06/18/17 19:30 Penicillins Allergy Unknown Verified 06/18/17 19:30 prochlorperazine Allergy Anxiety Verified 06/18/17 19:30 [From Compazine] prochlorperazine edisylate * Allergy Anxiety Verified 06/18/17 19:30 [From Compazine] prochlorperazine maleate * Allergy Anxiety Verified 06/18/17 19:30 [From Compazine] diphenhydramine HCl * AdvReac Anxiety Verified 06/18/17 19:30 [From Benadryl] - Social History Does the pt smoke?: Yes Smoking Status: Current every day smoker Does the pt drink ETOH?: Yes Does the pt have substance abuse?: No - Immunizations Immunizations are current?: Yes Immunizations: TDAP current <10years - POLST Patient has POLST: No POLST Status: Full Code PD ED PE NORMAL - Vitals Vital signs reviewed: Yes - General General: Alert and oriented X 3, Other (He is shaky and anxious) - HEENT HEENT: PERRL, EOMI - Neck Neck: Supple, no meningeal sign, No bony TTP - Cardiac Cardiac: Other (Tachycardic, regular with frequent extrasystoles which correspond to PVCs on the monitor, no murmur.) - Respiratory Respiratory: Other (Nonlabored, mild expiratory wheezes, no focal findings.) - Abdomen Abdomen: Soft, Non tender - Extremities Extremities: No deformity, No tenderness to palpate, No edema, No calf tenderness / cord - Neuro Neuro: Alert and oriented X 3, Normal speech Results - Vitals Vitals: Vital Signs - 24 hr 06/18/17 06/18/17 06/18/17 19:27 19:57 20:13 Temperature 37 C Heart Rate 113 H 119 H 90 Respiratory 18 18 18 Rate Blood Pressure 126/87 H 114/74 112/67 O2 Saturation 98 98 99 06/18/17 20:37 Temperature Heart Rate 94 Respiratory 16 Rate Blood Pressure 109/74 O2 Saturation 97 Oxygen O2 Source Room air - EKG (time done) 1933 Rate: Rate (enter#) (108) Rhythm: Sinus tachycardia [place]: Normal Intervals: Normal [place] Ischemia: ST elevation c/w repol. No: ST elevation c/w ischemia Compare to prior EKG: Unchanged from prior EKG Computer interpretation: Agree with computer - Labs Labs: Laboratory Tests 06/18/17 06/18/17 06/18/17 19:50 19:50 20:40 WBC 8.4 RBC 4.38 L Hgb 14.6 Hct 43.2 MCV 98.7 H MCH 33.4 H MCHC 33.9 RDW 14.3 Plt Count 134 MPV 8.3 Neut # 6.3 Lymph # 1.4 L [place] # 0.6 Eos # 0.1 Baso # 0.0 Absolute Nucleated RBC 0.00 Nucleated RBC % 0.0 Sodium 137 Potassium 3.3 L Chloride 105 Carbon Dioxide 24 Anion Gap 8.0 BUN 9 Creatinine 1.0 Estimated GFR (MDRD) 87 L Glucose 119 H Calcium 8.9 Magnesium 1.3 L Total Bilirubin 0.8 AST 43 H ALT 61 H Alkaline Phosphatase 68 Total Protein 6.5 L Albumin 4.0 Globulin 2.5 Albumin/Globulin Ratio 1.6 Lipase 53 H Urine Color YELLOW Urine Clarity CLEAR Urine pH 7.0 Ur Specific [place] 1.010 Urine Protein NEGATIVE Urine Glucose (UA) NEGATIVE Urine Ketones NEGATIVE Urine Occult Blood NEGATIVE Urine Nitrite NEGATIVE Urine Bilirubin NEGATIVE Urine Urobilinogen 0.2 (NORMAL) Ur Leukocyte Esterase NEGATIVE Ur Microscopic Review NOT INDICATED Urine Culture Comments NOT INDICATED Ethyl Alcohol < 5.0 PD MEDICAL DECISION MAKING - ED course ED course: 32-year-old gentleman with palpitations and dizziness, having frequent PVCs on the monitor, after the administration of a milligram of Ativan (presumably because of some elements of alcohol withdrawal) and IV metoprolol PVCs had gone and he was feeling much better from a dizziness standpoint. 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 For this he was prescribed it a shot of Toradol and Valium. Magnesium was repleted IV and potassium orally. Looking back in the chart he always has some level of tachycardia, this could be from anxiety or alcohol withdrawal when he arrives. Because of lack of ability to follow-up with primary care I think a low-dose of metoprolol going forward is appropriate. Departure - Departure Disposition: 01 Home, Self Care Clinical Impression: Back muscle spasm, Sinus tachycardia, PVCs (premature ventricular contractions) , Alcoholic liver damage Condition: Good Record reviewed to determine appropriate education?: Yes Instructions: ED Palpitations, ED Alcohol Abuse Follow-Up: [facility] [Provider Group] Prescriptions: Cyclobenzaprine [Flexeril] 10 mg PO TID PRN #10 tablet PRN Reason: Pain Magnesium Oxide 400 mg PO DAILY #7 tablet Metoprolol Succinate 25 mg PO DAILY #30 tab.er.24h Comments: It is imperative to follow-up with the primary care physician and abstain from alcohol. Return if worse.
[2017-06-18] MEDS ORDERED: LORazepam 2 MG/ML SYRINGE ONE (19:50)
[2017-06-18] MEDS ORDERED: METOPROLOL 5 MG/5 ML VIAL IVP ONE (19:51)
[2017-06-18 20:04] LABS: BASOPHILS % (AUTO) 0.5 %; EOSINOPHILS # (AUTO) 0.1 10^3/uL (0.0-0.7); EOSINOPHILS % (AUTO) 1.1 %; HCT - HEMATOCRIT 43.2 % (42.0-52.0); HGB - HEMOGLOBIN 14.6 g/dL (14.0-18.0); LYMPHOCYTES # (AUTO) 1.4 10^3/uL (1.5-3.5); LYMPHOCYTES % (AUTO) 16.8 %; MEAN CORPUSCULAR HEMOGLOBIN 33.4 pg (27.0-31.0); MEAN CORPUSCULAR HGB CONC 33.9 g/dL (32.0-36.0); MEAN CORPUSCULAR VOLUME 98.7 fL (80.0-94.0); MEAN PLATELET VOLUME 8.3 fL (7.4-11.4); MONOCYTES # (AUTO) 0.6 10^3/uL (0.0-1.0); NEUTROPHILS # (AUTO) 6.3 10^3/uL (1.5-6.6); NEUTROPHILS % (AUTO) 74.6 %; RED BLOOD COUNT 4.38 10^6/uL (4.70-6.10); RED CELL DISTRIBUTION WIDTH 14.3 % (12.0-15.0); UNCORRECTED WHITE BLOOD COUNT 8.4 x10^3/uL; WHITE BLOOD COUNT 8.4 x10^3/uL (4.8-10.8)
[2017-06-18 20:14] LABS: ALBUMIN/GLOBULIN RATIO 1.6 (1.0-2.2); BILIRUBIN,TOTAL 0.8 mg/dL (0.2-1.0); BUN - BLOOD UREA NITROGEN 9 mg/dL (6-20); CALCIUM 8.9 mg/dL (8.5-10.3); CARBON DIOXIDE - CO2 24 mmol/L (21-32); CHLORIDE 105 mmol/L (101-111); GFR - MDRD 87 (>89); GLUCOSE 119 mg/dL (70-100); LIPASE 53 U/L (22-51); MAGNESIUM 1.3 mg/dL (1.7-2.8); POTASSIUM 3.3 mmol/L (3.5-5.0); SODIUM 137 mmol/L (135-145); TOTAL PROTEIN 6.5 g/dL (6.7-8.2)
[2017-06-18] MEDS ORDERED: MAGNESIUM SULFATE 2 GRAM 2 GM/50 ML BAG IV ONE ×2 (20:28→20:37)
[2017-06-18] MEDS ORDERED: POTASSIUM BICARB 25 MEQ TABLET PO STA (20:28)
[2017-06-18] MEDS ORDERED: diazePAM INJ 5 MG/ML SYRINGE IVP STA (20:28)
[2017-06-18] MEDS ORDERED: KETOROLAC 60 MG/2 ML VIAL IVP STA (20:29)
[2017-06-18] MEDS ORDERED: KETOROLAC 30 MG/ML VIAL ONE (20:36)
[2017-06-18] MEDS ORDERED: POTASSIUM BICARB 25 MEQ TABLET PO ONE (20:36)
[2017-06-18] MEDS ORDERED: diazePAM INJ 5 MG/ML SYRINGE ONE (20:36)
[2017-06-18] MEDS ORDERED: SODIUM CHLORIDE FLUSH 0.9% 10 ML SYRINGE IVP ONE (20:49)
[2017-06-18 20:58] LABS: BILIRUBIN,URINE NEGATIVE (NEGATIVE); UA CHARGE (STRIP ONLY) YES; UR CULTURE IF IND NOT INDICATED
[2017-06-18 21:10] VITALS: BP 114/77
== END 2017-06-18 21:10 | disposition home or self-care (01) ==
LOC: ED 19:21
DX: M62.830 Muscle spasm of back (principal); R00.0 Tachycardia, unspecified; I49.3 Ventricular premature depolarization; K70.9 Alcoholic liver disease, unspecified; F17.200 Nicotine dependence, unspecified, uncomplicated
CPT/HCPCS: 36415; 80053; 80320; 81003; 83690; 83735; 85025; 93005; 96361; 96365; 96375; 99283; A9270; J2060; 81001; 87086

== ENCOUNTER 2017-06-25 19:19 | Emergency (ER) | payer MEDICAID ==
[2017-06-25] MEDS ORDERED: KETOROLAC 60 MG/2 ML VIAL IM STA (20:57)
[2017-06-25] MEDS ORDERED: diazePAM 5 MG TABLET PO STA (20:58)
[2017-06-25] MEDS ORDERED: DEXAMETHASONE 10 MG/ML VIAL PO STA (20:58)
[2017-06-25] MEDS ORDERED: KETOROLAC 60 MG/2 ML VIAL ONE (21:18)
[2017-06-25] MEDS ORDERED: diazePAM 5 MG TABLET PO ONE (21:18)
[2017-06-25] MEDS ORDERED: CHERRY SYRUP 10 ML UDC PO ONE (21:19)
[2017-06-25] MEDS ORDERED: DEXAMETHASONE 10 MG/ML VIAL ONE (21:19)
--- NOTE | 2017-06-25 21:58 | XRAY Preliminary Report ---
Exam: XR LUMBAR SPINE 2 VIEW IMPRESSION: 1. No acute bony abnormality. 2. Old minimal wedging thoracolumbar junction. 3. Progression of mild degenerative disk disease L5-S1. RADIA SITE ID: [id number]
--- NOTE | 2017-06-25 22:10 | ED Physician Documentation ---
PD HPI BACK PAIN - Stated complaint Stated Complaint: BACK PX - Chief complaint Chief Complaint: Back Pain - History obtained from History obtained from: Patient - History of Present Illness Timing - onset: Today Timing - details: Abrupt onset, Still present Location: Lower, Right Quality: Pain, Sharp Associated symptoms: No: Fever, Weakness, Numbness, Incontinent of urine, Unable to urinate Worsened by: Movement, Lifting, Twisting Contributing factors: Lifting Similar symptoms before: Has not had sx before Recently seen: Not recently seen - Additional information Additional information: Patient is a 32 year old male with multiple ER visits for various complaints ( with baseline tachycardia) who is presenting to the emergency department for back pain. Patient states that today at work he was lifting, heavy rocks at work and now he has low back pain. Patient states that he took a few shots of alcohol to try to help, but it didn't really help. Patient denies any trauma, or any neurological symptoms. Review of Systems Constitutional: denies: Fever, Chills Eyes: reports: Reviewed and negative Ears: reports: Reviewed and negative Nose: reports: Reviewed and negative Throat: reports: Reviewed and negative Respiratory: reports: Reviewed and negative GI: reports: Reviewed and negative : denies: Unable to Void, Incontinent Skin: denies: Rash, Lesions, Abrasion (s) Musculoskeletal: reports: Back pain Neurologic: denies: Generalized weakness, Focal weakness, Numbness Immunocompromised: denies: Immunocompromised PD PAST MEDICAL HISTORY - Past Medical History Past Medical History: Yes Cardiovascular: None Respiratory: Asthma Neuro: None Endocrine/Autoimmune: None GI: Pancreatitis : None HEENT: None Psych: ADD/ADHD Musculoskeletal: Chronic back pain Derm: None - Past Surgical History Past Surgical History: Yes HEENT: Tonsil/Adenoidectomy - Present Medications Home Medications: Ambulatory Orders Medication Instructions Recorded Confirmed HYDROcod/ACETAM 5/325 [[place] 5/325] 1 - 2 ea PO Q6H PRN #15 tablet 04/30/17 Lorazepam [Ativan] 1 mg PO TID PRN #12 tablet 04/30/17 06/18/17 Promethazine [Phenergan] 25 - 50 mg PO Q6H PRN #10 tab 04/30/17 06/18/17 raNITIdine [Zantac] 150 mg PO BID #30 tablet 04/30/17 06/18/17 Lorazepam [Ativan] 1 - 2 mg PO Q6HR PRN #30 tablet 05/07/17 06/18/17 Olanzapine [Zyprexa] 2.5 mg PO QPM #7 tablet 05/07/17 06/18/17 traMADol [Ultram] 50 - 100 mg PO Q6H PRN #20 tablet 05/07/17 06/18/17 Diazepam 5 mg PO TID PRN #20 tablet 05/17/17 06/18/17 Famotidine [Pepcid] 20 mg PO ONCE #30 tablet 05/17/17 06/18/17 Naproxen 375 mg PO BID #20 tablet 05/17/17 06/18/17 Ondansetron HCl [Zofran] 4 mg PO Q6H PRN #20 tablet 05/17/17 06/18/17 cloNIDine [Catapres] 0.1 mg PO BID #14 tablet 05/17/17 06/18/17 Azithromycin 250 mg PO DAILY #4 tablet 06/04/17 06/18/17 Benzonatate [Tessalon Perle] 100 mg PO Q8HR #20 capsule 06/04/17 06/18/17 Codeine Phosphate/Guaifenesin 10 ml PO TID #120 ml 06/04/17 06/18/17 [Guaifen-Codeine 200-20 mg/10Ml] Ondansetron Odt [Zofran] 4 mg TL Q6H PRN #14 tablet 06/04/17 06/18/17 predniSONE [Deltasone] 60 mg PO DAILY 5 Days tablet 06/04/17 06/18/17 Albuterol Sulf [Ventolin Hfa 2 puffs INH Q4HR PRN #1 inhaler 06/06/17 06/18/17 Inhaler] Pseudoeph/Dm/Guaifen/Acetamin 1 each PO Q6H #20 tablet 06/12/17 06/18/17 [Duraflu 493-20-900-60 mg Tab] Cyclobenzaprine [Flexeril] 10 mg PO TID PRN #10 tablet 06/18/17 Magnesium Oxide 400 mg PO DAILY #7 tablet 06/18/17 Metoprolol Succinate 25 mg PO DAILY #30 tab.er.24h 06/18/17 Cyclobenzaprine [Flexeril] 10 mg PO TID PRN #10 tablet 06/25/17 - Allergies Allergies/Adverse Reactions: Allergies Allergy/AdvReac Type Severity Reaction Status Date / Time meloxicam Allergy Intermediate Dizziness Verified 06/18/17 19:30 Penicillins Allergy Unknown Verified 06/18/17 19:30 prochlorperazine Allergy Anxiety Verified 06/18/17 19:30 [From Compazine] prochlorperazine edisylate * Allergy Anxiety Verified 06/18/17 19:30 [From Compazine] prochlorperazine maleate * Allergy Anxiety Verified 06/18/17 19:30 [From Compazine] diphenhydramine HCl * AdvReac Anxiety Verified 06/18/17 19:30 [From Benadryl] - Social History Does the pt smoke?: Yes Smoking Status: Current every day smoker Does the pt drink ETOH?: Yes Does the pt have substance abuse?: No - Immunizations Immunizations are current?: Yes Immunizations: TDAP current <10years - POLST Patient has POLST: No POLST Status: Full Code PD ED PE NORMAL - Vitals Vital signs reviewed: Yes - General General: Alert and oriented X 3, No acute distress - HEENT HEENT: Atraumatic, PERRL, Moist mucous membranes - Neck Neck: Supple, no meningeal sign, No JVD - Respiratory Respiratory: Clear bilaterally - Abdomen Abdomen: Soft, Non distended - Derm Derm: Normal color, No rash - Extremities Extremities: No deformity, No tenderness to palpate, Normal ROM s pain, No edema - Neuro Neuro: Alert and oriented X 3, No motor deficit, No sensory deficit, Normal speech PD ED PE EXPANDED - Cardiac Cardiac: Tachy - Back Back: Soft tissue tenderness (tenderness to palpation of left and right lumbar paraspinal muscles ) Results - Vitals Vitals: Vital Signs - 24 hr 06/25/17 06/25/17 19:24 22:22 Temperature 36.4 C L Heart Rate 129 H 110 H Respiratory 18 18 Rate Blood Pressure 138/94 H 122/83 H O2 Saturation 98 95 Oxygen O2 Source Room air - Rads (name of study) lumbar spine Radiology: Final report received (degenerative disc disease) PD MEDICAL DECISION MAKING - ED course Complexity details: reviewed old records, reviewed results, re-evaluated patient , considered differential, d/w patient ED course: Patient was seen and examined at bedside. Patient was tachycardic but it was at his baseline. Patient was treated with toradol, decadron, and valium. Patient was sent for imaging. When patient returned from imaging the results were reviewed. Patient responded well to therapy. Patient required no further work up and patient was stable for discharge with outpatient follow up. Departure - Departure Disposition: Home, Self Care Clinical Impression: Low back strain Condition: Good Instructions: ED Sprain Strain Lumbar Follow-Up: primary,care provider [Other] - As Needed Prescriptions: Cyclobenzaprine [Flexeril] 10 mg PO TID PRN #10 tablet PRN Reason: Spasms Comments: Your diagnostics today were within normal limits. You likely strained your back and you have some degenerative disc disease that could make you more prone to low back pain in the future. You can take motrin or tylenol as needed for pain and flexeril for spasm. You should try to stay active and work on stretching your lower back. You should follow up with the clinic if your symptoms persist. You may return to the emergency department at any time for new, worsening or uncontrollable symptoms. Discharge Date/Time: 06/25/17 22:22
[2017-06-25 22:26] VITALS: BP 122/83
--- NOTE | 2017-06-26 12:35 | XRAY Report ---
EXAM: LUMBOSACRAL SPINE RADIOGRAPHY EXAM DATE: 06/25/2017 09:06 PM. CLINICAL HISTORY: Low back pain after lifting accident. COMPARISONS: 11/14/2008. TECHNIQUE: 3 views. FINDINGS: Alignment: Normal. No spondylolisthesis or scoliosis. Bones: Five [id number] lumbar vertebral bodies are present. Remote mild wedging T11, T12 and L1 without bony reactive changes. Trabecular and cortical patterns are intact. Disks: Increased degree of narrowing at L5-S1, now moderate in degree, previously mild. No associated bony reactive changes. Facets: No degenerative changes. Sacroiliac Joints: Unremarkable. Soft Tissues: Normal. The visualized bowel gas pattern is normal. IMPRESSION: 1. No acute bony abnormality. 2. Old minimal wedging thoracolumbar junction. 3. Progression of mild degenerative disk disease L5-S1. [facility] Referring Provider Line: [phone] SITE ID: [id number]
== END 2017-06-25 22:22 | disposition home or self-care (01) ==
LOC: ED 19:19
DX: S39.012A Strain of muscle, fascia and tendon of lower back, initial encounter (principal); X50.0XXA Overexertion from strenuous movement or load, initial encounter; Y99.0 Civilian activity done for income or pay; J45.909 Unspecified asthma, uncomplicated; F17.200 Nicotine dependence, unspecified, uncomplicated
CPT/HCPCS: 72100; 96372; 99283; A9270

== ENCOUNTER 2017-07-01 20:18 | Emergency (ER) | payer MEDICAID ==
--- NOTE | 2017-07-01 20:41 | ED Physician Documentation ---
PD HPI BACK INJURY - Stated complaint Stated Complaint: BACK PX/UNABLE TO URINATE - History obtained from History obtained from: Patient - History of Present Illness Location: Lower Type of injury: Other (states repetitive lifting at work and has increasing back pain.) Timing - onset: How many weeks ago (several) Timing - duration: Weeks Timing - details: Gradual onset Pain level max: 8 Pain level now: 8 Quality: Pain, Spasm, Similar to prior episodes Improved by: Rest Worsened by: Moving, Palpating Associated symptoms: No: Fever, Weakness, Numbness, Incontinent of urine, Unable to urinate, Hematuria, Incontinent of stool Similar symptoms before: Diagnosis (back spasm) Recently seen: Clinic (several times for various complaints. seen 6 days ago for same) Review of Systems Ten Systems: 10 systems reviewed and negative Constitutional: denies: Fever, Chills Ears: denies: Ear pain Nose: denies: Rhinorrhea / runny nose, Congestion Throat: denies: Sore throat Cardiac: denies: Chest pain / pressure Respiratory: denies: Cough, Wheezing GI: denies: Abdominal Pain, Nausea, Vomiting, Diarrhea, Hematemesis : reports: Dysuria, Other (not sexually active for 2-3 years). denies: Frequency, Hesitancy Skin: denies: Rash Musculoskeletal: denies: Neck pain Neurologic: denies: Focal weakness, Numbness, Confused, Altered mental status, Headache PD PAST MEDICAL HISTORY - Past Medical History Cardiovascular: None Respiratory: Asthma Neuro: None Endocrine/Autoimmune: None GI: Pancreatitis : None HEENT: None Psych: ADD/ADHD Musculoskeletal: Chronic back pain Derm: None - Past Surgical History Past Surgical History: Yes HEENT: Tonsil/Adenoidectomy - Present Medications Home Medications: Ambulatory Orders Medication Instructions Recorded Confirmed Naproxen 375 mg PO BID #20 tablet 05/17/17 07/01/17 Ondansetron Odt [Zofran] 4 mg TL Q6H PRN #14 tablet 06/04/17 07/01/17 predniSONE [Deltasone] 60 mg PO DAILY 5 Days tablet 06/04/17 07/01/17 Albuterol Sulf [Ventolin Hfa 2 puffs INH Q4HR PRN #1 inhaler 06/06/17 07/01/17 Inhaler] Cyclobenzaprine [Flexeril] 10 mg PO TID PRN #10 tablet 06/25/17 07/01/17 Lidocaine Patch 5% [Lidoderm Patch] 1 each TOP DAILY PRN #7 patch 07/01/17 - Allergies Allergies/Adverse Reactions: Allergies Allergy/AdvReac Type Severity Reaction Status Date / Time meloxicam Allergy Intermediate Dizziness Verified 07/01/17 20:28 Penicillins Allergy Unknown Verified 07/01/17 20:28 prochlorperazine Allergy Anxiety Verified 07/01/17 20:28 [From Compazine] prochlorperazine edisylate * Allergy Anxiety Verified 07/01/17 20:28 [From Compazine] prochlorperazine maleate * Allergy Anxiety Verified 07/01/17 20:28 [From Compazine] diphenhydramine HCl * AdvReac Anxiety Verified 07/01/17 20:28 [From Benadryl] - Social History Does the pt smoke?: Yes Smoking Status: Current every day smoker Does the pt drink ETOH?: Yes Does the pt have substance abuse?: No - Immunizations Immunizations are current?: Yes Immunizations: TDAP current <10years - POLST Patient has POLST: No POLST Status: Full Code PD ED PE NORMAL - Vitals Vital signs reviewed: Yes - General General: Alert and oriented X 3, No acute distress - HEENT HEENT: Moist mucous membranes - Neck Neck: Supple, no meningeal sign, No bony TTP - Cardiac Cardiac: RRR, Strong equal pulses - Respiratory Respiratory: No respiratory distress, Clear bilaterally - Abdomen Abdomen: Soft, Non tender, Non distended - Back Back: No spinal TTP, Other (TTP low lumbar B paraspinal) - Derm Derm: Warm and dry, No rash - Extremities Extremities: Normal ROM s pain, No edema, No calf tenderness / cord, Other ( normal bilateral lower extremity patellar and ankle jerk reflexes. 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, No motor deficit, No sensory deficit, Normal speech - Psych Psych: Normal mood, Normal affect Results - Vitals Vitals: Vital Signs - 24 hr 07/01/17 07/01/17 20:25 21:53 Temperature 37.5 C 37.2 C Heart Rate 114 H 101 H Respiratory 18 20 Rate Blood Pressure 121/85 H 121/74 O2 Saturation 99 96 Oxygen O2 Source Room air - Labs Labs: Laboratory Tests 07/01/17 21:05 Urine Color YELLOW Urine Clarity CLEAR Urine pH 6.5 Ur Specific [place] <=1.005 Urine Protein NEGATIVE Urine Glucose (UA) NEGATIVE Urine Ketones NEGATIVE Urine Occult Blood NEGATIVE Urine Nitrite NEGATIVE Urine Bilirubin NEGATIVE Urine Urobilinogen 0.2 (NORMAL) Ur Leukocyte Esterase NEGATIVE Ur Microscopic Review NOT INDICATED Urine Culture Comments NOT INDICATED PD MEDICAL DECISION MAKING - ED course Complexity details: reviewed old records, reviewed results, re-evaluated patient , considered differential (no cauda equina, no spinal epidural abscess, no fracture, no aortic dissection or evidence of aneursym rupture), d/w patient ED course: Patient is a 32-year-old male with a history of chronic back pain, no acute issues on examination tonight. States has Flexeril at home but has not taken it. Will trial on Lidoderm patches as well. He requested something stronger than Naprosyn, Request tramadol, but this interacts at the Flexeril and I do not think it is garcia to take these together. Patient will follow up with his primary care provider for further evaluation and care including likely referral to physical therapy. Patient counseled regarding signs and symptoms for which I believe and urgent re-evaluation would be necessary. Patient with good understanding of and agreement to plan and is comfortable going home at this time This document was made in part using voice recognition software. While efforts are made to proofread this document, sound alike and grammatical errors may occur. Bladder scan was performed as he said he was having difficulty urinating, postvoid residual of 53. Urinated without difficulty in the emergency department. Ambulating without difficulty. Departure - Departure Disposition: 01 Home, Self Care Clinical Impression: Back muscle spasm Condition: Good Instructions: ED Spasm Back No Trauma Follow-Up: your,doctor in 1 week [Other] Prescriptions: Lidocaine Patch 5% [Lidoderm Patch] 1 each TOP DAILY PRN #7 patch PRN Reason: back pain Comments: Continue your medications as prescribed. You need to follow up with your doctor for further care of your back. You may benefit from physical therapy. Discharge Date/Time: 07/01/17 22:18
[2017-07-01] MEDS ORDERED: CYCLOBENZAPRINE 10 MG TABLET PO STA (20:51)
[2017-07-01] MEDS ORDERED: CYCLOBENZAPRINE 10 MG TABLET PO ONE (21:08)
[2017-07-01 21:14] LABS: BILIRUBIN,URINE NEGATIVE (NEGATIVE); PH,URINE 6.5 PH (5.0-7.5)
[2017-07-01 21:35] LABS: UA CHARGE (STRIP ONLY) YES; UR CULTURE IF IND NOT INDICATED
[2017-07-01 21:53] VITALS: BP 121/74
[2017-07-01] MEDS ORDERED: LIDOCAINE PATCH 5% TOP STA (22:09)
[2017-07-01] MEDS ORDERED: LIDOCAINE PATCH 5% TOP ONE (22:16)
== END 2017-07-01 22:18 | disposition home or self-care (01) ==
LOC: ED 20:18
DX: M62.830 Muscle spasm of back (principal); R33.9 Retention of urine, unspecified; G89.29 Other chronic pain; F17.200 Nicotine dependence, unspecified, uncomplicated
CPT/HCPCS: 51798; 81003; 99283; A9270; 81001; 87086

== ENCOUNTER 2017-07-14 20:07 | Outpatient (CLI) | payer MEDICAID | END 2017-07-14 20:08 | disposition critical access hospital (66) | LOC: EMS 20:07 | PROVIDERS: ATTEND Surgery | DX: R07.9 Chest pain, unspecified (principal) | CPT/HCPCS: A0425; A0429 ==

== ENCOUNTER 2017-07-14 20:33 | Emergency (ER) | payer MEDICAID ==
--- NOTE | 2017-07-14 20:51 | ED Physician Documentation ---
History of Present Illness - Stated complaint Stated Complaint: CP - Chief complaint Chief Complaint: General - History obtained from History obtained from: Patient, EMS - History of Present Illness Timing: How many hours ago (3) Pain level max: 5 Pain level now: 5 Improved by: nothing Worsened by: palpation of the chest wall - Additonal information Additional information: Patient is a 32-year-old male who states that he has been tripping and falling while intoxicated. He complains of left upper chest wall pain as well as striking his head. States that these about been ongoing for about 3 hours. Denies any recent illnesses. No fevers or chills. No shortness of breath. No wheezing. Review of Systems Ten Systems: 10 systems reviewed and negative Constitutional: denies: Fever, Chills Eyes: denies: Decreased vision, Photophobia Ears: denies: Ear pain Nose: denies: Rhinorrhea / runny nose, Congestion Throat: denies: Sore throat Cardiac: denies: Palpitations Respiratory: denies: Dyspnea, Cough, Hemoptysis, Wheezing GI: denies: Abdominal Pain, Nausea, Vomiting, Diarrhea Skin: denies: Rash Musculoskeletal: denies: Neck pain, Back pain Neurologic: denies: Focal weakness, Numbness, Confused, Altered mental status, LOC PD PAST MEDICAL HISTORY - Past Medical History Cardiovascular: None Respiratory: Asthma Neuro: None Endocrine/Autoimmune: None GI: Pancreatitis : None HEENT: None Psych: ADD/ADHD Musculoskeletal: Chronic back pain Derm: None - Past Surgical History Past Surgical History: Yes HEENT: Tonsil/Adenoidectomy - Present Medications Home Medications: Ambulatory Orders Medication Instructions Recorded Confirmed Diazepam [Valium] 10 mg PO PRN PRN 07/14/17 07/14/17 - Allergies Allergies/Adverse Reactions: Allergies Allergy/AdvReac Type Severity Reaction Status Date / Time meloxicam Allergy Intermediate Dizziness Verified 07/01/17 20:28 Penicillins Allergy Unknown Verified 07/01/17 20:28 prochlorperazine Allergy Anxiety Verified 07/01/17 20:28 [From Compazine] prochlorperazine edisylate * Allergy Anxiety Verified 07/01/17 20:28 [From Compazine] prochlorperazine maleate * Allergy Anxiety Verified 07/01/17 20:28 [From Compazine] diphenhydramine HCl * AdvReac Anxiety Verified 07/01/17 20:28 [From Benadryl] - Social History Does the pt smoke?: Yes Smoking Status: Current every day smoker Does the pt drink ETOH?: Yes Does the pt have substance abuse?: No - Immunizations Immunizations are current?: Yes Immunizations: TDAP current <10years - POLST Patient has POLST: No POLST Status: Full Code PD ED PE NORMAL - Vitals Vital signs reviewed: Yes - General General: Alert and oriented X 3, No acute distress, Well developed/nourished - HEENT HEENT: Atraumatic, PERRL, EOMI, Ears normal, Moist mucous membranes - Neck Neck: Supple, no meningeal sign, No bony TTP - Cardiac Cardiac: RRR - Respiratory Respiratory: No respiratory distress, Clear bilaterally - Abdomen Abdomen: Soft, Non tender, Non distended - Back Back: No spinal TTP - Derm Derm: Warm and dry - Extremities Extremities: No deformity, Normal ROM s pain - Neuro Neuro: Alert and oriented X 3 Eye Opening: Spontaneous Motor: Obeys Commands Verbal: Oriented GCS Score: 15 - Free text exam Free text exam: TTP over the L upper chest wall, ribs 3-4. no crepitus or ecchymosis. reproduces pain Results - Vitals Vitals: Vital Signs - 24 hr 07/14/17 07/14/17 20:38 21:38 Temperature 35.8 C L 36.1 C L Heart Rate 100 98 Respiratory 18 16 Rate Blood Pressure 130/78 146/83 H O2 Saturation 96 97 Oxygen O2 Source Room air - EKG (time done) 2034 Rate: Rate (enter#) (96) Rhythm: NSR [place]: Normal Intervals: Normal MI QRS: Normal Ischemia: Normal ST segments Compare to prior EKG: Unchanged from prior EKG Computer interpretation: Agree with computer - Rads (name of study) head CT Radiology: Prelim report reviewed, EMP read contemporaneously, See rad report ( no acute abnormality.) L ribs with chest Radiology: Prelim report reviewed, EMP read contemporaneously, See rad report ( no acute abnormality.) PD MEDICAL DECISION MAKING - ED course Complexity details: reviewed old records, reviewed results, re-evaluated patient , considered differential, d/w patient ED course: Patient is a 32-year-old male who presents the emergency department complaining of left upper chest wall pain and had pain after falling earlier today. No acute findings on x-ray or CT. No acute findings on EKG. Ambulating without difficulty. We will have him follow-up with his doctor for further evaluation and care. No other acute traumatic injuries. No evidence of acute coronary syndrome. Patient has been drinking tonight and did have an elevated blood alcohol level on scene, but he is a alcoholic and so tolerates higher alcohol levels. Ambulating with a steady gait in the emergency department. Patient counseled regarding signs and symptoms for which I believe and urgent re- evaluation would be necessary. Patient with good understanding of and agreement to plan and is comfortable going home at this time This document was made in part using voice recognition software. While efforts are made to proofread this document, sound alike and grammatical errors may occur. Departure - Departure Disposition: 01 Home, Self Care Clinical Impression: Chest wall pain Fall Qualifiers: Encounter type: initial encounter Qualified Code(s): W19.XXXA - Unspecified fall, initial encounter Head injury Qualifiers: Encounter type: initial encounter Qualified Code(s): S09.90XA - Unspecified injury of head, initial encounter Alcohol intoxication Qualifiers: Complication of substance-induced condition: uncomplicated Qualified Code(s): F10.920 - Alcohol use, unspecified with intoxication, uncomplicated Condition: Good Instructions: ED Contusion Chest Wall, ED Alcohol Intoxication, ED Head Injury Closed Follow-Up: your,doctor in 1 week [Other] Comments: Return if you worsen. Your CT, xray and EKG are normal tonight. Discharge Date/Time: 07/14/17 22:13
--- NOTE | 2017-07-14 21:27 | XRAY Preliminary Report ---
Exam: XR RIBS W/PA CHEST LT IMPRESSION: Normal chest and rib radiography. [facility] SITE ID: [id number]
--- NOTE | 2017-07-14 21:29 | XRAY Report ---
EXAM: LEFT RIB RADIOGRAPHY EXAM DATE: 07/14/2017 09:14 PM. CLINICAL HISTORY: Fall. Left upper rib pain. COMPARISON: 06/05/2017. TECHNIQUE: 1 view of the chest and 3 views of the ribs. FINDINGS: Bones: Normal. No fracture or bone lesion. Lungs: No focal opacities. No pneumothorax. No pleural effusions. Mediastinum: Heart and mediastinal contours are unremarkable. Other: None. IMPRESSION: Normal chest and rib radiography. [facility] Referring Provider Line: [phone] SITE ID: [id number]
[2017-07-14 21:39] VITALS: BP 146/83
--- NOTE | 2017-07-14 21:48 | CT Preliminary Report ---
Exam: CT HEAD W/O IMPRESSION: Normal head CT. [facility] SITE ID: [id number]
--- NOTE | 2017-07-14 21:51 | CT Report ---
EXAM: CT HEAD EXAM DATE: 07/14/2017 09:12 PM. CLINICAL HISTORY: Fall, head injury. COMPARISON: 05/21/2008. TECHNIQUE: Multiaxial CT images were obtained from the foramen magnum to the vertex. Reformats: Coron al. IV contrast: None. In accordance with CT protocol optimization, one or more of the following dose reduction techniques w ere utilized for this exam: automated exposure control, adjustment of mA and/or KV based on patient s ize, or use of iterative reconstructive technique. FINDINGS: Parenchyma: No intraparenchymal hemorrhage. No evidence of mass, midline shift, or CT findings of inf arction. Mathew-white differentiation is distinct. Extraaxial Spaces: Normal for age. No subdural or epidural collections identified. Ventricles: Normal in size and position. Sinuses and Orbits: Imaged paranasal sinuses, orbits, and mastoids show no significant abnormality. Bones: No evidence of fracture or calvarial defect. Other: None. IMPRESSION: Normal head CT. [facility] Referring Provider Line: [phone] SITE ID: [id number]
== END 2017-07-14 22:13 | disposition home or self-care (01) ==
LOC: EDUNIT# → ED 20:33
DX: R07.89 Other chest pain (principal); S09.90XA Unspecified injury of head, initial encounter; W01.0XXA Fall on same level from slipping, tripping and stumbling without subsequent striking against object, initial encounter; F10.920 Alcohol use, unspecified with intoxication, uncomplicated; F17.200 Nicotine dependence, unspecified, uncomplicated
CPT/HCPCS: 70450; 93005; 99283

== ENCOUNTER 2017-07-16 14:51 | Emergency (ER) | payer MEDICAID ==
[2017-07-16] MEDS ORDERED: THIAMINE INJ 100 MG, FOLIC ACID INJ 1 MG in SODIUM CHLORIDE 0.9% 100ML 100 ML IV STA (15:55)
[2017-07-16] MEDS ORDERED: MAGNESIUM SULFATE 2 GRAM 2 GM/50 ML BAG IV STA (15:55)
[2017-07-16] MEDS ORDERED: LORazepam 2 MG/ML SYRINGE IVP STA ×3 (15:55→20:45)
[2017-07-16] MEDS ORDERED: MULTIVITAMIN 10 ML in SODIUM CHLORIDE 0.9% 1,000 ML IV STA (15:55)
[2017-07-16] MEDS ORDERED: SODIUM CHLORIDE 0.9% 1,000 ML IV ONE (15:55)
--- NOTE | 2017-07-16 15:58 | ED Physician Documentation ---
History of Present Illness - Stated complaint Stated Complaint: ABD PX/MHE - Chief complaint Chief Complaint: Abd Pain - Additonal information Additional information: hx from pt 31 male known alcoholic inc EtOH recently to deal with his chronic back pain (no new injury, no fever, no numbness weakness incont, no IVDA) sick for two days with upper abd pain NV so unable to drink no diarrhea no bad food no sick contacts now anxious and shaky he is homeless and cold he wishes he could just go to sleep and never wake up but does not have an active plan to harm himself (Celena Haywood) Review of Systems Constitutional: denies: Fever, Chills Cardiac: denies: Chest pain / pressure Respiratory: denies: Dyspnea GI: reports: Abdominal Pain, Nausea, Vomiting. denies: Diarrhea, Hematemesis Musculoskeletal: reports: Back pain Neurologic: denies: Focal weakness, Numbness Endocrine: denies: Easy bruising / bleeding Immunocompromised: denies: Immunocompromised PD PAST MEDICAL HISTORY - Past Medical History Cardiovascular: None Respiratory: Asthma Neuro: None Endocrine/Autoimmune: None GI: Pancreatitis : None HEENT: None Psych: ADD/ADHD Musculoskeletal: Chronic back pain Derm: None - Past Surgical History Past Surgical History: Yes HEENT: Tonsil/Adenoidectomy - Social History Does the pt smoke?: Yes Smoking Status: Current every day smoker Does the pt drink ETOH?: Yes Does the pt have substance abuse?: No - Immunizations Immunizations are current?: Yes Immunizations: TDAP current <10years - POLST Patient has POLST: No POLST Status: Full Code - Present Medications Home Medications: Ambulatory Orders Medication Instructions Recorded Confirmed Diazepam [Valium] 10 mg PO PRN PRN 07/14/17 07/14/17 raNITIdine [Zantac] 150 mg PO BID #60 tablet 07/16/17 Lorazepam [Ativan] 1 - 2 mg PO Q6HR PRN #30 tablet 07/17/17 Sucralfate 1 gm PO ACHS #60 tablet 07/17/17 - Allergies Allergies/Adverse Reactions: Allergies Allergy/AdvReac Type Severity Reaction Status Date / Time meloxicam Allergy Intermediate Dizziness Verified 07/01/17 20:28 Penicillins Allergy Unknown Verified 07/01/17 20:28 prochlorperazine Allergy Anxiety Verified 07/01/17 20:28 [From Compazine] prochlorperazine edisylate * Allergy Anxiety Verified 07/01/17 20:28 [From Compazine] prochlorperazine maleate * Allergy Anxiety Verified 07/01/17 20:28 [From Compazine] diphenhydramine HCl * AdvReac Anxiety Verified 07/01/17 20:28 [From Benadryl] PD ED PE NORMAL - Vitals Vital signs reviewed: Yes (tachy) - General General: Alert and oriented X 3 - HEENT HEENT: PERRL - Neck Neck: Supple, no meningeal sign - Cardiac Cardiac: RRR, No murmur - Respiratory Respiratory: No respiratory distress, Clear bilaterally - Abdomen Abdomen: Soft, Other (mild upper abd TTP no rebound or guarding) - Back Back: Other (no focal spine TTP no redness no swelling) - Neuro Neuro: No motor deficit (hip flex knee ext foot dorsi plantar great toe ext 5/5 priscilla, no ankle clonus, neg SLR), No sensory deficit Results - Rads (name of study) CXR Radiology: See rad report (NACPD no free air) - Vitals Vitals: Vital Signs - 24 hr 07/16/17 07/16/17 07/17/17 20:30 21:20 08:50 Temperature 37.3 C Heart Rate 88 95 98 Respiratory 16 20 20 Rate Blood Pressure 122/78 120/80 124/81 H O2 Saturation 99 96 97 Oxygen O2 Source Room air - Labs Labs: Laboratory Tests 07/16/17 07/16/17 07/16/17 16:55 16:55 16:55 WBC 6.5 RBC 4.04 L Hgb 13.7 L Hct 40.7 L MCV 100.8 H MCH 33.9 H MCHC 33.6 RDW 16.0 H Plt Count 240 MPV 7.0 L Sodium 136 Potassium 3.8 Chloride 102 Carbon Dioxide 23 Anion Gap 11.0 BUN 7 Creatinine 1.0 Estimated GFR (MDRD) 87 L Glucose 97 Calcium 8.7 Total Bilirubin 0.8 AST 42 ALT 43 Alkaline Phosphatase 72 Total Protein 6.2 L Albumin 3.8 Globulin 2.4 Albumin/Globulin Ratio 1.6 Lipase 49 TSH 0.50 Urine Color Urine Clarity Urine pH Ur Specific Agency Urine Protein Urine Glucose (UA) Urine Ketones Urine Occult Blood Urine Nitrite Urine Bilirubin Urine Urobilinogen Ur Leukocyte Esterase Ur Microscopic Review Urine Culture Comments Salicylates < 6.0 Urine Opiates Screen Ur Oxycodone Screen Urine Methadone Screen Ur Propoxyphene Screen Acetaminophen < 10 L Ur Barbiturates Screen Ur Tricyclics Screen Ur Phencyclidine Scrn Ur Amphetamine Screen U Methamphetamines Scrn U Benzodiazepines Scrn Urine Cocaine Screen U Cannabinoids Screen Ethyl Alcohol < 5.0 07/16/17 07/16/17 22:24 22:24 WBC RBC Hgb Hct MCV MCH MCHC RDW Plt Count MPV Sodium Potassium Chloride Carbon Dioxide Anion Gap BUN Creatinine Estimated GFR (MDRD) Glucose Calcium Total Bilirubin AST ALT Alkaline Phosphatase Total Protein Albumin Globulin Albumin/Globulin Ratio Lipase TSH Urine Color DARK YELLOW Urine Clarity CLEAR Urine pH 7.0 Ur Specific Agency 1.020 Urine Protein NEGATIVE Urine Glucose (UA) NEGATIVE Urine Ketones NEGATIVE Urine Occult Blood NEGATIVE Urine Nitrite NEGATIVE Urine Bilirubin NEGATIVE Urine Urobilinogen 0.2 (NORMAL) Ur Leukocyte Esterase NEGATIVE Ur Microscopic Review NOT INDICATED Urine Culture Comments NOT INDICATED Salicylates Urine Opiates Screen NEGATIVE Ur Oxycodone Screen NEGATIVE Urine Methadone Screen NEGATIVE Ur Propoxyphene Screen NEGATIVE Acetaminophen Ur Barbiturates Screen NEGATIVE Ur Tricyclics Screen NEGATIVE Ur Phencyclidine Scrn NEGATIVE Ur Amphetamine Screen NEGATIVE U Methamphetamines Scrn NEGATIVE U Benzodiazepines Scrn POSITIVE H Urine Cocaine Screen NEGATIVE U Cannabinoids Screen POSITIVE H Ethyl Alcohol PD MEDICAL DECISION MAKING - ED course ED course: 32 alcoholic with hx EtOH DTs and seizures, has been drinking up to half a gallon of vodka for a while, no EtOH for 48 hr 2/2 abd pain likely alcoholic gastritis and now with sig s/sx of withdrawal including tachycardia shakes and agitation, is homeless and has no transport so no way to fill meds for withdrawal even if felt safe to dc pt and with NV making him unable to tolerate PO meds and food - will admit furthermore requested SW consult when pt arrived but SW advised needed to see pts labs and then it was too late for them to evaluate him today [facility] at 1810 seen by [facility] hospitalist Dr Simon who does not feel pt sx are severe enough for admission so will dc with zantac carafate librium taper (only if not drinking) and ask SW to call pt tomorrow but when went to dc pt he was very upset, says he is homeless and it is cold and if we dc him, he will kill himself by drowning so now suicidal with a plan, voluntary, sober, but SW not available until AM so gave more ativan and pt will stay in ER tonight and talk with SW in AM planned to dc with librium but pt now saying he wants to go the store to get some alcohol because that works better than the medications, if he is not committed to stopping his drinking will not rx librium valum ativan etc turned over to operations supervisor 2nd shift Dr Kraft at midnight then pt was turned over to day shift seen by SW and declined all services and was deemed not suicidal (see consult) dced - per Dr Brito did not get the librium taper rx because pt stattes that never works (and as planned, see my notes above) (Celena Haywood) Departure - Departure Disposition: 01 Home, Self Care Clinical Impression: Abdominal pain Qualifiers: Abdominal location: generalized Qualified Code(s): R10.84 - Generalized abdominal pain Alcohol withdrawal Qualifiers: Complication of substance-induced condition: uncomplicated Qualified Code(s): F10.230 - Alcohol dependence with withdrawal, uncomplicated Gastritis Qualifiers: Gastritis type: alcoholic Chronicity: acute Gastritis bleeding: without bleeding Qualified Code(s): K29.20 - Alcoholic gastritis without bleeding Condition: Fair Instructions: ED Withdrawal Alcohol, ED Gastritis Prescriptions: Lorazepam [Ativan] 1 - 2 mg PO Q6HR PRN #30 tablet PRN Reason: withdrawal symptoms raNITIdine [Zantac] 150 mg PO BID #60 tablet Sucralfate 1 gm PO ACHS #60 tablet Comments: We also gave you a booklet with information about local resources - in this book is the crisis line which you should call if your depression gets worse and you have suicidal thoughts or plans Take the medications I prescribed for your stomach Consider getting help with your alcohol abuse - until you are committed to stopping alcohol, it is not safe for you to have a prescription for ativan or librium Follow up with [facility] this week for a recheck Discharge Date/Time: 07/17/17 10:20
[2017-07-16] MEDS ORDERED: ONDANSETRON 4 MG/2 ML VIAL IVP STA (16:32)
[2017-07-16] MEDS ORDERED: LORazepam 2 MG/ML SYRINGE ONE ×3 (17:00→21:03)
[2017-07-16 17:09] LABS: HCT - HEMATOCRIT 40.7 % (42.0-52.0); HGB - HEMOGLOBIN 13.7 g/dL (14.0-18.0); MEAN CORPUSCULAR HEMOGLOBIN 33.9 pg (27.0-31.0); MEAN CORPUSCULAR HGB CONC 33.6 g/dL (32.0-36.0); MEAN CORPUSCULAR VOLUME 100.8 fL (80.0-94.0); RED BLOOD COUNT 4.04 10^6/uL (4.70-6.10); WHITE BLOOD COUNT 6.5 x10^3/uL (4.8-10.8)
[2017-07-16 17:28] LABS: ALBUMIN/GLOBULIN RATIO 1.6 (1.0-2.2); BILIRUBIN,TOTAL 0.8 mg/dL (0.2-1.0); BUN - BLOOD UREA NITROGEN 7 mg/dL (6-20); CALCIUM 8.7 mg/dL (8.5-10.3); CARBON DIOXIDE - CO2 23 mmol/L (21-32); CHLORIDE 102 mmol/L (101-111); GFR - MDRD 87 (>89); GLUCOSE 97 mg/dL (70-100); LIPASE 49 U/L (22-51); POTASSIUM 3.8 mmol/L (3.5-5.0); SALICYLATE < 6.0 mg/dL; SODIUM 136 mmol/L (135-145); TOTAL PROTEIN 6.2 g/dL (6.7-8.2)
[2017-07-16] MEDS ORDERED: ONDANSETRON 4 MG/2 ML VIAL ONE (17:31)
[2017-07-16 17:34] LABS: ACETAMINOPHEN < 10 ug/mL (10-30)
[2017-07-16] MEDS ORDERED: MAG HYDROX/AL HYDROX/SIMETH 30 ML UDC PO STA (17:55)
[2017-07-16] MEDS ORDERED: FAMOTIDINE 20 MG/50 ML 50 ML IV ONE ×2 (17:55→19:25)
[2017-07-16] MEDS ORDERED: LIDOCAINE VISCOUS 2% 15 ML UDC MM STA (17:55)
[2017-07-16] MEDS ORDERED: LIDOCAINE VISCOUS 2% 15 ML UDC MM ONE (18:28)
[2017-07-16] MEDS ORDERED: MAG HYDROX/AL HYDROX/SIMETH 30 ML UDC ONE (18:28)
--- NOTE | 2017-07-16 18:39 | XRAY Preliminary Report ---
Exam: XR CHEST 2 VIEW PA/LAT IMPRESSION: Normal 2-view chest radiography. [facility] SITE ID: [id number]
--- NOTE | 2017-07-16 18:41 | XRAY Report ---
EXAM: CHEST RADIOGRAPHY EXAM DATE: 07/16/2017 05:59 PM. CLINICAL HISTORY: Cough upper abd pain. COMPARISON: None. TECHNIQUE: 2 views. FINDINGS: Lungs/Pleura: No focal opacities evident. No pleural effusion. No pneumothorax. Normal volumes. Mediastinum: Heart and mediastinal contours are unremarkable. Other: None. IMPRESSION: Normal 2-view chest radiography. [facility] Referring Provider Line: [phone] SITE ID: [id number]
[2017-07-16] MEDS ORDERED: MAGNESIUM SULFATE 2 GRAM 2 GM/50 ML BAG IV ONE (20:04)
[2017-07-16] MEDS ORDERED: LIDOCAINE PATCH 5% TOP STA (20:57)
[2017-07-16] MEDS ORDERED: LIDOCAINE PATCH 5% TOP ONE ×2 (21:03→21:09)
[2017-07-16 22:36] LABS: BILIRUBIN,URINE NEGATIVE (NEGATIVE)
[2017-07-16 22:39] LABS: UA CHARGE (STRIP ONLY) YES; UR CULTURE IF IND NOT INDICATED
[2017-07-16] MEDS ORDERED: LORazepam 0.5 MG TABLET PO STA (23:18)
[2017-07-16] MEDS ORDERED: LORazepam 0.5 MG TABLET ONE (23:44)
--- NOTE | 2017-07-17 02:24 | CONSULTATION NOTE ---
Referring Provider Name of Referring Provider:: Celena Patel MD Consult Date: 07/16/17 (Consult for alcohol withdrawal) Chief Complaint - Chief Complaint Chief Complaint: Back pain History of Present Illness - History Obtained From Records Reviewed: Yes History obtained from: Patient Exam Limitations: None - History of Present Illness HPI Comment/Other: Patient is a 32-year-old gentleman with a past medical history significant for obesity, tobacco abuse and alcohol abuse who presented to the emergency department with a chief complaint of back pain. 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 The patient states that he is constantly having to bend over throughout the day. He states that he bends over nearly 4000 times a day and because of this has developed back pain. Patient states that today he feels as though all his muscles are really tight and he is having significant pain in his back. The patient states that he is also been noticing that he has been having shakes and states that his last drink was 2 days ago. He states that he has been drinking about half a gallon a day by himself to help with his back pain as he does not want to take any kind of narcotic medication. The patient states that today he was having shakes and also vomited multiple times and felt nauseated. The patient states that he is homeless and has been sleeping outside. He states that he is miserable because of the pain and feels that he is withdrawing from alcohol and would like to spend the night in the hospital. He states he is sick of sleeping outside and wishes he could just . He does not state he has any plan to kill himself at this time. The patient states that he has muscle tightness all over especially in his back and his legs. The patient also states that he cannot eat because of his teeth which he needs to get fixed but he states that he has no resources to do so. The patient is completely coherent when speaking with me he does have some mild shakes tremor but he is not hallucinating, confabulating or in any kind of distress. The patient does state his body is trash. The patient also states he has a headache. Patient denies any blurred vision,runny nose, sore throat, nasal congestion, chest pain, shortness of air, orthopnea, PND, increased lower extremity swelling , abdominal pain, diarrhea, constipation, urinary urgency, urinary frequency, dysuria, joint swelling, neck stiffness, changes in appetite, recent unintentional weight loss, fever, chills, night sweats or any focal neurologic deficits. On presentation to the emergency department the patient was afebrile he was mildly tachycardic with a heart rate of 112 but when reviewing previous records the patient appears to be tachycardic on almost every hospital presentation. Patient's blood pressure was stable and he was not in any respiratory distress or tachypneic. The patient's heart rate improved after he was given IV fluids in the emergency department and was within normal limits later in the evening. I was consulted to admit the patient for alcohol withdrawal however after examining the patient and speaking with the patient the patient did not appear to be in severe enough alcohol withdrawal to warrant an admission. The patient was having no hallucinations, no confabulations and his tremor was very minimal. The patient did not appear agitated in fact he appeared very calm and lucid. The patient was able to answer all my questions appropriately and did not appear nauseated at any point. The patient was able to eat a full sandwich in front of me without vomiting. Although the patient did receive several doses of Ativan in the emergency department he was able to swallow and could easily take the Ativan as needed at home. When the emergency room physician spoke to the patient about quitting drinking the patient stated that he wanted to go and get more alcohol therefore he did not seem to be committed to stopping at this point. I could not warrant any reason to place the patient in observation or admit the patient. Eventually it appears the patient was kept in the emergency department as he developed suicidal ideations with a plan and is now awaiting social work evaluation in the morning. History - Past Medical History Cardiovascular: reports: None Respiratory: reports: Asthma Neuro: reports: None Endocrine/Autoimmune: reports: None GI: reports: Pancreatitis, Other (Alcohol abuse) : reports: None HEENT: reports: None Psych: reports: ADD/ADHD Musculoskeletal: reports: Chronic back pain Derm: reports: None MRSA Hx?: No Other Past Medical History: 1. Asthma. 2. Obesity. 3. Alcohol abuse. 4. Tobacco abuse. 5. Marijuana use. 6. Tonsillectomy - Past Surgical History HEENT: reports: Tonsil/Adenoidectomy - Family & Social History Family History: Mother: Cancer (Breast cancer) Social History Notes: Patient was born in [place], [place] and has lived in [place], [place] for 15 years. He is not , he does not have any children and lives alone. He has been working doing [employer] for the last 3 months. Patient smokes a quarter pack a day of cigarettes and has been smoking since the age of 13. The patient drinks 124 ounce beer a day but had been drinking a 12 pack of beer a day for many years he began drinking at the age of 22. The patient smokes marijuana a few times a week. He denies any other illicit drug use - POLST Patient has POLST: No POLST Status: Full Code Meds/Allgy - Home Medications Home Medications: Ambulatory Orders Medication Instructions Recorded Confirmed Diazepam [Valium] 10 mg PO PRN PRN 07/14/17 07/14/17 Sucralfate 1 gm PO ACHS #120 tablet 07/16/17 raNITIdine [Zantac] 150 mg PO BID #60 tablet 07/16/17 - Allergies Allergies/Adverse Reactions: Allergies Allergy/AdvReac Type Severity Reaction Status Date / Time meloxicam Allergy Intermediate Dizziness Verified 07/01/17 20:28 Penicillins Allergy Unknown Verified 07/01/17 20:28 prochlorperazine Allergy Anxiety Verified 07/01/17 20:28 [From Compazine] prochlorperazine edisylate * Allergy Anxiety Verified 07/01/17 20:28 [From Compazine] prochlorperazine maleate * Allergy Anxiety Verified 07/01/17 20:28 [From Compazine] diphenhydramine HCl * AdvReac Anxiety Verified 07/01/17 20:28 [From Benadryl] Review of Systems - Other Findings Other Findings: A comprehensive review of systems was performed the pertinent positives and negatives are stated above in the HPI and the remainder of the review of systems is negative. Exam - Vital Signs Reviewed Vital Signs: Yes Vital Signs: Vital Signs x48h Temp Pulse Resp BP Pulse Ox 07/16/17 21:20 37.3 C 95 20 120/80 96 07/16/17 20:30 88 16 122/78 99 - Physical Exam General Appearance: positive: No acute distress, Alert, Other (Poor hygiene, poor dentition, foul-smelling, mild tremor) Eyes Bilateral: positive: Normal inspection, PERRL, EOMI, No lid inflammation, Conjunctivae nml, No scleral icterus ENT: positive: ENT inspection nml, Pharynx nml, Dry mucous membranes, Other ( Poor dentition). negative: Purulent nasal drainage, Pharyngeal erythema Neck: positive: Nml inspection, Thyroid nml, No JVD, Trachea midline. negative : Thyromegaly, Lymphadenopathy (R), Lymphadenopathy (L), Stiff neck Respiratory: positive: Chest non-tender, No respiratory distress, Breath sounds nml. negative: Wheezes, Rales, Rhonchi Cardiovascular: positive: Regular rate & rhythm, No murmur, No gallop Abdomen: positive: Non-tender, No organomegaly, Nml bowel sounds, No distention. negative: Guarding, Rebound, Hepatomegaly Back: positive: Nml inspection. negative: CVA tenderness (R), CVA tenderness (L ) Skin: positive: Color nml, No rash, Warm. negative: Cyanosis, Diaphoresis, Pallor Extremities: positive: Non-tender, Full ROM, Nml appearance, No pedal edema Neurologic/Psychiatric: positive: Oriented x3, CN's nml (2-12), Motor nml, Sensation nml, Mood/affect nml Conclusion/Plan - Diagnosis Diagnosis: 1. Alcohol abuse. 2. Tobacco abuse. 3. Depression. 4. Homelessness - Plan Plan: 1. Patient's alcohol withdrawal appears to be mild as he does have some mild tremor but no hallucinations or confabulations. The patient has mild tachycardia on presentation which resolved with IV fluids and his heart rate is now normal. Patient has no hypertension does not appear tachypneic and is not agitated. The patient is calmly able to answer my questions and does not appear to be in any distress whatsoever. I would recommend that this patient be discharged home with a prescription for Ativan or Librium to help him through his alcohol withdrawal. The patient however does not appear to be interested in quitting drinking in that case I would not recommend any prescriptions for a benzodiazepine. The patient is able to swallow and keep food down as demonstrated by him eating a sandwich in front of me without any nausea or vomiting. There is no reason that the patient cannot be given oral ativan if he still needs it. 2. Patient was told to quit drinking and quit smoking because it is detrimental to his health. 3. The patient did voice to me that he wishes he could just . When I spoke to him he did not have a plan and was not suicidal however it appears later he told the emergency room physician that he was going to kill himself if he was discharged and that he would plan on drowning himself. It appears that the patient will be held in the emergency room overnight to be evaluated by social work in the morning because of his suicidal ideations. 4. Unfortunately the patient is homeless but does appear to have a job. I would recommend the patient be given information for shelters in the area. - Lab Results Lab results reviewed: Yes Fish Bones: 07/16/17 16:55 07/16/17 16:55 Other Lab Results: Laboratory Results WBC 6.5 x10^3/uL (4.8-10.8) 07/16/17 16:55 RBC 4.04 10^6/uL (4.70-6.10) L 07/16/17 16:55 Hgb 13.7 g/dL (14.0-18.0) L 07/16/17 16:55 Hct 40.7 % (42.0-52.0) L 07/16/17 16:55 MCV 100.8 fL (80.0-94.0) H 07/16/17 16:55 MCH 33.9 pg (27.0-31.0) H 07/16/17 16:55 MCHC 33.6 g/dL (32.0-36.0) 07/16/17 16:55 RDW 16.0 % (12.0-15.0) H 07/16/17 16:55 Plt Count 240 10^3/uL (130-450) 07/16/17 16:55 MPV 7.0 fL (7.4-11.4) L 07/16/17 16:55 Sodium 136 mmol/L (135-145) 07/16/17 16:55 Potassium 3.8 mmol/L (3.5-5.0) 07/16/17 16:55 Chloride 102 mmol/L (101-111) 07/16/17 16:55 Carbon Dioxide 23 mmol/L (21-32) 07/16/17 16:55 Anion Gap 11.0 (6-13) 07/16/17 16:55 BUN 7 mg/dL (6-20) 07/16/17 16:55 Creatinine 1.0 mg/dL (0.6-1.2) 07/16/17 16:55 Estimated GFR (MDRD) 87 (>89) L 07/16/17 16:55 Glucose 97 mg/dL (70-100) 07/16/17 16:55 Calcium 8.7 mg/dL (8.5-10.3) 07/16/17 16:55 Total Bilirubin 0.8 mg/dL (0.2-1.0) 07/16/17 16:55 AST 42 IU/L (10-42) 07/16/17 16:55 ALT 43 IU/L (10-60) 07/16/17 16:55 Alkaline Phosphatase 72 IU/L (42-121) 07/16/17 16:55 Total Protein 6.2 g/dL (6.7-8.2) L 07/16/17 16:55 Albumin 3.8 g/dL (3.2-5.5) 07/16/17 16:55 Globulin 2.4 g/dL (2.1-4.2) 07/16/17 16:55 Albumin/Globulin Ratio 1.6 (1.0-2.2) 07/16/17 16:55 Lipase 49 U/L (22-51) 07/16/17 16:55 TSH 0.50 uIU/mL (0.34-5.60) 07/16/17 16:55 Urine Color DARK YELLOW 07/16/17 22:24 Urine Clarity CLEAR (CLEAR) 07/16/17 22:24 Urine pH 7.0 PH (5.0-7.5) 07/16/17 22:24 Ur Specific [place] 1.020 (1.002-1.030) 07/16/17 22:24 Urine Protein NEGATIVE mg/dL (NEGATIVE) 07/16/17 22:24 Urine Glucose (UA) NEGATIVE mg/dL (NEGATIVE) 07/16/17 22:24 Urine Ketones NEGATIVE mg/dL (NEGATIVE) 07/16/17 22:24 Urine Occult Blood NEGATIVE (NEGATIVE) 07/16/17 22:24 Urine Nitrite NEGATIVE (NEGATIVE) 07/16/17 22:24 Urine Bilirubin NEGATIVE (NEGATIVE) 07/16/17 22:24 Urine Urobilinogen 0.2 (NORMAL) E.U./dL (NORMAL) 07/16/17 22:24 Ur Leukocyte Esterase NEGATIVE (NEGATIVE) 07/16/17 22:24 Ur Microscopic Review NOT INDICATED 07/16/17 22:24 Urine Culture Comments NOT INDICATED 07/16/17 22:24 Salicylates < 6.0 mg/dL 07/16/17 16:55 Urine Opiates Screen NEGATIVE (NEGATIVE) 07/16/17 22:24 Ur Oxycodone Screen NEGATIVE (NEGATIVE) 07/16/17 22:24 Urine Methadone Screen NEGATIVE (NEGATIVE) 07/16/17 22:24 Ur Propoxyphene Screen NEGATIVE (NEGATIVE) 07/16/17 22:24 Acetaminophen < 10 ug/mL (10-30) L 07/16/17 16:55 Ur Barbiturates Screen NEGATIVE (NEGATIVE) 07/16/17 22:24 Ur Tricyclics Screen NEGATIVE (NEGATIVE) 07/16/17 22:24 Ur Phencyclidine Scrn NEGATIVE (NEGATIVE) 07/16/17 22:24 Ur Amphetamine Screen NEGATIVE (NEGATIVE) 07/16/17 22:24 U Methamphetamines Scrn NEGATIVE (NEGATIVE) 07/16/17 22:24 U Benzodiazepines Scrn POSITIVE (NEGATIVE) H 07/16/17 22:24 Urine Cocaine Screen NEGATIVE (NEGATIVE) 07/16/17 22:24 U Cannabinoids Screen POSITIVE (NEGATIVE) H 07/16/17 22:24 Ethyl Alcohol < 5.0 mg/dL 07/16/17 16:55
[2017-07-17 10:55] VITALS: BP 124/81
== END 2017-07-17 10:20 | disposition home or self-care (01) ==
LOC: ED 14:51
DX: F10.230 Alcohol dependence with withdrawal, uncomplicated (principal); K29.20 Alcoholic gastritis without bleeding; M54.9 Dorsalgia, unspecified; G89.29 Other chronic pain; F32.9 Major depressive disorder, single episode, unspecified; R45.851 Suicidal ideations; F17.200 Nicotine dependence, unspecified, uncomplicated; Z59.0 Homelessness
CPT/HCPCS: 36415; 71020; 80053; 80306; 80307; 80320; 80329; 81003; 83690; 84443; 85027; 96361; 96365; 96367; 96368; 96375; 96376; 99284; A9270; J2060; J3411; 81001; 87086